=== PATIENT | male | born 1960 | race Caucasian/White ===

== ENCOUNTER 2021-04-11 10:19 | Outpatient (CLI) | payer OTHER, SELFPAY ==
[2021-04-11 11:44] LABS: Basophils Absolute Auto 0.1 K/mm3 (0.0-0.1); Basophils Percent Auto 2.2 % (0.2-1.2); Eosinophils Percent Auto 0.9 % (0-4.4); Hematocrit 38.2 % (42.0-52.0); Hemoglobin 12.8 g/dL (14.0-18.0); Immature Granulocyte Absolute 0.02 K/mm3 (0.00-0.031); Immature Granulocyte Percent A 0.6 % (0-0.5); Lymphocytes Absolute Auto 0.55 K/mm3 (0.9-3.2); Lymphocytes Percent Auto 17.3 % (18.3-44.2); Mean Corpuscular HGB Conc 33.5 g/dl (32-36); Mean Corpuscular Hemoglobin 38.2 pg (26-34); Mean Platelet Volume 10.2 fl (7.4-10.4); Monocytes Absolute Auto 0.3 K/mm3 (0.1-0.6); Monocytes Percent Auto 10.7 % (2.6-8.5); Neutrophils Absolute Auto 2.2 K/mm3 (1.3-6.7); Neutrophils Percent Auto 68.3 % (45.5-73.1); Platelet Count Result 88 k/mm3 (150-375); Red Blood Count 3.35 M/mm3 (4.6-6.20); Red Cell Distribution Width 14.4 % (11.5-14.5); White Blood Count 3.2 K/mm3 (4.5-10.0)
[2021-04-11 13:08] LABS: Vitamin D 25 Hydroxy 25.5 ng/mL
[2021-04-11 13:12] LABS: Erythrocyte Sedimentation Rate 103 mm/hr (0-20)
[2021-04-11 13:59] LABS: Alanine Aminotransferase 91 U/L (4-50); Albumin Level 3.3 g/dL (3.5-5.1); Alkaline Phosphatase 146 U/L (38-126); Anion Gap 4 mmol/L (8-16); Aspartate Amino Transferase 309 U/L (17-59); Bilirubin,Total 3.2 mg/dL (0.2-1.3); Blood Urea Nitrogen 26 mg/dL (9-20); Calcium 9.3 mg/dL (8.4-10.2); Carbon Dioxide 31 mmol/L (22-30); Chloride 98 mmol/L (98-107); Cholesterol 182 mg/dL (0-200); Estimated Glomerular Filt Rate > 60; Glucose 119 mg/dL (65-110); HDL Direct 19 mg/dL; Potassium 4.7 mmol/L (3.4-5.0); Sodium 133 mmol/L (137-145); Triglycerides 241 mg/dL (<150); Uric Acid 7.1 mg/dL (3.5-8.5)
[2021-04-11 14:16] LABS: LDL Cholesterol Direct 111 mg/dL
[2021-04-11 14:31] LABS: Prostate Specific Antigen 0.9 ng/mL (< OR = 4.0)
[2021-04-11 14:50] LABS: Vitamin B12 > 1000.0 pg/mL (239-931)
[2021-04-11 15:12] LABS: Free T4 Free Thyroxine Reflex 1.02 ng/dL (0.78-2.19)
[2021-04-11 15:24] LABS: Hemoglobin A1C 4.2 % (<5.7)
[2021-04-11 15:56] LABS: Rheumatoid Factor 92.1 IU/ML (<12)
[2021-04-11 16:42] LABS: Total Triiodothyronine (T3) 2.39 NG/ML (0.97-1.69)
[2021-04-14 22:19] LABS: Anti Cyclic Citrullinated Pept <16 Units (<20)
== END 2021-04-11 10:20 | disposition home or self-care (01) ==
PROVIDERS: PCP Family Medicine; Visit Provider Family Medicine
DX: E55.9 Vitamin D deficiency, unspecified (principal); M25.50 Pain in unspecified joint; G62.9 Polyneuropathy, unspecified; I10 Essential (primary) hypertension; Z12.5 Encounter for screening for malignant neoplasm of prostate; Z13.220 Encounter for screening for lipoid disorders; Z00.00 Encounter for general adult medical examination without abnormal findings
CPT/HCPCS: 36415; 80053; 80061; 82306; 82607; 83036; 84153; 84439; 84443; 84480; 84550; 85025; 85652; 86038; 86200; 86430; G0103

== ENCOUNTER 2021-05-08 11:07 | Outpatient (CLI) | payer OTHER, SELFPAY ==
[2021-05-08 11:38] LABS: INR 1.1; Prothrombin Time 13.9 Seconds (11.1-14.7)
[2021-05-08 12:17] LABS: Iron 123 ug/dL (49-181)
[2021-05-08 12:27] LABS: Percent Iron Saturation 31 % (20-50)
[2021-05-08 12:49] LABS: Hepatitis B Surface Antigen Negative (Negative)
[2021-05-08 12:55] LABS: HAV RESULT Negative (Negative); Hepatitis B Core IgM Result Negative (Negative)
[2021-05-08 13:09] LABS: Hepatitis C Virus Antibody Reactive (Negative)
[2021-05-10 18:51] LABS: Hepatitis C RNA, Quant PCR 4090000 IU/mL
[2021-05-10 20:56] LABS: Ceruloplasmin 36 mg/dL (18-36)
[2021-05-11 20:13] LABS: Tissue Transglutaminase IgA Ab 3 U/mL (<4)
[2021-05-11 23:11] LABS: Tissue Transglutaminase IgG Ab 6 U/mL (<6)
[2021-05-11 23:58] LABS: Mitochondrial (M2) Ab (IgG) <=20.0 U (<=20.0)
[2021-05-12 18:47] LABS: Alpha Fetoprotein Tumor Marker 3.8 ng/mL (<6.1)
== END 2021-05-08 11:08 | disposition home or self-care (01) ==
PROVIDERS: PCP Family Medicine; Visit Provider Nurse Practitioner Family
DX: R74.8 Abnormal levels of other serum enzymes (principal)
CPT/HCPCS: 36415; 80074; 82104; 82105; 82390; 82728; 83516; 83520; 83540; 83550; 85610; 87522

== ENCOUNTER 2021-05-12 11:53 | Outpatient (CLI) | payer OTHER, SELFPAY ==
[2021-05-12 12:55] LABS: Basophils Absolute Auto 0.1 K/mm3 (0.0-0.1); Basophils Percent Auto 2.9 % (0.2-1.2); Eosinophils Absolute Auto 0.2 K/mm3 (0-0.3); Eosinophils Percent Auto 5.4 % (0-4.4); Hematocrit 34.2 % (42.0-52.0); Hemoglobin 11.5 g/dL (14.0-18.0); Immature Granulocyte Absolute 0.03 K/mm3 (0.00-0.031); Immature Granulocyte Percent A 1.1 % (0-0.5); Lymphocytes Absolute Auto 0.93 K/mm3 (0.9-3.2); Lymphocytes Percent Auto 33.2 % (18.3-44.2); Mean Corpuscular HGB Conc 33.6 g/dl (32-36); Mean Corpuscular Volume 115.9 fl (80-100); Mean Platelet Volume 9.9 fl (7.4-10.4); Monocytes Absolute Auto 0.4 K/mm3 (0.1-0.6); Monocytes Percent Auto 13.2 % (2.6-8.5); Neutrophils Absolute Auto 1.2 K/mm3 (1.3-6.7); Neutrophils Percent Auto 44.2 % (45.5-73.1); Platelet Count Result 84 k/mm3 (150-375); Red Blood Count 2.95 M/mm3 (4.6-6.20); Red Cell Distribution Width 15.5 % (11.5-14.5); White Blood Count 2.8 K/mm3 (4.5-10.0)
[2021-05-12 14:25] LABS: Alanine Aminotransferase 78 U/L (4-50); Albumin Level 3.2 g/dL (3.5-5.1); Alkaline Phosphatase 160 U/L (38-126); Anion Gap 5 mmol/L (8-16); Aspartate Amino Transferase 179 U/L (17-59); Bilirubin,Total 1.5 mg/dL (0.2-1.3); Blood Urea Nitrogen 19 mg/dL (9-20); Carbon Dioxide 27 mmol/L (22-30); Chloride 100 mmol/L (98-107); Estimated Glomerular Filt Rate > 60; Folic Acid 19.4 ng/mL (2.76->20); Glucose 87 mg/dL (65-110); Lactate Dehydrogenase 1039 U/L (313-618); Potassium 4.1 mmol/L (3.4-5.0); Sodium 132 mmol/L (137-145); Vitamin B12 > 1000.0 pg/mL (239-931)
== END 2021-05-12 11:54 | disposition home or self-care (01) ==
PROVIDERS: PCP Family Medicine; Visit Provider Internal Medicine Hematology & Oncology
DX: D61.818 Other pancytopenia (principal)
CPT/HCPCS: 36415; 80053; 82607; 82746; 83615; 85025

== ENCOUNTER 2021-05-27 07:51 | Outpatient (CLI) | payer OTHER, SELFPAY ==
--- NOTE | ~2021-05-27 | US_ITS ---
US abdomen limited INDICATION: Abnormal liver function tests PROCEDURE: Realtime right upper abdominal ultrasound. COMPARISON: No prior studies for comparison. FINDINGS: The pancreas is normal without focal mass or pancreatic ductal dilation. Liver surface is nodular, compatible with cirrhosis. No focal hepatic masses are identified. No significant biliary di latation. There is normal directional flow in the portal vein. Gallbladder is not well distended, although there appears to be gallbladder wall thickening. Common bile duct measures 4 mm. No sonographic Moore's sign. IMPRESSION: 1: Cirrhosis of the liver. 2: Mild gallbladder wall thickening. This could indicate interstitial edema, chronic liver disease o r chronic cholecystitis. Reviewed, dictated and finalized at location A. IMPRESSION: 1: Cirrhosis of the liver. 2: Mild gallbladder wall thickening. This could indicate interstitial edema, c hronic liver disease or chronic cholecystitis.
== END 2021-05-27 07:52 | disposition home or self-care (01) ==
LOC: ANHIMG 07:53
PROVIDERS: PCP Family Medicine; Visit Provider Nurse Practitioner Family
DX: R74.8 Abnormal levels of other serum enzymes (principal); M48.061 Spinal stenosis, lumbar region without neurogenic claudication; K76.0 Fatty (change of) liver, not elsewhere classified
CPT/HCPCS: 76705

== ENCOUNTER 2021-06-12 02:03 | Day surgery (SDC) | payer OTHER, SELFPAY ==
[2021-06-02 11:02] VITALS: BMI 24.1
--- NOTE | 2021-06-09 18:54 | P.PNAN_ITS ---
Anes - Initial Pre Proc Eval Procedure: Operation Date: 06/12/21 09:00 Proposed Procedures p Esophagogastroduodenoscopy & Screening Colonoscopy - Dur Ugalde MD Date/Time: 06/09/21 18:54 Surgeon: Dru Lehman MD Pre Op Diagnosis: neoplasm screening, epigastric pain Patient Data Age: 60 Gender: M Height: 1.78 m Weight: 76.4 kg Allergies Allergy/AdvReac Type Severity Reaction Status Date / Time No Known Allergies Allergy Verified 06/12/21 08:11 Home Medications Medication Instructions Recorded Confirmed Type lisinopril 10 1 tablet PO DAILY #90 tablet 03/27/21 06/12/21 Rx mg-hydrochlorothiazide 12.5 mg tablet Patient hx anesthesia problems: none Family hx anesthesia problems: none Results Review: All pre-operative results and documents have been reviewed as part of the pre-operative evaluation. [facility] Past Medical History Medical History (Updated 05/08/21 @ 13:06 by REECE Jacobson) Alcohol abuse Arthritis Asthma Encounter for screening colonoscopy Essential (primary) hypertension History of vitreous hemorrhage of left eye 08/2018 Tobacco abuse Surgical History Surgical History History of vitrectomy 08/2018 - Left Social History Social History Smoking packs per day: 0.5 Smoking cigarettes per day: 10.0 Years smoked: 30 Smoking pack-years: 15.00 Smoking status: Current every day smoker Tobacco type: cigarettes Alcohol intake: current Drinks per week: 14 Alcohol use details: beer Substance use: current Substance use type: marijuana Other substance usage details: occasionally Living arrangements: alone Gender identity (if verbalized by the patient): Male Spiritual care concerns: No Anes - Eval Final PreProcedure Day of Procedure 06/09/21 18:54 Patient weight: normal Heart: regular rate and rhythm Lungs: clear to auscultation and normal air movement Airway: Mallampati scale class II Neurological: alert and oriented Last oral intake: >/= 8 hours ASA classification: III Emergent: no Anesthetic plan: proceed Anesthesia type and monitoring: general GIVS and standard monitoring Results Review: All pre-operative results and documents have been reviewed as part of the pre-operative evaluation. Informed Consent: The patient's anesthetic plan and its attendant risks and benefits were discussed with the patient/family/POA. Questions were solicited and answers provided to the satisfaction of the patient/family/POA.
[2021-06-12 08:14] VITALS: BP 171/79; PULSE 84; RESP 16; TEMP 36.2; O2SAT 100
[2021-06-12] MEDS: LACTATED RINGERS 1,000 ML 150 ML IV CONT (08:21)
--- NOTE | 2021-06-12 08:40 | PM.HPGS ---
History of Present Illness History of Present Illness Consent: Risks, benefits, and alternatives have been discussed and questions answered. Patient agrees to proceed with procedure. Chief complaint: neoplasm screening, epigastric pain Narrative: Francesco Fox is a 60 year old male with upper abdominal pain and elevated liver enzymes with pancytopenia, work up revealed new diagnosis of HCV cirrhosis, also drinks 2 beers daily for years. Never had scopes Review of Systems Constitutional: Constitutional: Denies headache(s) and Denies weakness Eyes: Eyes: Denies blurry vision ENT: Reports Normal hearing present, Denies headache(s) and Denies neck pain Cardiovascular: Cardiovascular: Denies chest pain and Denies dyspnea Respiratory: Respiratory: Denies dyspnea Gastrointestinal: Gastrointestinal: Reports no additional gastrointestinal complaints Genitourinary: Genitourinary: Denies dysuria Musculoskeletal: Musculoskeletal: Denies neck pain Integumentary/Breasts: Skin/Breast: Denies dry skin Neurologic: Reports Normal hearing present, Denies headache(s) and Denies weakness Psychiatric: Psychiatric: Denies anxiety Endocrine: Endocrine: Denies change in body appearance Hematologic/Lymphatic: Hematologic/Lymphatic: Denies easy bleeding Allergic/Immunologic: Allergic/Immunologic: Denies urticaria PMFSH Past Medical History Medical History (Updated 06/12/21 @ 08:41 by Dru Lehman MD) Alcohol abuse Arthritis Asthma Chronic hepatitis C with cirrhosis Encounter for screening colonoscopy Essential (primary) hypertension History of vitreous hemorrhage of left eye 08/2018 Tobacco abuse Surgical History Surgical History History of vitrectomy 08/2018 - Left Social History Social History Smoking packs per day: 0.5 Smoking cigarettes per day: 10.0 Years smoked: 30 Smoking pack-years: 15.00 Smoking status: Current every day smoker Tobacco type: cigarettes Alcohol intake: current Drinks per week: 14 Alcohol use details: beer Substance use: current Substance use type: marijuana Other substance usage details: occasionally Living arrangements: alone Gender identity (if verbalized by the patient): Male Spiritual care concerns: No Meds Home Medications and Allergies Home Medications Medication Instructions Recorded Confirmed Type lisinopril 10 1 tablet PO DAILY #90 tablet 03/27/21 06/12/21 Rx mg-hydrochlorothiazide 12.5 mg tablet Allergies Allergy/AdvReac Type Severity Reaction Status Date / Time No Known Allergies Allergy Verified 06/12/21 08:11 Vital Signs Vital Signs - 24 hr 06/12/21 08:14 Temperature 97.1 F L Pulse Rate 84 Respiratory Rate 16 Blood Pressure 171/79 H Pulse Oximetry 100 Exam Const: General: comfortable and no acute distress HENMT: General nose exam: Normal nares present Eyes: General: appearance normal, both eyes and all related structures Neck: Neck: no JVD Resp: Auscultation: clear to auscultation bilaterally Cardio: Rate: regular rate Rhythm: regular rhythm GI: Inspection: non-distended GI Palp: Yes Soft to palpation Skin: General skin exam: normal color Neuro: General: gait normal Speech: normal speech Extrem: General: normal to inspection Psych: Mental Status: mental status grossly normal Assessment and Plan Assessment and plan (1) Chronic hepatitis C with cirrhosis: Code(s): B18.2 - Chronic viral hepatitis C; K74.60 - Unspecified cirrhosis of liver Status: Acute Assessment and Plan: egd to assess if varices, pgh, etc then will need follow-up in office to discuss options of treatment (never been treated) (2) Encounter for screening colonoscopy: Code(s): Z12.11 - Encounter for screening for malignant neoplasm of colon Status: Acute
[2021-06-12 09:09] VITALS: BP 151/94; PULSE 72; RESP 12; O2SAT 100
[2021-06-12 09:19] VITALS: BP 166/97; PULSE 66; RESP 14; O2SAT 100
[2021-06-12 09:29] VITALS: BP 180/99; PULSE 64; RESP 16; O2SAT 100
== END 2021-06-12 09:57 | disposition home or self-care (01) ==
PROVIDERS: PCP Family Medicine; Visit Provider Internal Medicine Gastroenterology
PROC: 0DJ08ZZ Inspection of Upper Intestinal Tract, Via Natural or Artificial Opening Endoscopic (ICD-10-PCS; CPT 43235; principal; 2021-06-12 09:00)
DX: Z12.11 Encounter for screening for malignant neoplasm of colon (principal); K64.8 Other hemorrhoids; K29.50 Unspecified chronic gastritis without bleeding; K29.80 Duodenitis without bleeding; K44.9 Diaphragmatic hernia without obstruction or gangrene; K63.5 Polyp of colon; D12.4 Benign neoplasm of descending colon; R10.13 Epigastric pain; K74.60 Unspecified cirrhosis of liver; D61.818 Other pancytopenia
CPT/HCPCS: 45380; 45385; 43239; 88305; J2001; J2704; J7120

== ENCOUNTER 2021-07-11 11:05 | Outpatient (CLI) | payer OTHER, SELFPAY ==
[2021-07-11 11:55] LABS: Basophils Absolute Auto 0.1 K/mm3 (0.0-0.1); Basophils Percent Auto 2.7 % (0.2-1.2); Eosinophils Absolute Auto 0.2 K/mm3 (0-0.3); Eosinophils Percent Auto 6.3 % (0-4.4); Hematocrit 35.9 % (42.0-52.0); Hemoglobin 11.7 g/dL (14.0-18.0); Immature Granulocyte Absolute 0.03 K/mm3 (0.00-0.031); Immature Granulocyte Percent A 0.9 % (0-0.5); Lymphocytes Absolute Auto 0.81 K/mm3 (0.9-3.2); Lymphocytes Percent Auto 24.3 % (18.3-44.2); Mean Corpuscular HGB Conc 32.6 g/dl (32-36); Mean Corpuscular Hemoglobin 36.8 pg (26-34); Mean Corpuscular Volume 112.9 fl (80-100); Mean Platelet Volume 9.6 fl (7.4-10.4); Monocytes Absolute Auto 0.5 K/mm3 (0.1-0.6); Monocytes Percent Auto 15.3 % (2.6-8.5); Neutrophils Absolute Auto 1.7 K/mm3 (1.3-6.7); Neutrophils Percent Auto 50.5 % (45.5-73.1); Platelet Count Result 89 k/mm3 (150-375); Red Blood Count 3.18 M/mm3 (4.6-6.20); Red Cell Distribution Width 13.5 % (11.5-14.5); White Blood Count 3.3 K/mm3 (4.5-10.0)
[2021-07-11 12:09] LABS: Alanine Aminotransferase 56 U/L (4-50); Albumin Level 3.1 g/dL (3.5-5.1); Alkaline Phosphatase 226 U/L (38-126); Anion Gap 5 mmol/L (8-16); Aspartate Amino Transferase 104 U/L (17-59); Bilirubin,Total 0.9 mg/dL (0.2-1.3); Blood Urea Nitrogen 18 mg/dL (9-20); Calcium 8.5 mg/dL (8.4-10.2); Carbon Dioxide 27 mmol/L (22-30); Chloride 100 mmol/L (98-107); Estimated Glomerular Filt Rate > 60; Glucose 127 mg/dL (65-110); Potassium 4.4 mmol/L (3.4-5.0); Sodium 132 mmol/L (137-145)
[2021-07-11 12:10] LABS: Lipase 245 U/L (23-300)
[2021-07-11 21:18] LABS: Free T4 Free Thyroxine Reflex 0.81 ng/dL (0.78-2.19)
[2021-07-11 22:02] LABS: Total Triiodothyronine (T3) 2.58 NG/ML (0.97-1.69)
== END 2021-07-11 11:06 | disposition home or self-care (01) ==
PROVIDERS: Nurse Practitioner Family; PCP Family Medicine; Visit Provider Family Medicine
DX: B18.2 Chronic viral hepatitis C (principal); K74.60 Unspecified cirrhosis of liver; I10 Essential (primary) hypertension; F10.10 Alcohol abuse, uncomplicated; R10.9 Unspecified abdominal pain; R94.6 Abnormal results of thyroid function studies
CPT/HCPCS: 36415; 80053; 83690; 84439; 84443; 84480; 85025

== ENCOUNTER 2021-12-04 14:51 | Outpatient (CLI) | payer OTHER, SELFPAY ==
[2021-12-04 15:29] LABS: Basophils Absolute Auto 0.1 K/mm3 (0.0-0.1); Eosinophils Absolute Auto 0.2 K/mm3 (0-0.3); Eosinophils Percent Auto 7.7 % (0-4.4); Hematocrit 34.4 % (42.0-52.0); Hemoglobin 11.6 g/dL (14.0-18.0); Immature Granulocyte Absolute 0.01 K/mm3 (0.00-0.031); Immature Granulocyte Percent A 0.3 % (0-0.5); Lymphocytes Percent Auto 26.8 % (18.3-44.2); Mean Corpuscular HGB Conc 33.7 g/dl (32-36); Mean Corpuscular Hemoglobin 37.1 pg (26-34); Mean Corpuscular Volume 109.9 fl (80-100); Mean Platelet Volume 9.4 fl (7.4-10.4); Monocytes Absolute Auto 0.5 K/mm3 (0.1-0.6); Monocytes Percent Auto 17.8 % (2.6-8.5); Neutrophils Absolute Auto 1.3 K/mm3 (1.3-6.7); Neutrophils Percent Auto 44.4 % (45.5-73.1); Platelet Count Result 91 k/mm3 (150-375); Red Blood Count 3.13 M/mm3 (4.6-6.20); Red Cell Distribution Width 14.3 % (11.5-14.5)
[2021-12-04 15:39] LABS: Alanine Aminotransferase 71 U/L (4-50); Alkaline Phosphatase 181 U/L (38-126); Anion Gap 4 mmol/L (8-16); Aspartate Amino Transferase 173 U/L (17-59); Bilirubin,Total 1.8 mg/dL (0.2-1.3); Blood Urea Nitrogen 16 mg/dL (9-20); Calcium 7.9 mg/dL (8.4-10.2); Carbon Dioxide 27 mmol/L (22-30); Chloride 98 mmol/L (98-107); Estimated Glomerular Filt Rate > 60; Glucose 102 mg/dL (65-110); Potassium 4.6 mmol/L (3.4-5.0); Sodium 129 mmol/L (137-145)
== END 2021-12-04 14:52 | disposition home or self-care (01) ==
PROVIDERS: PCP Family Medicine; Visit Provider Internal Medicine Hematology & Oncology
DX: D61.818 Other pancytopenia (principal)
CPT/HCPCS: 36415; 80053; 85025

== ENCOUNTER 2021-12-29 07:47 | Outpatient (CLI) | payer OTHER, SELFPAY ==
--- NOTE | ~2021-12-29 | US_ITS ---
EXAMINATION: US abdomen complete DATE: 12/29/2021 09:25 INDICATION: Chronic viral hepatitis TECHNIQUE: Multiple grayscale and Doppler ultrasound images of the abdomen were obtained. COMPARISON: 05/27/2021 FINDINGS: The head and body of the pancreas are normal. The pancreatic tail is obscured by bowel gas. The liver demonstrates increased echogenicity and heterogeneous echotexture. There is nodularity of the liver surface. Normal hepatopetal flow in the main portal vein. There is no pericholecystic fluid or cholelithiasis. Mild gallbladder wall thickening is noted, likely related to chronic liver diseas e. The normal common bile duct measures 4 mm. There was no sonographic Moore sign. The visualized po rtions of the aorta and inferior vena cava are normal. The right kidney measures 12.5 x 7.8 x 6.4 cm. The left kidney measures 11.8 x 6.4 x 6.4 cm. The kidn eys demonstrate normal parenchymal echogenicity. There is no hydronephrosis. The spleen is normal in appearance and measures 12.0 cm. IMPRESSION: 1. Cirrhosis. Reviewed, dictated and finalized at location B. IMPRESSION: 1. Cirrhosis.
[2021-12-29 09:33] LABS: Hematocrit 36.4 % (42.0-52.0); Hemoglobin 12.5 g/dL (14.0-18.0); Mean Corpuscular HGB Conc 34.3 g/dl (32-36); Mean Corpuscular Hemoglobin 36.4 pg (26-34); Mean Corpuscular Volume 106.1 fl (80-100); Mean Platelet Volume 9.9 fl (7.4-10.4); Platelet Count Result 89 k/mm3 (150-375); Red Blood Count 3.43 M/mm3 (4.6-6.20); Red Cell Distribution Width 14.6 % (11.5-14.5); White Blood Count 3.1 K/mm3 (4.5-10.0)
[2021-12-29 09:55] LABS: Alanine Aminotransferase 59 U/L (4-50); Albumin Level 3.4 g/dL (3.5-5.1); Alkaline Phosphatase 152 U/L (38-126); Anion Gap 4 mmol/L (8-16); Aspartate Amino Transferase 141 U/L (17-59); Blood Urea Nitrogen 13 mg/dL (9-20); Calcium 8.2 mg/dL (8.4-10.2); Carbon Dioxide 28 mmol/L (22-30); Chloride 97 mmol/L (98-107); Estimated Glomerular Filt Rate > 60; Glucose 91 mg/dL (65-110); INR 1.3; Prothrombin Time 15.2 Seconds (11.1-14.7); Sodium 129 mmol/L (137-145)
[2021-12-29 11:24] LABS: Free T4 Free Thyroxine Reflex 0.96 ng/dL (0.78-2.19)
[2021-12-29 12:08] LABS: Total Triiodothyronine (T3) 1.85 NG/ML (0.97-1.69)
== END 2021-12-29 07:48 | disposition home or self-care (01) ==
PROVIDERS: PCP Family Medicine; Visit Provider Internal Medicine Gastroenterology
DX: B18.2 Chronic viral hepatitis C (principal); K74.60 Unspecified cirrhosis of liver; E03.9 Hypothyroidism, unspecified; E55.9 Vitamin D deficiency, unspecified
CPT/HCPCS: 36415; 76700; 80053; 82306; 84439; 84443; 84480; 85027; 85610

== ENCOUNTER 2022-03-09 10:15 | Outpatient (CLI) | payer OTHER, SELFPAY ==
[2022-03-09 10:38] LABS: Hemoglobin 9.9 g/dL (14.0-18.0); Immature Platelet Fraction Pct 4.4 % (0.9-11.2); Mean Corpuscular Hemoglobin 37.5 pg (26-34); Mean Corpuscular Volume 113.6 fl (80-100); Mean Platelet Volume 10.1 fl (7.4-10.4); Platelet Count Result 77 k/mm3 (150-375); Red Blood Count 2.64 M/mm3 (4.6-6.20); Red Cell Distribution Width 15.7 % (11.5-14.5); White Blood Count 2.5 K/mm3 (4.5-10.0)
[2022-03-09 10:46] LABS: Alanine Aminotransferase 63 U/L (6-50); Alkaline Phosphatase 111 U/L (38-126); Anion Gap 3 mmol/L (8-16); Aspartate Amino Transferase 157 U/L (17-59); Bilirubin,Total 2.3 mg/dL (0.2-1.3); Blood Urea Nitrogen 21 mg/dL (9-20); Calcium 8.3 mg/dL (8.4-10.2); Carbon Dioxide 26 mmol/L (22-30); Chloride 102 mmol/L (98-107); Estimated Glomerular Filt Rate > 60; Glucose 132 mg/dL (65-110); Potassium 3.9 mmol/L (3.4-5.0); Sodium 131 mmol/L (137-145)
[2022-03-09 10:47] LABS: INR 1.3; Prothrombin Time 15.9 Seconds (11.1-14.7)
[2022-03-09 11:29] LABS: HIV 1/2 Ab P24 Ag Result Negative (Negative)
[2022-03-09 12:14] LABS: Free T4 Free Thyroxine Reflex 0.62 ng/dL (0.78-2.19)
[2022-03-13 13:43] LABS: Hepatitis C Viral RNA PCR 2110000 IU/mL
[2022-03-15 07:14] LABS: HCV Genotype, LiPA 1a
[2022-03-15 17:34] LABS: ALT 47 U/L (9-46); Alpha-2-Macroglobulin 311 mg/dL (106-279); Apolipoprotein A1 113 mg/dL (94-176); Fibrosis Score 0.98; Fibrosis Stage F4; GGT 126 U/L (3-70); Haptoglobin <8 mg/dL (43-212); Necroinflammat Act Grade A1-A2; Total Bilirubin 2.3 mg/dL (0.2-1.2)
== END 2022-03-09 10:16 | disposition home or self-care (01) ==
LOC: ANHLAB 10:16
PROVIDERS: Nurse Practitioner Family; PCP Family Medicine; Visit Provider Internal Medicine Gastroenterology
DX: B18.2 Chronic viral hepatitis C (principal); K74.60 Unspecified cirrhosis of liver; E03.9 Hypothyroidism, unspecified
CPT/HCPCS: 36415; 80053; 81596; 84439; 84443; 85027; 85055; 85610; 86703; 87522; G0432

== ENCOUNTER 2022-06-19 14:17 | Outpatient (CLI) | payer OTHER, SELFPAY ==
[2022-06-19 20:02] LABS: Alanine Aminotransferase 63 U/L (6-50); Albumin Level 2.9 g/dL (3.5-5.1); Alkaline Phosphatase 187 U/L (38-126); Anion Gap 6 mmol/L (8-16); Aspartate Amino Transferase 168 U/L (17-59); Bilirubin,Total 2.4 mg/dL (0.2-1.3); Blood Urea Nitrogen 16 mg/dL (9-20); Calcium 7.9 mg/dL (8.4-10.2); Carbon Dioxide 28 mmol/L (22-30); Chloride 98 mmol/L (98-107); Estimated Glomerular Filt Rate > 60; Glucose 100 mg/dL (65-110); Potassium 4.1 mmol/L (3.4-5.0); Sodium 132 mmol/L (137-145)
[2022-06-19 20:15] LABS: Free T4 Free Thyroxine 1.72 ng/mL (0.78-2.19)
== END 2022-06-19 14:18 | disposition home or self-care (01) ==
LOC: ANHGOSHLAB 14:19
PROVIDERS: PCP Family Medicine; Visit Provider Nurse Practitioner Family
DX: E03.9 Hypothyroidism, unspecified (principal); I10 Essential (primary) hypertension
CPT/HCPCS: 36415; 80053; 84439; 84443

== ENCOUNTER 2022-12-27 14:22 | Outpatient (CLI) | payer OTHER, SELFPAY ==
[2022-12-27 14:52] LABS: Hematocrit 32.1 % (42.0-52.0); Hemoglobin 10.7 g/dL (14.0-18.0); Mean Corpuscular HGB Conc 33.3 g/dl (32-36); Mean Corpuscular Hemoglobin 37.7 pg (26-34); Mean Platelet Volume 9.6 fl (7.4-10.4); Platelet Count Result 113 k/mm3 (150-375); Red Blood Count 2.84 M/mm3 (4.6-6.20); Red Cell Distribution Width 17.3 % (11.5-14.5); White Blood Count 4.3 K/mm3 (4.5-10.0)
[2022-12-27 14:58] LABS: Cholesterol 165 mg/dL (0-200); HDL Direct 42 mg/dL; Triglycerides 98 mg/dL (<150)
[2022-12-27 14:59] LABS: Alanine Aminotransferase 83 U/L (6-50); Albumin Level 3.3 g/dL (3.5-5.1); Alkaline Phosphatase 180 U/L (38-126); Anion Gap 5 mmol/L (8-16); Aspartate Amino Transferase 180 U/L (17-59); Bilirubin,Total 2.6 mg/dL (0.2-1.3); Blood Urea Nitrogen 17 mg/dL (9-20); Calcium 7.9 mg/dL (8.4-10.2); Carbon Dioxide 27 mmol/L (22-30); Chloride 95 mmol/L (98-107); Estimated Glomerular Filt Rate > 60; Glucose 76 mg/dL (65-110); Potassium 4.5 mmol/L (3.4-5.0); Sodium 127 mmol/L (137-145)
[2022-12-27 15:02] LABS: INR 1.1; Prothrombin Time 15.1 Seconds (11.1-14.7)
[2022-12-27 15:08] LABS: LDL Cholesterol Direct 90 mg/dL
[2022-12-27 18:43] LABS: Vitamin D 25 Hydroxy 31.4 ng/mL
[2022-12-27 19:33] LABS: Free T4 Free Thyroxine Reflex 0.97 ng/dL (0.78-2.19)
[2022-12-27 21:34] LABS: Total Triiodothyronine (T3) 1.33 NG/ML (0.97-1.69)
== END 2022-12-27 14:23 | disposition home or self-care (01) ==
PROVIDERS: PCP Family Medicine; Visit Provider Internal Medicine Gastroenterology
DX: B18.2 Chronic viral hepatitis C (principal); K74.60 Unspecified cirrhosis of liver; E53.8 Deficiency of other specified B group vitamins; Z12.5 Encounter for screening for malignant neoplasm of prostate; R73.9 Hyperglycemia, unspecified; E03.9 Hypothyroidism, unspecified; E55.9 Vitamin D deficiency, unspecified; E78.5 Hyperlipidemia, unspecified
CPT/HCPCS: 36415; 80053; 80061; 82306; 82607; 83036; 84153; 84439; 84443; 84480; 85027; 85610; G0103

== ENCOUNTER 2023-02-13 12:44 | Outpatient (CLI) | payer OTHER, SELFPAY ==
--- NOTE | ~2023-02-13 | CT_ITS ---
CT Scan of the Chest without Contrast: Clinical Indication: Lung cancer screening, personal history of nicotine dependence Technique: Contiguous sections were acquired throughout the chest without intravenous contrast. Dose reduction technique was used on this scan by utilizing automated exposure control and iterative recon struction technique. The dose-length product (DLP) was 117.40 mGy-cm. Findings: There is no evidence of any significant mediastinal, hilar or axillary lymphadenopathy. There are ath erosclerotic calcifications of the aorta and coronary arteries. There is no evidence of pleural or pericardial effusion. The lungs are clear. No pulmonary nodules or infiltrates are noted. Images through the upper abdomen reveal medullary nephrocalcinosis bilaterally. Micronodular contour of the liver present. Impression: Lung RADS 1: Negative. 12 month follow-up screening CT advised. Cirrhotic change of the liver. Medullary nephrocalcinosis. Reviewed, dictated and finalized at [facility]. Impression: Lung RADS 1: Negative. 12 month follow-up screening CT advised. Cirrhotic change of the liver. Medullary nephrocalcinosis.
--- NOTE | 2023-02-17 20:06 | WPDPFTINT ---
PFT Procedure Performed PFT Procedure Performed Plethysmography (Lung Vol) Diffusing Cap (DLCO) PFT Interpretation DOS: 02/13/2023 REQUESTING: Aleshia Maddox PA-C REASON FOR TESTING: asthma, tobacco use PULMONARY FUNCTION TESTS The results are not reliable or reproducible. Spirometry: Spirometry could not be reliably obtained so results are not available. Bronchodilator was administered with a drop in the FEV1, 22%. Without reliable baseline results, bronchodilator data is not reliable. Lung volumes: Total lung capacity is 5.38, 77% predicted, below normal consistent with possible restriction. Residual volume is 2.03 L, 89%, possibly normal. RV /TLC is 38 %, in the normal range. Airway resistance is 4.11, 356%, increased. Diffusion: DLCO is 11.8, 42% predicted, severely reduced. DLCO/VA is 2.71, 65%, mildly reduced. Flow volume loop: Not reproducible. IMPRESSION: This study is not reliable. The patient struggled with the effort requirement. The patient had increased shortness of breath and fatigue, and toward the last flow volume loop was dizzy and lightheaded. It is not possible to derive meaningful information based on these results. It is possible that diffusion is low. It is possible there is a restrictive impairment. Lurdes Roper MD
--- NOTE | 2023-02-17 20:23 | WPDSIXMINUTE ---
Six Minute Walk Procedure Procedure Performed Pulmonary Stress Test (6 min walk) Six Minute Walk Six Minute Walk: DATE OF SERVICE: 02/13/2023 REQUESTING: Aleshia Maddox PA-C REASON FOR TESTING: asthma, tobacco use SIX MINUTE WALK This test was conducted per ATS guidelines. The initial saturation was 96%, and initial heart rate was 96. The patient walked without stopping, completing 800 ft/ 243.8 m. The saturation at the end of testing was 97%, and the heart rate was 96. the patient was breathing room air during testing. No walking aid was used. The patient had dyspnea and fatigue the start of the test and these increased at the end of the test. IMPRESSION: This is a normal study. The patient did not require supplemental oxygen with exertion. Lurdes Roper MD
== END 2023-02-13 12:45 | disposition home or self-care (01) ==
LOC: ANHPFT 12:45
PROVIDERS: PCP Family Medicine; Visit Provider Physician Assistant
DX: Z12.2 Encounter for screening for malignant neoplasm of respiratory organs (principal); J45.909 Unspecified asthma, uncomplicated; F17.210 Nicotine dependence, cigarettes, uncomplicated
CPT/HCPCS: 71271; 94060; 94618; 94726; 94729

== ENCOUNTER 2023-03-12 04:54 | Inpatient (IN) | payer SELFPAY ==
[2023-03-12] VITALS (32 sets, daily range): BP systolic 134–196; BP diastolic 70–101; PULSE 74–107; RESP 12–20; TEMP 36.9; O2SAT 97–100; BMI 24.9
--- NOTE | 2023-03-12 | ECHO_ITS ---
Patient Info Name: Francesco Fox Age: 62 years : 1960 Gender: Male Ht: 70 in Wt: 176 lbs BSA: 1.99 m2 HR: 80 bpm BP: 196 / 101 mmHg Technical Quality: Good Exam Date: 03/12/2023 11:17 AM Exam Location: [facility] Pulmonary Patient Status: Inpatient Admit Date: 03/12/2023 Staff Ordering Physician: Bay Ugarte MD Rn Imcu: Aga May RDCS Attending Provider: Oc Mclain MD Exam Type: CA echo doppler color flow Study Info Indications - LE SWELLING Complete two-dimensional, color flow and Doppler transthoracic echocardiogram is performed. Summary 1. Complete two-dimensional, color flow and Doppler transthoracic echocardiogram is performed. 2. Left ventricular chamber dimension is normal. 3. Left ventricular systolic function is normal, estimated at 60-65%. 4. There is mild concentric increased left ventricular wall thickness. 5. The left ventricular diastolic function is grade I diastolic dysfunction. 6. E/e' 9 is minimally elevated. 7. Global longitudinal strain is abnormal at -16.5%. 8. Left atrial chamber dimension is mildly enlarged. 9. There is moderate aortic valve sclerosis. 10. The mitral valve has mildly calcified annulus. 11. There is trace mitral valve regurgitation. 12. There is trace tricuspid valve regurgitation. 13. No pulmonary hypertension, estimated pulmonary arterial systolic pressure is 36 mmHg. Left Ventricle E/e' 9 is minimally elevated. Global longitudinal strain is abnormal at -16.5%. Left ventricular chamber dimension is normal. Left ventricular systolic function is normal, estimated at 60-65%. There is mild concentric increased left ventricular wall thickness. The left ventricular diastolic function is grade I diastolic dysfunction. Right Ventricle Right ventricular systolic function is normal and with normal TAPSE 2.9 cm. Right ventricular chamber dimension is normal. Left Atria Left atrial chamber dimension is mildly enlarged. Right Atria Right atrial chamber dimension is normal. Aortic Valve The aortic valve is trileaflet. There is moderate aortic valve sclerosis. There is no aortic valve stenosis. There is no aortic valve regurgitation. Pulmonic Valve There is no pulmonic regurgitation. Mitral Valve The mitral valve has mildly calcified annulus. There is no mitral valve stenosis. There is trace mitral valve regurgitation. Tricuspid Valve There is trace tricuspid valve regurgitation. No pulmonary hypertension, estimated pulmonary arterial systolic pressure is 36 mmHg. Pericardium/Pleural There is no pericardial effusion. Inferior Vena Cava Normal inferior vena cava with >50% collapse upon inspiration consistent with normal right atrial pressure, 5 mmHg. Aorta The aortic root size at the sinus of Valsalva is normal. Left Ventricular Outflow Tract Name Value Normal LVOT 2D LVOT Diameter 2.1 cm LVOT Doppler LVOT Peak Gradient 4 mmHg LVOT Mean Gradient 2 mmHg LVOT VTI 22 cm LVOT VTI/AV VTI Ratio 0.8 LVOT Stroke Volume 74 ml LVOT CO 5.9 l/min
--- NOTE | ~2023-03-12 | US_ITS ---
EXAMINATION: US carotid duplex BI DATE: 03/13/2023 09:31 INDICATION: Carotid stenosis. TECHNIQUE: Grayscale, color Doppler, and pulsed Doppler images of the cervical carotid arteries were obtained. The degree of vessel stenosis is placed in one of the following categories: normal, <50%, 5 0-69%, >=70% but less than near-occlusion, near-occlusion, or total occlusion. Note that percent sten osis relative to normal distal artery lumen diameter is indirectly measured from velocity measurement s as described by Tesfaye, et al. Radiology 2003; 229:340-346. COMPARISON: Neck CT 03/12/2023 FINDINGS: RIGHT: The right common carotid artery (CCA) peak systolic velocity (PSV) is 103 cm/s. The right internal ca rotid artery (ICA) PSV is 81 cm/s. The right ICA end-diastolic velocity (EDV) is 12 cm/s. The right I CA/CCA PSV ratio is 0.8. Grayscale and color Doppler images yield an estimate of <50% diameter reduct ion from plaque in the ICA. There is antegrade flow in the right vertebral artery. LEFT: The left CCA PSV is 88 cm/s. The left ICA PSV is 68 cm/s. The left ICA EDV is 16 cm/s. The left ICA/C CA PSV ratio is 0.8. Grayscale and color Doppler images yield an estimate of <50% diameter reduction from plaque in the ICA. There is antegrade flow in the left vertebral artery. IMPRESSION: 1. <50% stenosis in the right internal carotid artery. 2. <50% stenosis in the left internal carotid artery. Reviewed, dictated and finalized at location A.
--- NOTE | ~2023-03-12 | CT_ITS ---
CT scan of the Neck Technique: 2.5 mm axial scans were obtained through the neck after intravenous administration of 75 c c Omnipaque 350. Coronal and sagittal reconstructions of the neck were obtained. Dose reduction techn ique was used on this scan by utilizing automated exposure control and iterative reconstruction techn ique. The dose-length product (DLP) was 590.80 mGy-cm. Clinical History: Neck swelling Findings: There is diffuse subcutaneous soft tissue edema in the chin and bilateral mandibular regions, small s hotty lymph nodes present. There is edematous appearance of the bilateral submandibular glands. Bilat eral parotid glands are unremarkable. No focal fluid collection identified. Probable minimal infiltra tion of bilateral parapharyngeal fat. No abscess evident. There are prominent calcified plaques the bilateral carotid artery bifurcation regions. Suspected foc al at least moderate stenosis at the origin of the right internal carotid artery. No definite left IC A stenosis seen. The thyroid gland appears normal. Images of the lung apices reveal no abnormalities. Paranasal sinuse s and mastoid air cells are clear. Impression: Nonspecific diffuse subcutaneous soft tissue edema over the chin and mandibular regions with edematou s appearance of bile submandibular glands. Findings could reflect nonspecific infectious/inflammatory process. No abscess evident. Suspected at least moderate stenosis at the origin of the right internal carotid artery. Consider ded icated follow-up carotid imaging evaluation, as indicated. Reviewed, dictated and finalized at [facility]. Impression: Nonspecific diffuse subcutaneous soft tissue edema over the chin and mandibular regions with edematous appearance of bile submandibular glands. Findings could reflect nonspecific infectious/inflammatory process. No abscess evident. Suspected at least moderate stenosis at the origin of the right internal caroti d artery. Consider dedicated follow-up carotid imaging evaluation, as indicated .
[2023-03-12] MEDS: TRANEXAMIC ACID 1,000 MG/10 ML AMPUL 1000 MG IV PUSH (05:01)
--- NOTE | 2023-03-12 05:04 | PC.NURSE ---
tranexamic acid given over 10 minutes started at 0501 and finished at 0511. Pt placed 5L of nasal cannula for preoxygenation for intubation. 100 of graeme, and 200 of ketamine ordered by EDP Dr. Hinton. EDP Dr. Hinton discontinued orders due changed condition of patient. Pt placed on end tidal CO2.
--- NOTE | 2023-03-12 05:25 | ED.GENADULT ---
HPI - General Adult General Chief complaint: Allergic Reaction Stated complaint: Tongue swelling Time Seen by Provider: 03/12/23 07:56 History of Present Illness HPI narrative: This is a 62-year-old male with past history of angioedema of the tongue and hypertension, brought in by EMS for swelling of the tongue. EMS reports the patient took an old set of medications today and shortly thereafter noted swelling of the tongue. EMS reports the patient took Benadryl at home prior to calling. He was given 50 mg IV Benadryl, 125 mg Solu-Medrol IV and 0.5 mg epinephrine IM in route. Vital signs reported as within normal limits. On arrival, the patient is only able to answer with nodding and shaking his head. He acknowledges throat pain, difficulty swallowing and difficulty breathing. He denies pain elsewhere. Related Data Home Medications Medication Instructions Recorded Confirmed celecoxib 200 mg capsule 200 mg PO DAILY 12/25/22 01/15/23 Allergies Allergy/AdvReac Type Severity Reaction Status Date / Time lisinopril Allergy Swelling Verified 03/12/23 09:11 of Lip/Tongue/Throat Review of Systems Review of Systems: Review of systems limited due to acuity of patient's presentation PMFSH Past Medical History Medical History Adenomatous colon polyp Alcohol abuse Arthritis Asthma Chronic hepatitis C with cirrhosis Encounter for screening colonoscopy Essential (primary) hypertension Gastritis GERD (gastroesophageal reflux disease) History of vitreous hemorrhage of left eye 08/2018 Hypothyroidism (acquired) Thrombocytopenia Tobacco abuse Surgical History Surgical History History of vitrectomy (~08/2018) 08/2018 - Left Social History Social History Smoking packs per day: 1 Smoking cigarettes per day: 20.0 Years smoked: 40 Smoking pack-years: 40.00 Smoking status: Current every day smoker Tobacco type: cigarettes Alcohol intake: current Drinks per week: 42 Alcohol use details: beer Substance use: current Substance use type: marijuana Other substance usage details: occasionally Lack of Transportation: No Lack of Food: Never True Current Housing: Decline to Answer Concerned About Future Housing: Decline to Answer Difficulty Paying Gas/Electric Bills: Decline to Answer Difficulty Paying for Meds: Decline to Answer Currently Unemployed: Decline to Answer Education: Decline to Answer Difficulty w/ Childcare or Family Care: Decline to Answer Living arrangements: alone Occupation/Education: occupation Gender identity (if verbalized by the patient): Male Spiritual care concerns: No Exam Narrative: GENERAL: Well-developed, well-nourished, appears anxious HEAD: Normocephalic, atraumatic. EYES: PERRLA and EOMI. ENT: Significant swelling of the tongue, greater on the right side compared to the left with mild protrusion. The patient's voice is muffled. There is active drooling noted. Nares clear, no rhinorrhea or epistaxis. Mucous membranes moist. NECK: Supple. No adenopathy or masses. No carotid bruits or JVD CHEST: Clear to auscultation. No respiratory distress. No wheezes rales or rhonchi HEART: Regular rate and rhythm. No murmur heard. Normal peripheral pulses. ABDOMEN: Soft, nontender, nondistended, normal active bowel sounds. EXTREMITIES: Normal range of motion. 1+ bilateral lower extremity edema. SKIN: Warm, dry, no rash. NEURO: No focal deficits. Alert and oriented x3. PSYCH: Normal mood and affect. Course Course Emergency Course: 05:05 - The patient was prepped for awake intubation with ketamine for sedation. Prior to pushing induction medications, the patient spoke with a significantly clearer voice that he feels as though he can breathe better and is now able to swallow. He wishes
[2023-03-12] MEDS: AMPICILLIN SULB 3 GM/NS 100 ML 3 GM/100 ML VIAL IVPB (05:41)
[2023-03-12 06:04] LABS: Basophils Absolute Auto 0.1 K/mm3 (0.0-0.1); Basophils Percent Auto 1.5 % (0.2-1.2); Eosinophils Absolute Auto 0.1 K/mm3 (0-0.3); Hemoglobin 10.6 g/dL (14.0-18.0); Immature Granulocyte Absolute 0.05 K/mm3 (0.00-0.031); Immature Granulocyte Percent A 1.3 % (0-0.5); Immature Platelet Fraction Pct 3.6 % (0.9-11.2); Lymphocytes Absolute Auto 1.26 K/mm3 (0.9-3.2); Lymphocytes Percent Auto 31.5 % (18.3-44.2); Mean Corpuscular HGB Conc 34.2 g/dl (32-36); Mean Platelet Volume 10.4 fl (7.4-10.4); Monocytes Absolute Auto 0.6 K/mm3 (0.1-0.6); Monocytes Percent Auto 15.5 % (2.6-8.5); Neutrophils Absolute Auto 1.9 K/mm3 (1.3-6.7); Neutrophils Percent Auto 47.2 % (45.5-73.1); Platelet Count Result 101 k/mm3 (150-375); Red Blood Count 2.65 M/mm3 (4.6-6.20)
[2023-03-12 06:10] LABS: INR 1.2; Prothrombin Time 15.6 Seconds (11.1-14.7)
[2023-03-12 06:17] LABS: Alanine Aminotransferase 71 U/L (6-50); Albumin Level 3.2 g/dL (3.5-5.1); Alkaline Phosphatase 145 U/L (38-126); Anion Gap 8 mmol/L (8-16); Aspartate Amino Transferase 155 U/L (17-59); Bilirubin,Total 2.7 mg/dL (0.2-1.3); Blood Urea Nitrogen 16 mg/dL (9-20); Calcium 8.2 mg/dL (8.4-10.2); Carbon Dioxide 24 mmol/L (22-30); Chloride 95 mmol/L (98-107); Estimated CRCL calculation 86 ml/min; Estimated Glomerular Filt Rate > 60; Glucose 105 mg/dL (65-110); Potassium 3.7 mmol/L (3.4-5.0); Sodium 127 mmol/L (137-145)
[2023-03-12 06:29] LABS: Platelet Estimate Decreased (Adequate)
[2023-03-12 06:30] LABS: Anisocytosis 1+ (NORMAL); Hyperchromasia 1+ (NORMAL); Large Platelets Present; Macrocytosis 1+ (NORMAL); Schistocytes None Seen (NORMAL)
--- NOTE | 2023-03-12 07:15 | PC.NURSE ---
Assumed care. Resting comfortably on cart. No resp distress noted.
--- NOTE | 2023-03-12 07:40 | WPDCN ---
Assessment and Plan Assessment and plan (1) Angioedema of tongue: Code(s): T78.3XXA - Angioneurotic edema, initial encounter Status: Acute Assessment and Plan: Airway for the most part stable there is some right arytenoid process edema. Mild. The patient reports he is improving. Reports breathing was never the issue mostly just tongue swelling. Recommend admission at least for the day today take observed. Would recommend continued IV steroids 8-10 mg of Decadron q.8 hours for a total of 3 doses. Obviously hold lisinopril. Please call me with any questions thank you for this consult. HPI Data of Consult Date/Time: 03/12/23 07:40 Primary Care Provider: Carla Mcgovern MD Consult Narrative Narrative: Francesco Fox is a 62 year old male Who takes lisinopril. Reported tongue swelling. ENT consult for airway evaluation. Patient reports feeling improved since his ER admission. [facility] Past Medical History Medical History Adenomatous colon polyp Alcohol abuse Arthritis Asthma Chronic hepatitis C with cirrhosis Encounter for screening colonoscopy Essential (primary) hypertension Gastritis GERD (gastroesophageal reflux disease) History of vitreous hemorrhage of left eye 08/2018 Hypothyroidism (acquired) Thrombocytopenia Tobacco abuse Surgical History Surgical History History of vitrectomy (~08/2018) 08/2018 - Left Social History Social History Smoking packs per day: 1 Smoking cigarettes per day: 20.0 Years smoked: 40 Smoking pack-years: 40.00 Smoking status: Current every day smoker Tobacco type: cigarettes Alcohol intake: current Drinks per week: 14 Alcohol use details: beer Substance use: current Substance use type: marijuana Other substance usage details: occasionally Lack of Transportation: No Lack of Food: Never True Current Housing: Decline to Answer Concerned About Future Housing: Decline to Answer Difficulty Paying Gas/Electric Bills: Decline to Answer Difficulty Paying for Meds: Decline to Answer Currently Unemployed: Decline to Answer Education: Decline to Answer Difficulty w/ Childcare or Family Care: Decline to Answer Living arrangements: alone Occupation/Education: occupation Gender identity (if verbalized by the patient): Male Spiritual care concerns: No Meds Home Medications and Allergies Home Medications Medication Instructions Recorded Confirmed Type albuterol sulfate 90 mcg/actuation 2 puff inhalation Q4H PRN 06/19/22 01/15/23 Rx aerosol inhaler shortness of breath or wheezing #8.5 grams levothyroxine 112 mcg tablet 112 mcg PO DAILY #90 tabs 12/10/22 01/15/23 Rx celecoxib 200 mg capsule 200 mg PO DAILY 12/25/22 01/15/23 History lisinopril 10 1 tablet PO DAILY #90 tabs 12/25/22 01/15/23 Rx mg-hydrochlorothiazide 12.5 mg tablet omeprazole 40 mg capsule,delayed 40 mg PO DAILY #90 caps 12/25/22 01/15/23 Rx release mometasone-formoterol HFA 100 2 puff inhalation Q12H #13 grams 01/04/23 01/15/23 Rx mcg-5 mcg/actuation aerosol inhaler (Dulera) glecaprevir 100 mg-pibrentasvir 40 3 tablet PO DAILY 12 weeks #252 01/11/23 01/15/23 Rx mg tablet (Mavyret) tabs tiotropium bromide 18 mcg capsule 1 cap inhalation DAILY 1 month #30 01/15/23 01/15/23 Rx with inhalation device (Spiriva caps with HandiHaler) Allergies Allergy/AdvReac Type Severity Reaction Status Date / Time No Known Allergies Allergy Verified 01/15/23 14:02 Vital Signs Vital Signs - 24 hr 03/12/23 04:55 03/12/23 05:24 03/12/23 05:31 Pulse Rate 95 98 96 Respiratory Rate 12 15 15 Blood Pressure 172/78 H 173/83 H Pulse Oximetry 100 100 100 Oxygen Delivery Room Air Oxygen Flow Rate 03/12/23 05:46 03/12/23 06:01 03/12/23
--- NOTE | 2023-03-12 07:40 | WPDPROCEDUR ---
Procedures Other Procedures Procedure 1: Other Procedure: Procedures flexible laryngoscopy. All the consents obtained. Afrin and lidocaine squirted on the patient's bilateral nasal passages. 5 mm ICU flexible bronchoscope/laryngoscope utilize passed on the right nasal passage nose looks good soft palate good tongue base looks good every anatomic substrate look good other than the right arytenoid which was mildly edematous and nonobstructive. Patient tolerated the procedure very well minimal bleeding from the right nasal passage.
[2023-03-12] MEDS: LACTATED RINGERS 1,000 ML 125 ML IV CONT ×2 (08:00→16:36)
--- NOTE | 2023-03-12 08:00 | PC.NURSE ---
Resting on cart in no distress. Resp. unlabored. SPO2 100% with capnography 37-39.
--- NOTE | 2023-03-12 08:49 | WPDCNINT ---
Assessment and Plan Assessment and plan (1) Angioedema of tongue: Code(s): T78.3XXA - Angioneurotic edema, initial encounter Status: Acute Assessment and Plan: Likely secondary to lisinopril. Clinically improving. CT scan does not suggest any signs of Jay angina. Direct laryngoscopy exam shows some edema of the arytenoid Continue Decadron as per recommendation of ENT Closer monitoring in the ICU Pepcid Benadryl Discontinue lisinopril (2) Hypothyroidism (acquired): Code(s): E03.9 - Hypothyroidism, unspecified Status: Acute Assessment and Plan: TSH was check few months ago and was normal Continue levothyroxine (3) Pancytopenia: Code(s): D61.818 - Other pancytopenia Status: Acute Assessment and Plan: Chronic. Could be secondary to hepatitis-C No intervention at this time Monitor (4) Hyponatremia: Code(s): E87.1 - Hypo-osmolality and hyponatremia Status: Acute Assessment and Plan: Chronic and stable Can be secondary to a HCTZ that he is on Hold HCTZ for now as patient is going to get Lasix Monitor (5) Elevated liver enzymes: Code(s): R74.8 - Abnormal levels of other serum enzymes Status: Acute Assessment and Plan: Patient has hepatitis-C and cirrhosis and chronically elevated liver enzymes He recently saw GI in clinic He was supposed to start treatment for HCV but currently not on any. (6) Essential (primary) hypertension: Code(s): I10 - Essential (primary) hypertension Status: Acute Assessment and Plan: Discontinue lisinopril Hold HCTZ temporally due to low sodium Start Norvasc P.r.n. labetalol (7) GERD (gastroesophageal reflux disease): Code(s): K21.9 - Gastro-esophageal reflux disease without esophagitis Status: Acute Assessment and Plan: Pepcid (8) COPD (chronic obstructive pulmonary disease): Code(s): J44.9 - Chronic obstructive pulmonary disease, unspecified Status: Acute Assessment and Plan: Patient appears to have COPD could not complete the PFT testing Not in exacerbation Continue bronchodilators He is also on steroids (9) Tobacco abuse: Code(s): Z72.0 - Tobacco use Status: Acute Assessment and Plan: Patient was encouraged and counseled to quit smoking (10) Lower extremity edema: Code(s): R60.0 - Localized edema Status: Acute Assessment and Plan: Likely secondary to cirrhosis versus cor pulmonale Albumin is 3.2 Check echocardiogram Lasix IV Compression stockings Plan DVT prophylaxis -SCDs Stress ulcer prophylaxis -Pepcid Nutrition -NPO at this Code Status - Full Code Towing [employer] Consult Note Consult date: 03/12/23 Reason for consult: Angioedema HPI: Francesco Fox is a 62 year old male with past medical history GERD, hepatitis C, cirrhosis of the liver , pancytopenia and joint pain with positive RF, hypothyroidism who presented with chief complaint of swelling of tongue. Patient stated that he took his regular medications which he keeps in garage yesterday morning. He was initially asymptomatic during the day but when he went to sleep he noticed that his tongue was swollen and he had difficulty speaking. He did not feel short of breath and did not attempt try to eat at that time and presented the hospital. Patient did take Benadryl for coming to the hospital. Patient was given 50 mg of IV Benadryl 125 mg Solu-Medrol and 0.5 mg epinephrine IM and route by EMS. On arrival to ER patient had stable vital signs but did had difficulty with speech and swallowing. Initially the plan was to intubate patient but during his stay in ER patient's symptoms improved. CT neck was done and showed Nonspecific diffuse subcutaneous soft tissue edema over the chin and mandibular regions with edematous appearance of bile submandibular glands. Findings could reflect nonspecific infectious/inflammatory process. No absces
--- NOTE | 2023-03-12 08:50 | ADMGEN ---
This patient, Francesco Fox, was admitted to Intensive Care Unit-9. Patient/family oriented to hospital policies and general routines including ID bracelet, bed and alarms, visiting hours, pain management, procedures, bathroom and other care routines, personal items, smoking policy, room service/diet, and visiting hours. Information on how to activate the Rapid Response Team has been discussed. Patient/Family are encouraged to report perceived risks to care and to ask questions if they do not understand what they are told or what they should do.
[2023-03-12] MEDS: LABETALOL HCL INJ 100 MG/20 ML VIAL 20 MG IV PUSH ×2 (09:33→15:10)
[2023-03-12] MEDS: THIAMINE HCL 200 MG/2 ML VIAL 100 MG IV PUSH (09:33)
[2023-03-12] MEDS: FAMOTIDINE 20 MG/2 ML VIAL IV PUSH ×2 (09:34→22:20)
[2023-03-12] MEDS: FUROSEMIDE INJ 40 MG/4 ML VIAL IV PUSH (09:35)
[2023-03-12] MEDS: FOLIC ACID 1 MG/0.2 ML INJ IV PUSH (10:03)
[2023-03-12 11:00] LABS: Ammonia 33 umol/L (9-30)
--- NOTE | 2023-03-12 12:11 | PM.IMHP ---
H&P: HPI History of Present Illness Date/Time: 03/12/23 12:11 Chief Complaint: Allergic reaction Narrative: This is a 62-year-old male patient who has a history of attention and has had angioedema of the tongue in the past. The patient stated that he has been on lisinopril for many years. He stated that he has been having swelling on and off when he takes this medication but it is usually okay after taking Benadryl. This time the patient took Benadryl home prior to calling. He was also given 50 mg of IV Benadryl 125 mg of Solu-Medrol and 0.5 mg epinephrine IM in route. Patient has a thickened large tongue. Dr. Love was consulted and evaluated the patient. Dr. Ash performed a flexible laryngoscopy please see procedure note. It was noted intact the patient tolerated the procedure well and there was minimal bleeding from the right ear passage. It was noted and Dr. Ash note good soft palate good tongue base looks good every anatomic substrate look good other than the right arytenoid which was mildly edematous and nonobstructive.? Patient tolerated the procedure very well minimal bleeding from the right nasal passage. His H&H is 10.6 and 31.0 which appears to be his baseline. Sodium is low at 127. AST is 155 PO2 71 alkaline phosphatase is 145. Soft tissue CT of the neck was read as Nonspecific diffuse subcutaneous soft tissue edema over the chin and mandibular regions with edematous appearance of bile submandibular glands. Findings could reflect nonspecific infectious/inflammatory process. No abscess evident. Suspected at least moderate stenosis at the origin of the right internal carotid artery. Consider dedicated follow-up carotid imaging evaluation, as indicated. He was given Decadron, lactated Ringer's, Pepcid, thiamine, folic acid, Lasix, and Norvasc. The patient is being admitted to Icu inpatient status on the date of service of 03/12/2023. Review of Systems Review of Systems: All systems reviewed & are unremarkable except as noted in HPI and below Constitutional: Constitutional: Reports as per HPI and Reports no additional constitutional complaints Eyes: Eyes: Reports as per HPI and Reports no additional eye complaints ENT: Reports system reviewed and no additional complaints, except as documented and Reports Normal hearing present Cardiovascular: Cardiovascular: Reports no additional cardiovascular complaints Respiratory: Respiratory: Reports no additional respiratory complaints and Reports no additional respiratory complaints Gastrointestinal: Gastrointestinal: Reports as per HPI and Reports no additional gastrointestinal complaints Musculoskeletal: Musculoskeletal: Reports no additional musculoskeletal complaints Integumentary/Breasts: Skin/Breast: Reports system reviewed and no additional complaints, except as docu and Reports as per HPI Neurologic: Reports system reviewed and no additional complaints, except as documented, Reports as per HPI and Reports Normal hearing present Psychiatric: Psychiatric: Reports no additional psychiatric complaints and Reports as per HPI Endocrine: Endocrine: Reports no additional endocrine complaints Hematologic/Lymphatic: Hematologic/Lymphatic: Reports no additional hematologic/lymphatic complaints Allergic/Immunologic: Allergic/Immunologic: Reports no additional allergic/immunologic complaints [facility] Past Medical History Medical History (Updated 03/12/23 @ 16:11 by Christi Romo NP) Adenomatous colon polyp Alcohol abuse Arthritis Asthma Chronic hepatitis C with cirrhosis Encounter for screening colonoscopy Essential (primary) hypertension Gastritis GERD (gastroesophageal reflux disease) History of vitreous hemorrhage of left eye 08/2018 Hypothyroidism (acquired) Thrombocytopenia Tobacco abuse Surgical History Surgical History (Updated 03/12/23 @ 15:58 by Christi Romo NP) H/O colonoscopy with polypectomy History of tonsillectomy and adenoidectomy Hist
[2023-03-12] MEDS: hydrALAZINE HCL 20 MG/ML VIAL IV PUSH (12:30)
[2023-03-12] MEDS: amLODIPine BESYLATE 5 MG TABLET 10 MG PO (12:52)
[2023-03-12 13:04] LABS: NT Pro B Type Natriuretic Pept 82 pg/mL (19.9-100)
[2023-03-12] MEDS: FLUTICASONE/SALMETEROL 115-21 MCG INHALER 1 PUFF 2 PUFF INHALATION (20:02)
[2023-03-13] VITALS (16 sets, daily range): BP systolic 132–156; BP diastolic 67–86; PULSE 82–107; RESP 12–26; TEMP 36.6–37; O2SAT 90–100
[2023-03-13] MEDS: LACTATED RINGERS 1,000 ML 125 ML IV CONT (00:30)
[2023-03-13 04:06] LABS: Basophils Percent Auto 0.2 % (0.2-1.2); Hematocrit 27.1 % (42.0-52.0); Hemoglobin 9.4 g/dL (14.0-18.0); Immature Granulocyte Absolute 0.03 K/mm3 (0.00-0.031); Immature Granulocyte Percent A 0.5 % (0-0.5); Immature Platelet Fraction Pct 3.3 % (0.9-11.2); Lymphocytes Absolute Auto 0.34 K/mm3 (0.9-3.2); Lymphocytes Percent Auto 5.4 % (18.3-44.2); Mean Corpuscular HGB Conc 34.7 g/dl (32-36); Mean Corpuscular Hemoglobin 41.2 pg (26-34); Mean Corpuscular Volume 118.9 fl (80-100); Mean Platelet Volume 10.3 fl (7.4-10.4); Monocytes Absolute Auto 0.2 K/mm3 (0.1-0.6); Monocytes Percent Auto 2.7 % (2.6-8.5); Neutrophils Absolute Auto 5.7 K/mm3 (1.3-6.7); Neutrophils Percent Auto 91.2 % (45.5-73.1); Platelet Count Result 83 k/mm3 (150-375); Red Blood Count 2.28 M/mm3 (4.6-6.20); Red Cell Distribution Width 15.4 % (11.5-14.5); White Blood Count 6.3 K/mm3 (4.5-10.0)
[2023-03-13 04:18] LABS: Alanine Aminotransferase 55 U/L (6-50); Albumin Level 2.7 g/dL (3.5-5.1); Alkaline Phosphatase 93 U/L (38-126); Anion Gap 1 mmol/L (8-16); Aspartate Amino Transferase 112 U/L (17-59); Bilirubin,Total 2.2 mg/dL (0.2-1.3); Blood Urea Nitrogen 19 mg/dL (9-20); Calcium 8.1 mg/dL (8.4-10.2); Carbon Dioxide 28 mmol/L (22-30); Chloride 100 mmol/L (98-107); Estimated CRCL calculation 97 ml/min; Estimated Glomerular Filt Rate > 60; Glucose 128 mg/dL (65-110); Magnesium 1.5 mg/dL (1.6-2.3); Potassium 3.7 mmol/L (3.4-5.0); Sodium 129 mmol/L (137-145)
[2023-03-13 04:29] LABS: Anisocytosis 2+ (NORMAL); Platelet Estimate Decreased (Adequate)
[2023-03-13 04:31] LABS: Target Cells 1+ (NORMAL)
[2023-03-13 04:32] LABS: Poikilocytosis 1+ (NORMAL); Schistocytes None Seen (NORMAL)
[2023-03-13] MEDS: hydrALAZINE HCL 20 MG/ML VIAL IV PUSH (05:08)
[2023-03-13] MEDS: LEVOTHYROXINE SODIUM 112 MCG TABLET PO (05:08)
[2023-03-13] MEDS: IPRATROPIUM BR 0.02% INH SOLN 0.5 MG/2.5 ML VIAL INHALATION (05:30)
[2023-03-13] MEDS: ALBUTEROL SULFATE NEB 2.5 MG/3 ML INH INHALATION (05:30)
--- NOTE | 2023-03-13 08:10 | WPDINTPN ---
Progress Note: A&P Assessment and Plan (1) Angioedema of tongue: Code(s): T78.3XXA - Angioneurotic edema, initial encounter Status: Acute Assessment and Plan: Likely secondary to lisinopril. Clinically improved CT scan does not suggest any signs of Jay angina. WBC normal Direct laryngoscopy exam shows some edema of the arytenoid Continue Decadron as per recommendation of ENT Currently a pepcid Benadryl Discontinue lisinopril (2) Hypothyroidism (acquired): Code(s): E03.9 - Hypothyroidism, unspecified Status: Acute Assessment and Plan: TSH was check few months ago and was normal Continue levothyroxine (3) Pancytopenia: Code(s): D61.818 - Other pancytopenia Status: Acute Assessment and Plan: Chronic. Could be secondary to hepatitis-C No intervention at this time Monitor (4) Hyponatremia: Code(s): E87.1 - Hypo-osmolality and hyponatremia Status: Acute Assessment and Plan: Chronic and stable Can be secondary to a HCTZ that he is on Hold HCTZ for now as patient is receiving Lasix Monitor (5) Elevated liver enzymes: Code(s): R74.8 - Abnormal levels of other serum enzymes Status: Acute Assessment and Plan: Patient has hepatitis-C and cirrhosis and chronically elevated liver enzymes He recently saw GI in clinic He was supposed to start treatment for HCV but currently not on any. (6) Essential (primary) hypertension: Code(s): I10 - Essential (primary) hypertension Status: Acute Assessment and Plan: Discontinue lisinopril Hold HCTZ temporally due to low sodium and patient is receiving Lasix Continue norvasc P.r.n. labetalol (7) GERD (gastroesophageal reflux disease): Code(s): K21.9 - Gastro-esophageal reflux disease without esophagitis Status: Acute Assessment and Plan: Pepcid (8) COPD (chronic obstructive pulmonary disease): Code(s): J44.9 - Chronic obstructive pulmonary disease, unspecified Status: Acute Assessment and Plan: Patient appears to have COPD could not complete the PFT testing Not in exacerbation Continue bronchodilators He is also on steroids (9) Tobacco abuse: Code(s): Z72.0 - Tobacco use Status: Acute Assessment and Plan: Patient was encouraged and counseled to quit smoking (10) Lower extremity edema: Code(s): R60.0 - Localized edema Status: Acute Assessment and Plan: Likely secondary to cirrhosis versus cor pulmonale Albumin is 3.2 Check echocardiogram Lasix IV Compression stockings (11) Carotid arterial disease: Code(s): I77.9 - Disorder of arteries and arterioles, unspecified Status: Acute Assessment and Plan: CT scan of the neck suggests moderate stenosis of right internal carotid artery. Will get carotid Dopplers Plan DVT prophylaxis -SCDs Stress ulcer prophylaxis -Pepcid Nutrition -advance diet Code Status - Full Code Transfer out of ICU today Subjective Date/time seen: 03/13/23 Overnight events reviewed. Afebrile No new complaints this morning He states he feels better and his tongue swelling is down and he is able to speak eat without any difficulty. He denies any trouble with swallowing. Leg swelling is better. All other systems were reviewed and were negative Other vitals acceptable with improvement in blood pressure Review of Systems Review of Systems: All systems reviewed & are unremarkable except as noted in HPI and below (HPI) Exam Narrative: General: Pt is alert awake and in NAD Lungs/Chest: Trachea central Clear BS B/L, No crackles or wheezing. Cardiac: RRR. Normal S1 S2. No murmurs Circulation: Feet are warm Abdomen: Normal bowel sounds.. Soft. NT. ND. Extremities: No clubbing, cyanosis. Warm bilateral pitting edema is improved as compared to his : Jefferson in place Neurologic: Follows commands. Moves all 4 extremities PERRL AO x3 Skin:
[2023-03-13] MEDS: FAMOTIDINE 20 MG/2 ML VIAL IV PUSH ×2 (08:16→20:39)
[2023-03-13] MEDS: FOLIC ACID 1 MG/0.2 ML INJ IV PUSH (08:16)
[2023-03-13] MEDS: amLODIPine BESYLATE 5 MG TABLET 10 MG PO (08:16)
[2023-03-13] MEDS: MAGNESIUM OXIDE 400 MG TABLET PO (08:16)
[2023-03-13] MEDS: FUROSEMIDE INJ 40 MG/4 ML VIAL IV PUSH (08:16)
[2023-03-13] MEDS: POTASSIUM CHLORIDE 20 MEQ ER TABLET 40 MEQ PO (08:16)
[2023-03-13] MEDS: THIAMINE HCL 200 MG/2 ML VIAL 100 MG IV PUSH (08:17)
[2023-03-13] MEDS: FLUTICASONE/SALMETEROL 115-21 MCG INHALER 1 PUFF 2 PUFF INHALATION ×2 (08:25→20:15)
--- NOTE | 2023-03-13 10:41 | PM.IMPN ---
Progress Note: A&P Assessment and Plan (1) Angioedema of tongue: Code(s): T78.3XXA - Angioneurotic edema, initial encounter Status: Acute Assessment and Plan: Likely secondary to lisinopril. CT scan does not suggest any signs of Jay angina. Direct laryngoscopy exam shows some edema of the arytenoid Continue Decadron as per recommendation of ENT Discontinue lisinopril (2) Hypothyroidism (acquired): Code(s): E03.9 - Hypothyroidism, unspecified Status: Acute Assessment and Plan: TSH was checked few months ago and was normal Continue levothyroxine (3) Pancytopenia: Code(s): D61.818 - Other pancytopenia Status: Acute Assessment and Plan: Chronic. Could be secondary to hepatitis-C Monitor (4) Hyponatremia: Code(s): E87.1 - Hypo-osmolality and hyponatremia Status: Acute Assessment and Plan: Chronic and stable Can be secondary to a HCTZ that he is on Hold HCTZ for now as patient is receiving Lasix Monitor (5) Elevated liver enzymes: Code(s): R74.8 - Abnormal levels of other serum enzymes Status: Acute Assessment and Plan: Patient has hepatitis-C and cirrhosis and chronically elevated liver enzymes He recently saw GI in clinic He was supposed to start treatment for HCV but currently not on any. (6) Essential (primary) hypertension: Code(s): I10 - Essential (primary) hypertension Status: Acute Assessment and Plan: Discontinue lisinopril Hold HCTZ temporally due to low sodium and patient is receiving Lasix Continue norvasc P.r.n. labetalol (7) GERD (gastroesophageal reflux disease): Code(s): K21.9 - Gastro-esophageal reflux disease without esophagitis Status: Acute Assessment and Plan: Pepcid (8) COPD (chronic obstructive pulmonary disease): Code(s): J44.9 - Chronic obstructive pulmonary disease, unspecified Status: Acute Assessment and Plan: Patient appears to have COPD could not complete the PFT testing Not in exacerbation Continue bronchodilators He is also on steroids (9) Tobacco abuse: Code(s): Z72.0 - Tobacco use Status: Acute Assessment and Plan: Patient was encouraged and counseled to quit smoking (10) Lower extremity edema: Code(s): R60.0 - Localized edema Status: Acute Assessment and Plan: Likely secondary to cirrhosis versus cor pulmonale Albumin is 3.2 Check echocardiogram Lasix IV Compression stockings (11) Carotid arterial disease: Code(s): I77.9 - Disorder of arteries and arterioles, unspecified Status: Acute Assessment and Plan: CT scan of the neck suggests moderate stenosis of right internal carotid artery. Will get carotid Dopplers Plan Possible discharge tomorrow if stable Subjective Date/time seen: 03/13/23 10:41 Interval history: Resting comfortably Review of Systems Review of Systems: All systems reviewed & are unremarkable except as noted in HPI and below (HPI) Exam Narrative: General: Pt is alert awake and in NAD Lungs/Chest: Trachea central Clear BS B/L, No crackles or wheezing. Cardiac: RRR. Normal S1 S2. No murmurs Circulation: Feet are warm Abdomen: Normal bowel sounds.. Soft. NT. ND. Extremities: No clubbing, cyanosis. Warm bilateral pitting edema is improved as compared to his : Jefferson in place Neurologic: Follows commands. Moves all 4 extremities PERRL AO x3 Skin: Small dry sore with crusting on left big toe HEENT: Tongue swelling is significantly improved as compared to yesterday, poor dentition Objective Data Vital Signs Vital Signs: Vital Signs - 24 hr 03/12/23 12:00 03/12/23 12:00 03/12/23 12:00 Temperature 98.5 F Pulse Rate 81 81 Pulse Rate [Apical Monitor] 80 Respiratory Rate 14 Blood Pressure 188/97 H Pulse Oximetry 98 Oxygen Delivery 03/12/23 14:00 03/12/23 14:00 03/12/23 15:10 Temperature Pulse R
--- NOTE | 2023-03-13 17:43 | PC.NURSE ---
Patient transferred to room 300 at 1735. Report given to Hilda ALBA prior to transfer and all questions answered. All belongings sent with patient
--- NOTE | 2023-03-13 17:59 | PC.NURSE ---
Called pharmacy to send up all medications for patient. Patient received from ICU-9.
[2023-03-14] VITALS (9 sets, daily range): BP systolic 143–159; BP diastolic 83–85; PULSE 88–106; RESP 16–18; TEMP 36.6–37; O2SAT 98–99
[2023-03-14] MEDS: ACETAMINOPHEN 325 MG TABLET 650 MG PO (00:22)
[2023-03-14] MEDS: LEVOTHYROXINE SODIUM 112 MCG TABLET PO (05:43)
[2023-03-14 06:18] LABS: Hematocrit 30.3 % (42.0-52.0); Hemoglobin 10.1 g/dL (14.0-18.0); Mean Corpuscular HGB Conc 33.3 g/dl (32-36); Mean Corpuscular Hemoglobin 40.7 pg (26-34); Mean Corpuscular Volume 122.2 fl (80-100); Platelet Count Result 112 k/mm3 (150-375); Red Blood Count 2.48 M/mm3 (4.6-6.20); Red Cell Distribution Width 15.9 % (11.5-14.5); White Blood Count 9.5 K/mm3 (4.5-10.0)
[2023-03-14 06:33] LABS: Alanine Aminotransferase 57 U/L (6-50); Albumin Level 2.9 g/dL (3.5-5.1); Alkaline Phosphatase 110 U/L (38-126); Anion Gap 5 mmol/L (8-16); Aspartate Amino Transferase 110 U/L (17-59); Blood Urea Nitrogen 28 mg/dL (9-20); Carbon Dioxide 28 mmol/L (22-30); Chloride 98 mmol/L (98-107); Estimated CRCL calculation 77 ml/min; Estimated Glomerular Filt Rate > 60; Glucose 123 mg/dL (65-110); Magnesium 1.8 mg/dL (1.6-2.3); Potassium 4.2 mmol/L (3.4-5.0); Sodium 131 mmol/L (137-145)
[2023-03-14] MEDS: FUROSEMIDE INJ 40 MG/4 ML VIAL IV PUSH (09:31)
[2023-03-14] MEDS: FOLIC ACID 1 MG/0.2 ML INJ IV PUSH (09:31)
[2023-03-14] MEDS: THIAMINE HCL 200 MG/2 ML VIAL 100 MG IV PUSH (09:31)
[2023-03-14] MEDS: IPRATROPIUM BR 0.02% INH SOLN 0.5 MG/2.5 ML VIAL INHALATION (10:19)
[2023-03-14] MEDS: FLUTICASONE/SALMETEROL 115-21 MCG INHALER 1 PUFF 2 PUFF INHALATION ×2 (10:19→20:01)
[2023-03-14] MEDS: ALBUTEROL SULFATE NEB 2.5 MG/3 ML INH INHALATION (10:19)
[2023-03-14] MEDS: amLODIPine BESYLATE 5 MG TABLET 10 MG PO (10:34)
[2023-03-14] MEDS: FAMOTIDINE 20 MG/2 ML VIAL IV PUSH ×2 (10:34→21:27)
[2023-03-14] MEDS: hydroCHLOROthiazide 12.5 MG CAPSULE PO (10:34)
--- NOTE | 2023-03-14 10:38 | PM.IMPN ---
Progress Note: A&P Assessment and Plan (1) Angioedema of tongue: Code(s): T78.3XXA - Angioneurotic edema, initial encounter Status: Acute Assessment and Plan: Likely secondary to lisinopril. CT scan does not suggest any signs of Jay angina. Direct laryngoscopy exam shows some edema of the arytenoid Continue Decadron as per recommendation of ENT Discontinue lisinopril (2) Hypothyroidism (acquired): Code(s): E03.9 - Hypothyroidism, unspecified Status: Acute Assessment and Plan: TSH was checked few months ago and was normal Continue levothyroxine (3) Pancytopenia: Code(s): D61.818 - Other pancytopenia Status: Acute Assessment and Plan: Chronic. Could be secondary to hepatitis-C Monitor (4) Hyponatremia: Code(s): E87.1 - Hypo-osmolality and hyponatremia Status: Acute Assessment and Plan: Chronic and stable Can be secondary to a HCTZ that he is on Hold HCTZ for now as patient is receiving Lasix Monitor (5) Elevated liver enzymes: Code(s): R74.8 - Abnormal levels of other serum enzymes Status: Acute Assessment and Plan: Patient has hepatitis-C and cirrhosis and chronically elevated liver enzymes He recently saw GI in clinic He was supposed to start treatment for HCV but currently not on any. (6) Essential (primary) hypertension: Code(s): I10 - Essential (primary) hypertension Status: Acute Assessment and Plan: Discontinue lisinopril Hold HCTZ temporally due to low sodium and patient is receiving Lasix Continue norvasc P.r.n. labetalol (7) GERD (gastroesophageal reflux disease): Code(s): K21.9 - Gastro-esophageal reflux disease without esophagitis Status: Acute Assessment and Plan: Pepcid (8) COPD (chronic obstructive pulmonary disease): Code(s): J44.9 - Chronic obstructive pulmonary disease, unspecified Status: Acute Assessment and Plan: Patient appears to have COPD could not complete the PFT testing Not in exacerbation Continue bronchodilators He is also on steroids (9) Tobacco abuse: Code(s): Z72.0 - Tobacco use Status: Acute Assessment and Plan: Patient was encouraged and counseled to quit smoking (10) Lower extremity edema: Code(s): R60.0 - Localized edema Status: Acute Assessment and Plan: Likely secondary to cirrhosis versus cor pulmonale Albumin is 3.2 Check echocardiogram Lasix IV Compression stockings (11) Carotid arterial disease: Code(s): I77.9 - Disorder of arteries and arterioles, unspecified Status: Acute Assessment and Plan: CT scan of the neck suggests moderate stenosis of right internal carotid artery. Will get carotid Dopplers Plan Possible discharge tomorrow if stable Subjective Date/time seen: 03/14/23 10:38 Interval history: I saw on exam patient today, patient denies dyspnea,, and tougue is swollen and the swelling is improving, Exam Narrative: GENERAL: Pleasant, in no acute distress. Well-nourished. - EYES: EOMI. Anicteric. - HENT: Moist mucous membranes. Tongue is swelling, no airway obstruction - LUNGS: Clear to auscultation bilaterally, no wheezing, rhonchi, or rales. - CARDIOVASCULAR: Regular rate and rhythm. No murmur. No JVD. - ABDOMEN: Soft, non-tender and non-distended. No palpable masses. - EXTREMITIES: No edema. Peripheral pulses 2+. Non-tender. - NEUROLOGIC: No focal neurological deficits. CN II-XII grossly intact. - PSYCHIATRIC: Awake, Alert and oriented x 3. Appropriate mood and affect. - SKIN: No rashes or lesions. Warm. - LYMPH: No cervical lymphadenopathy. Objective Data Vital Signs Vital Signs: Vital Signs - 24 hr 03/13/23 11:28 03/13/23 11:28 03/13/23 15:17 Temperature 98.3 F Pulse Rate 98 Pulse Rate [Apical Monitor] 98 98 Respiratory Rate 12 Blood Pressure 133/77 132/77 Pulse Oximetry 97 Oxygen Delivery
[2023-03-14] MEDS: SODIUM CHLORIDE 1 GM TABLET 2 GM PO (17:25)
[2023-03-15] VITALS: PULSE 88
[2023-03-15 06:00] VITALS: BP 149/82; PULSE 100; RESP 16; TEMP 37; O2SAT 99
[2023-03-15 07:16] LABS: Hematocrit 31.5 % (42.0-52.0); Hemoglobin 10.5 g/dL (14.0-18.0); Mean Corpuscular HGB Conc 33.3 g/dl (32-36); Mean Corpuscular Hemoglobin 40.1 pg (26-34); Mean Corpuscular Volume 120.2 fl (80-100); Mean Platelet Volume 9.8 fl (7.4-10.4); Platelet Count Result 93 k/mm3 (150-375); Red Blood Count 2.62 M/mm3 (4.6-6.20); Red Cell Distribution Width 15.4 % (11.5-14.5); White Blood Count 6.3 K/mm3 (4.5-10.0)
--- NOTE | 2023-03-15 07:34 | PM.IMPN ---
Progress Note: A&P Assessment and Plan (1) Angioedema of tongue: Code(s): T78.3XXA - Angioneurotic edema, initial encounter Status: Acute (2) Hypothyroidism (acquired): Code(s): E03.9 - Hypothyroidism, unspecified Status: Acute (3) Pancytopenia: Code(s): D61.818 - Other pancytopenia Status: Acute (4) Hyponatremia: Code(s): E87.1 - Hypo-osmolality and hyponatremia Status: Acute (5) Elevated liver enzymes: Code(s): R74.8 - Abnormal levels of other serum enzymes Status: Acute (6) Essential (primary) hypertension: Code(s): I10 - Essential (primary) hypertension Status: Acute (7) GERD (gastroesophageal reflux disease): Code(s): K21.9 - Gastro-esophageal reflux disease without esophagitis Status: Acute (8) COPD (chronic obstructive pulmonary disease): Code(s): J44.9 - Chronic obstructive pulmonary disease, unspecified Status: Acute (9) Tobacco abuse: Code(s): Z72.0 - Tobacco use Status: Acute (10) Lower extremity edema: Code(s): R60.0 - Localized edema Status: Acute (11) Carotid arterial disease: Code(s): I77.9 - Disorder of arteries and arterioles, unspecified Status: Acute Plan (1) Angioedema of tongue: ?Code(s): T78.3XXA - Angioneurotic edema, initial encounter ?Status:?Acute ?Assessment and Plan: Likely secondary to lisinopril. CT scan does not suggest any signs of Jay angina. Direct laryngoscopy exam shows some edema of the arytenoid Received decadron as per recommendation of ENT Discontinue lisinopril Change to prednisone 20 mg daily for 4 more days at discharge, also added loratadine 10 mg daily p.o., Pepcid 20 mg b.i.d. p.o. (2) Hypothyroidism (acquired): ?Code(s): E03.9 - Hypothyroidism, unspecified ?Status:?Acute ?Assessment and Plan: TSH was checked few months ago and was normal Continue levothyroxine (3) Pancytopenia: ?Code(s): D61.818 - Other pancytopenia ?Status:?Acute ?Assessment and Plan: Chronic.? Could be secondary to hepatitis-C Monitor (4) Hyponatremia: ?Code(s): E87.1 - Hypo-osmolality and hyponatremia ?Status:?Acute ?Assessment and Plan: Chronic and stable Can be secondary to a HCTZ that he is on Hold HCTZ Follow-up with primary care doctor (5) Elevated liver enzymes: ?Code(s): R74.8 - Abnormal levels of other serum enzymes ?Status:?Acute ?Assessment and Plan: Patient has hepatitis-C and cirrhosis and chronically elevated liver enzymes He recently saw GI in clinic He was supposed to start treatment for HCV but currently not on any. (6) Essential (primary) hypertension: ?Code(s): I10 - Essential (primary) hypertension ?Status:?Acute ?Assessment and Plan: Discontinue lisinopril Hold HCTZ temporally due to low sodium Continue norvasc 10 mg p.o. daily at discharge (7) GERD (gastroesophageal reflux disease): ?Code(s): K21.9 - Gastro-esophageal reflux disease without esophagitis ?Status:?Acute ?Assessment and Plan: Pepcid (8) COPD (chronic obstructive pulmonary disease): ?Code(s): J44.9 - Chronic obstructive pulmonary disease, unspecified ?Status:?Acute ?Assessment and Plan: Patient appears to have COPD could not complete the PFT testing Not in exacerbation Continue bronchodilators He is also on steroids (9) Tobacco abuse: ?Code(s): Z72.0 - Tobacco use ?Status:?Acute ?Assessment and Plan: Patient was encouraged and counseled to quit smoking (10) Lower extremity edema: ?Code(s): R60.0 - Localized edema ?Status:?Acute ?Assessment and Plan: Likely secondary to cirrhosis versus cor pulmonale Albumin is 3.2 Check echocardiogram ? 1. Complete two-dimensional, color flow and Doppler transthoracic echocardiogram is performed. ? 2. Left ventricular chamber dimension is normal. ? 3. Left ventricul
[2023-03-15 08:04] VITALS: O2SAT 98
[2023-03-15] MEDS: amLODIPine BESYLATE 5 MG TABLET 10 MG PO (09:41)
[2023-03-15] MEDS: SODIUM CHLORIDE 1 GM TABLET 2 GM PO (09:42)
[2023-03-15] MEDS: hydroCHLOROthiazide 12.5 MG CAPSULE PO (09:42)
[2023-03-15] MEDS: THIAMINE HCL 200 MG/2 ML VIAL 100 MG IV PUSH (09:43)
[2023-03-15] MEDS: FUROSEMIDE INJ 40 MG/4 ML VIAL IV PUSH (09:43)
[2023-03-15] MEDS: FAMOTIDINE 20 MG/2 ML VIAL IV PUSH (09:46)
[2023-03-15] MEDS: FOLIC ACID 1 MG/0.2 ML INJ IV PUSH (09:48)
--- NOTE | 2023-03-15 10:12 | PM.DS ---
DS: Admitting Diagnosis Discharge Date Today Admitting Diagnosis (1) Angioedema of tongue: ?Code(s): T78.3XXA - Angioneurotic edema, initial encounter ?Status:?Acute (2) Hypothyroidism (acquired): ?Code(s): E03.9 - Hypothyroidism, unspecified ?Status:?Acute (3) Pancytopenia: ?Code(s): D61.818 - Other pancytopenia ?Status:?Acute (4) Hyponatremia: ?Code(s): E87.1 - Hypo-osmolality and hyponatremia ?Status:?Acute (5) Elevated liver enzymes: ?Code(s): R74.8 - Abnormal levels of other serum enzymes ?Status:?Acute (6) Essential (primary) hypertension: ?Code(s): I10 - Essential (primary) hypertension ?Status:?Acute (7) GERD (gastroesophageal reflux disease): ?Code(s): K21.9 - Gastro-esophageal reflux disease without esophagitis ?Status:?Acute (8) COPD (chronic obstructive pulmonary disease): ?Code(s): J44.9 - Chronic obstructive pulmonary disease, unspecified ?Status:?Acute (9) Tobacco abuse: ?Code(s): Z72.0 - Tobacco use ?Status:?Acute (10) Lower extremity edema: ?Code(s): R60.0 - Localized edema ?Status:?Acute (11) Carotid arterial disease: ?Code(s): I77.9 - Disorder of arteries and arterioles, unspecified ?Status:?Acute DS: Discharge Diagnosis Discharge Diagnosis (1) Angioedema of tongue: Code(s): T78.3XXA - Angioneurotic edema, initial encounter Status: Acute (2) Hypothyroidism (acquired): Code(s): E03.9 - Hypothyroidism, unspecified Status: Acute (3) Pancytopenia: Code(s): D61.818 - Other pancytopenia Status: Acute (4) Hyponatremia: Code(s): E87.1 - Hypo-osmolality and hyponatremia Status: Acute (5) Elevated liver enzymes: Code(s): R74.8 - Abnormal levels of other serum enzymes Status: Acute (6) Essential (primary) hypertension: Code(s): I10 - Essential (primary) hypertension Status: Acute (7) GERD (gastroesophageal reflux disease): Code(s): K21.9 - Gastro-esophageal reflux disease without esophagitis Status: Acute (8) COPD (chronic obstructive pulmonary disease): Code(s): J44.9 - Chronic obstructive pulmonary disease, unspecified Status: Acute (9) Tobacco abuse: Code(s): Z72.0 - Tobacco use Status: Acute (10) Lower extremity edema: Code(s): R60.0 - Localized edema Status: Acute (11) Carotid arterial disease: Code(s): I77.9 - Disorder of arteries and arterioles, unspecified Status: Acute Plan (1) Angioedema of tongue: ?Code(s): T78.3XXA - Angioneurotic edema, initial encounter ?Status:?Acute ?Assessment and Plan: Likely secondary to lisinopril. CT scan does not suggest any signs of Jay angina. Direct laryngoscopy exam shows some edema of the arytenoid Received decadron as per recommendation of ENT Discontinue lisinopril Change to prednisone 20 mg daily for 4 more days at discharge, also added loratadine 10 mg daily p.o., Pepcid 20 mg b.i.d. p.o. (2) Hypothyroidism (acquired): ?Code(s): E03.9 - Hypothyroidism, unspecified ?Status:?Acute ?Assessment and Plan: TSH was checked few months ago and was normal Continue levothyroxine (3) Pancytopenia: ?Code(s): D61.818 - Other pancytopenia ?Status:?Acute ?Assessment and Plan: Chronic.? Could be secondary to hepatitis-C Monitor (4) Hyponatremia: ?Code(s): E87.1 - Hypo-osmolality and hyponatremia ?Status:?Acute ?Assessment and Plan: Chronic and stable Can be secondary to a HCTZ that he is on Hold HCTZ Follow-up with primary care doctor (5) Elevated liver enzymes: ?Code(s): R74.8 - Abnormal levels of other serum enzymes ?Status:?Acute ?Assessment and Plan: Patient has hepatitis-C and cirrhosis and chronically elevated liver enzymes He recently saw GI in clinic He was supposed to start treatment for HCV but currentl
[2023-03-15 12:03] LABS: Alanine Aminotransferase 77 U/L (6-50); Albumin Level 3.5 g/dL (3.5-5.1); Alkaline Phosphatase 96 U/L (38-126); Anion Gap 10 mmol/L (8-16); Aspartate Amino Transferase 129 U/L (17-59); Bilirubin,Total 3.1 mg/dL (0.2-1.3); Blood Urea Nitrogen 24 mg/dL (9-20); Calcium 8.4 mg/dL (8.4-10.2); Carbon Dioxide 24 mmol/L (22-30); Chloride 94 mmol/L (98-107); Estimated CRCL calculation 97 ml/min; Estimated Glomerular Filt Rate > 60; Glucose 134 mg/dL (65-110); Magnesium 1.9 mg/dL (1.6-2.3); Potassium 3.9 mmol/L (3.4-5.0); Sodium 128 mmol/L (137-145)
--- NOTE | 2023-03-15 12:08 | PCCCNOTE ---
On 03/15/23, the student, [Marivel Pacheco ], provided care and completed [facility] documentation on this patient. I have reviewed the student's documentation and agree with the findings.
== END 2023-03-15 11:20 | disposition home or self-care (01) | DRG 811 ==
LOC: ANHED 07:56 → ANHICU 08:30 → ANH3MEDSUR 03-13 17:35
PROVIDERS: Internal Medicine; Admitting Provider Chiropractor; Emergency Provider Preventive Medicine Aerospace Medicine; PCP Family Medicine; Visit Provider Hospitalist
DX: T78.3XXA Angioneurotic edema, initial encounter (principal); D61.818 Other pancytopenia; K74.69 Other cirrhosis of liver; E87.1 Hypo-osmolality and hyponatremia; I65.23 Occlusion and stenosis of bilateral carotid arteries; T46.4X5A Adverse effect of angiotensin-converting-enzyme inhibitors, initial encounter; B18.2 Chronic viral hepatitis C; E03.9 Hypothyroidism, unspecified; T50.2X5A Adverse effect of carbonic-anhydrase inhibitors, benzothiadiazides and other diuretics, initial encounter; I10 Essential (primary) hypertension; K21.9 Gastro-esophageal reflux disease without esophagitis; M19.90 Unspecified osteoarthritis, unspecified site; F17.210 Nicotine dependence, cigarettes, uncomplicated; J44.9 Chronic obstructive pulmonary disease, unspecified
CPT/HCPCS: 36415; 70491; 80053; 82140; 83735; 83880; 85025; 85027; 85055; 85610; 87040; 93306; 93880; 94640; 96365; 96375; 99285; A9270; G0378; J0295; J0360; J1100; J1940; J2250; J3010; J3411; J7120; Q9967

== ENCOUNTER 2023-04-09 14:54 | Inpatient (IN) | payer OTHER, SELFPAY ==
[2023-04-09] VITALS (27 sets, daily range): BP systolic 153–160; BP diastolic 67–82; PULSE 82–102; RESP 11–22; TEMP 36.1–36.2; O2SAT 95–100; BMI 28.0
--- NOTE | ~2023-04-09 | XR_ITS ---
EXAMINATION: XR chest 1V portable INDICATION: Fluid overload and body aches TECHNIQUE: Portable AP chest at 1605 hours COMPARISON: 08/08/2018 FINDINGS: Cardiomegaly is noted. There is mild diffuse interstitial pattern. No pleural effusion or p neumothorax. IMPRESSION: 1. Cardiomegaly with mild pulmonary edema. Reviewed, dictated and finalized at location L.
--- NOTE | ~2023-04-09 | CT_ITS ---
EXAMINATION: CT abdomen pelvis w con DATE: 04/09/2023 17:36 INDICATION: ascites, rule out peritonitis TECHNIQUE: Computed tomography (CT) of the abdomen and pelvis was performed with 100 mL Omnipaque-350 intravenous contrast. Automated exposure control and iterative reconstruction technique were employe d. The dose-length product was 897.37 mGy-cm. COMPARISON: None. FINDINGS: Lower thorax: Coronary artery calcification. Bilateral dependent atelectasis. Small bilateral pleural effusions, larger on the right. Liver: Cirrhosis. Biliary/Gallbladder: Marked gallbladder wall thickening. No bile duct dilation. Pancreas: No mass or duct dilation. Spleen: Normal. Adrenals:No mass. Kidneys: Bilateral medullary nephrocalcinosis. No suspicious mass. No obstructing calcification. No h ydronephrosis. GI tract: Small hiatal hernia. Moderate distal esophageal and gastric wall edema. No small or large b owel dilation. Normal appendix. Wall edema in the right colon. Mesentery/Peritoneum: Small volume ascites. Mesenteric lymphadenopathy. Upper abdominal varices. Retroperitoneum: No mass. Atherosclerotic abdominal aortic and/or arterial calcifications. Pelvis: Moderate bladder wall thickening in a partially distended urinary bladder. Soft Tissues: Fluid in the bilateral inguinal canals. Diffuse subcutaneous edema. Bones: No acute osseous finding. IMPRESSION: Small bilateral pleural effusions. Moderate esophagitis/gastritis. Cirrhosis with portal hypertension. Marked gallbladder wall thickening, a nonspecific finding in the setting of chronic liver disease. Mesenteric lymphadenopathy. Small volume ascites. No peritoneal thickening or enhancement to suggest peritonitis. Right colonic wall edema likely secondary to portal hypertension, noting that infection and ischemia could appear similarly. Cystitis versus bladder wall thickening from chronic outlet obstruction. Reviewed, dictated and finalized at location K. IMPRESSION: Small bilateral pleural effusions. Moderate esophagitis/gastritis. Cirrhosis with portal hypertension. Marked gallbladder wall thickening, a nonspecific finding in the setting of chr onic liver disease. Mesenteric lymphadenopathy. Small volume ascites. No peritoneal thickening or enhancement to suggest perito nitis. Right colonic wall edema likely secondary to portal hypertension, noting that i nfection and ischemia could appear similarly. Cystitis versus bladder wall thickening from chronic outlet obstruction.
--- NOTE | ~2023-04-09 | US_ITS ---
EXAMINATION: US venous doppler [facility] DATE: 04/09/2023 16:00 INDICATION: Bilateral lower limb pain and swelling TECHNIQUE: Grayscale ultrasound images without and with compression and Doppler ultrasound images of the bilateral lower extremity veins were obtained. COMPARISON: None. FINDINGS: The visualized portions of right common femoral vein, profunda (deep) femoral vein, femoral vein, pop liteal vein, posterior tibial veins, peroneal veins, gastrocnemius vein and greater saphenous vein ou tflow are patent. The visualized portions of left common femoral vein, profunda femoral vein, femoral vein, popliteal v ein, gastrocnemius vein and greater saphenous vein outflow are patent. The left posterior tibial and peroneal veins were unable to be identified. IMPRESSION: 1. No deep venous thrombosis in either lower limb. Reviewed, dictated and finalized at location A.
[2023-04-09 15:47] LABS: Basophils Absolute Auto 0.1 K/mm3 (0.0-0.1); Eosinophils Absolute Auto 0.2 K/mm3 (0-0.3); Eosinophils Percent Auto 3.3 % (0-4.4); Hematocrit 22.2 % (42.0-52.0); Hemoglobin 7.4 g/dL (14.0-18.0); Immature Granulocyte Absolute 0.11 K/mm3 (0.00-0.031); Immature Granulocyte Percent A 2.2 % (0-0.5); Lymphocytes Absolute Auto 0.72 K/mm3 (0.9-3.2); Lymphocytes Percent Auto 14.2 % (18.3-44.2); Mean Corpuscular HGB Conc 33.3 g/dl (32-36); Mean Corpuscular Hemoglobin 39.4 pg (26-34); Mean Corpuscular Volume 118.1 fl (80-100); Mean Platelet Volume 9.6 fl (7.4-10.4); Monocytes Absolute Auto 0.7 K/mm3 (0.1-0.6); Monocytes Percent Auto 13.2 % (2.6-8.5); Neutrophils Absolute Auto 3.4 K/mm3 (1.3-6.7); Neutrophils Percent Auto 66.1 % (45.5-73.1); Platelet Count Result 122 k/mm3 (150-375); Red Blood Count 1.88 M/mm3 (4.6-6.20); Red Cell Distribution Width 17.3 % (11.5-14.5); White Blood Count 5.1 K/mm3 (4.5-10.0)
--- NOTE | 2023-04-09 15:50 | ED.GENADULT ---
HPI - General Adult General Chief complaint: Extremity Problem,Nontraumatic <Gavin Rocha PA-C - Last Filed: 04/09/23 19:24> Stated complaint: edema <Gavin Rocha PA-C - Last Filed: 04/09/23 19:24> Time Seen by Provider: 04/09/23 15:09 <Gavin Rocha PA-C - Last Filed: 04/09/23 19:24> Source: patient <Gavin Rocha PA-C - Last Filed: 04/09/23 19:24> Mode of arrival: ambulatory <Gavin Rocha PA-C - Last Filed: 04/09/23 19:24> Limitations: no limitations <JUAN ANTONIO Denise Last Filed: 04/09/23 19:24> History of Present Illness HPI narrative: This is a 62-year-old male with PMH cirrhosis, chronic hep C, HTN, gastritis who presents to the ED with chief complaint of bilateral lower extremity edema. He was referred from the urgent care today. Patient reports that over the last several days he has had increased swelling of his lower legs and thighs as well as his abdomen. He associates his shortness of breath with all of the swelling. Denies chest pain. He also endorses abdominal pain diffusely throughout the abdomen. Denies any GI bleeding symptoms or other bleeding symptoms. Denies fevers, chills, <Gavin Rocha PA-C - Last Filed: 04/09/23 19:24> Related Data Home medications: Home Medications Medication Instructions Recorded Confirmed furosemide 40 mg tablet (Lasix) 40 mg PO DAILY 04/09/23 04/09/23 spironolactone 25 mg tablet 25 mg PO DAILY 04/09/23 04/09/23 <JUAN ANTONIO Denise Last Filed: 04/09/23 19:24> Allergies/adverse reactions: Allergies Allergy/AdvReac Type Severity Reaction Status Date / Time lisinopril Allergy Severe Swelling Verified 04/09/23 14:06 of Lip/Tongue/Throat <JUAN ANTONIO Denise Last Filed: 04/09/23 19:24> Review of Systems Review of Systems: All systems as dictated in HPI <Gavin Rocha PA-C - Last Filed: 04/09/23 19:24> FORMERLY [facility], [facility] Past Medical History Medical History: Medical History Adenomatous colon polyp Alcohol abuse Arthritis Asthma Chronic hepatitis C with cirrhosis Encounter for screening colonoscopy Essential (primary) hypertension Gastritis GERD (gastroesophageal reflux disease) History of vitreous hemorrhage of left eye 08/2018 Hypothyroidism (acquired) Thrombocytopenia Tobacco abuse <Gavin Rocha PA-C - Last Filed: 04/09/23 19:24> Surgical History Surgical History: Surgical History H/O colonoscopy with polypectomy History of tonsillectomy and adenoidectomy History of vitrectomy (~08/2018) 08/2018 - Left <Gavin Rocha PA-C - Last Filed: 04/09/23 19:24> Family History Family History: Family History Sibling Hypertension Sibling Cerebrovascular accident Acute myocardial infarction Mother Asthma Father Cerebrovascular accident Dementia Alcohol abuse <Gavin Rocha PA-C - Last Filed: 04/09/23 19:24> Social History Social History: Social History Social History: He lives with his sister. He stated that he had 2 sons. He smokes a pack a cigarettes a day. He drinks 5-6 beers a day. He is . Code status full code Smoking packs per day: 0.5 Smoking cigarettes per day: 10.0 Years smoked: 30 Smoking pack-years: 15.00 Smoking status: Current every day smoker Tobacco type: cigarettes Alcohol intake: current Drinks per week: 35 Alcohol use details: beer Substance use: current Substance use type: marijuana Other substance usage details: occasionally Lack of Transportation: No Lack of Food: Never True Current Housing: I Have Housing Concerned About Future Housing: No Difficulty Paying Gas/Electric Bills: No Difficulty Paying for Meds: No Currently Unemployed: No Education: [employer]
[2023-04-09 15:54] LABS: Appearance Urine Clear (Clear); Bacteria Urine None Seen /hpf; Bilirubin Urine Negative (Negative); Blood Urine Negative (Negative); Color Urine Yellow (Yellow); Glucose Urine UA Negative (Negative); Ketones Urine Negative (Negative); Leukocyte Esterase Ur Trace LEU/UL (Negative); Nitrate Urine Negative (Negative); Non Pathogenic Casts 0-2; Protein Urine Negative (Negative); RBC Urine 0-2 /hpf (0-2); Specific Grav Ur 1.011 (1.001-1.035); Squamous Epithelial Cell Urine None seen /hpf (Few)
[2023-04-09 15:56] LABS: Add Urine Microscopic? YES
[2023-04-09 15:59] LABS: INR 1.3; Prothrombin Time 16.7 Seconds (11.1-14.7)
[2023-04-09 16:00] LABS: Partial Thromboplastin Time 35.5 SECONDS (22.3-36.8)
[2023-04-09 16:02] LABS: Ammonia < 9 umol/L (9-30)
[2023-04-09 16:09] LABS: NT Pro B Type Natriuretic Pept 496 pg/mL (19.9-100); Platelet Estimate Decreased (Adequate); Schistocytes None Seen (NORMAL)
[2023-04-09 16:10] LABS: Anisocytosis 2+ (NORMAL); Macrocytosis 1+ (NORMAL)
[2023-04-09 17:19] LABS: Alanine Aminotransferase 45 U/L (6-50); Albumin Level 2.7 g/dL (3.5-5.1); Alkaline Phosphatase 141 U/L (38-126); Anion Gap 4 mmol/L (8-16); Aspartate Amino Transferase 93 U/L (17-59); Bilirubin,Total 2.9 mg/dL (0.2-1.3); Blood Urea Nitrogen 28 mg/dL (9-20); Calcium 7.3 mg/dL (8.4-10.2); Carbon Dioxide 26 mmol/L (22-30); Chloride 87 mmol/L (98-107); Estimated CRCL calculation 54 ml/min; Estimated Glomerular Filt Rate 56; Glucose 77 mg/dL (65-110); Potassium 4.8 mmol/L (3.4-5.0); Sodium 117 mmol/L (137-145)
[2023-04-09 18:13] LABS: Lactic Acid Reflex 1.3 mmol/L (0.7-2.0)
[2023-04-09] MEDS: FUROSEMIDE INJ 40 MG/4 ML VIAL IV PUSH (18:30)
[2023-04-09] MEDS: metroNIDAZOLE 500 MG/ISO 100ML 500 MG/100 ML BAG 100 MG (18:30)
[2023-04-09] MEDS: MORPHINE SULFATE (*CRX) 4 MG/ML INJ IV PUSH (19:27)
[2023-04-09] MEDS: ONDANSETRON INJ 4 MG/2 ML VIAL IV PUSH (19:27)
--- NOTE | 2023-04-09 19:34 | PC.NURSE ---
This RN assumed care of patient. This RN took patient report from ANJALI Byrne.
[2023-04-09 19:56] LABS: Hematocrit 22.7 % (42.0-52.0); Hemoglobin 7.7 g/dL (14.0-18.0)
[2023-04-09 20:18] LABS: Anion Gap 3 mmol/L (8-16); Blood Urea Nitrogen 27 mg/dL (9-20); Calcium 7.6 mg/dL (8.4-10.2); Carbon Dioxide 28 mmol/L (22-30); Chloride 88 mmol/L (98-107); Estimated CRCL calculation 59 ml/min; Estimated Glomerular Filt Rate > 60; Glucose 79 mg/dL (65-110); Magnesium 1.5 mg/dL (1.6-2.3); Potassium 4.7 mmol/L (3.4-5.0); Sodium 119 mmol/L (137-145)
--- NOTE | 2023-04-09 21:25 | ADMGEN ---
This patient, Francesco Fox, was admitted to IMU Room 207-01. Patient/family oriented to hospital policies and general routines including ID bracelet, bed and alarms, visiting hours, pain management, procedures, bathroom and other care routines, personal items, smoking policy, room service/diet, and visiting hours. Information on how to activate the Rapid Response Team has been discussed. Patient/Family are encouraged to report perceived risks to care and to ask questions if they do not understand what they are told or what they should do.
--- NOTE | 2023-04-09 21:51 | PM.IMHP ---
H&P: HPI History of Present Illness Date/Time: 04/09/23 20:15 Chief Complaint: Swelling. Narrative: This is a 62-year-old male with chronic hepatitis C with cirrhosis, hypertension, chronic anemia, hypothyroidism, and GERD who presented to the emergency department from his doctor's office for evaluation of increased swelling. The patient provides the following history. He reports gaining 30 lb within a week with significant distention of his abdomen which is unusual for him. He complains of some shortness of breath and early satiety which he blames on the abdominal swelling. He has generalized discomfort throughout the abdomen which he has difficulties describing. It is worse with jarring movement and palpation. He is on furosemide and spironolactone at home of which he states compliance. He drinks several glasses of water a day but does not think that he is over hydrated. He drinks beer most days of the week, ranging anywhere from 2 to 6 beers a day though I suspect it may be more. He has some shakes on exam and he does mention that he will have tremors if it has been a day or so since he last had a drink. He denies fever, chills, sweats, cold and flu symptoms, chest pain, pleuritic pain, palpitations, vomiting, diarrhea, and dysuria. His labs were significant for a WBC count of 5.1, hemoglobin and hematocrit of 7.4 and 22% respectively (a 3 g decrease in hemoglobin compared to labs drawn last month) platelet 122, sodium 117, chloride 87, BUN 28, creatinine 1.30, total bilirubin 2.9, AST 93, ALT 45, alkaline phosphatase 141, albumin 2.7, PT 16.7, INR 1.3. CT of the abdomen and pelvis showed small bilateral pleural effusions, moderate esophagitis/gastritis, cirrhosis with portal hypertension, marked gallbladder wall thickening which is a nonspecific finding in the setting of chronic liver disease, mesenteric lymphadenopathy, small volume ascites, and right colonic wall edema likely due to portal hypertension. He received a dose of IV Lasix in the ED with good urine output. Repeat sodium level has increased to 119. He is being admitted in this setting for further diuresis and close monitoring. Review of Systems Review of Systems: Twelve systems were reviewed. No fever, chills, or sweats. No recent cold or flu symptoms. No history of alcohol withdrawal seizures or delirium tremens. Except as documented, all other systems were reviewed and are negative. [facility]LY [facility] Past Medical History Medical History (Updated 04/09/23 @ 23:18 by Caitlin Wren PA-C) Acute on chronic diastolic heart failure Adenomatous colon polyp Alcohol abuse Arthritis Asthma Carotid arterial disease Chronic hepatitis C with cirrhosis Chronic hyponatremia Encounter for screening colonoscopy Essential (primary) hypertension Gastritis Gastroesophageal reflux disease History of vitreous hemorrhage of left eye 08/2018 Hypothyroidism (acquired) Thrombocytopenia Tobacco abuse Surgical History Surgical History (Updated 04/09/23 @ 23:12 by Caitlin Wren PA-C) History of colonoscopy with polypectomy History of tonsillectomy and adenoidectomy History of vitrectomy (~08/2018) 08/2018 - Left Family History Family History Sibling Hypertension Sibling Cerebrovascular accident Acute myocardial infarction Mother Asthma Father Cerebrovascular accident Dementia Alcohol abuse Social History Social History (Updated 04/09/23 @ 23:13 by Caitlin Wren PA-C) Social History: Surrogate medical decision maker: Eliza Watson, and sister. Code status: Full code. Smoking packs per day: 0.5 Smoking cigarettes per day: 10.0 Years smoked: 30 Smoking pack-years: 15.00 Smoking status: Current every day smoker Tobacco type: cigarettes Alcohol intake: current Drinks per week: 35 Alcohol use details: beer Substance use: current Substance use type: marijuana Other substance usage details
[2023-04-10] VITALS (14 sets, daily range): BP systolic 130–179; BP diastolic 67–89; PULSE 87–102; RESP 16–20; TEMP 36–36.9; O2SAT 98–100
[2023-04-10] MEDS: MAGNESIUM SULF 1 GM/D5W 100 ML 1 GM/100 ML BAG IVPB (00:49)
[2023-04-10] MEDS: chlordiazePOXIDE (*CRX) 10 MG CAPSULE PO ×2 (00:49→05:31)
[2023-04-10 01:09] LABS: Sodium 118 mmol/L (137-145)
--- NOTE | 2023-04-10 01:45 | PM.IMPN ---
Subjective Date/time seen: 04/10/23 01:45 Interval history: I am stopping lasix 40 mg IV bid in this pt until his sodium improves. I am starting hypertonic saline 3% at 15ml/hr through the peripheral line until the sodium improves above 127 meq by 04/10 @1539. Stop hypertonic saline if pt's Na goes above 127. After that time, NS can be used as it has 150 meq of Na, with a new goal of 137 or at least 130-135. He will likely have chronic hyponatremia. Objective Data Vital Signs Vital Signs: Vital Signs - 24 hr 04/09/23 15:00 04/09/23 15:10 04/09/23 15:11 Temperature 97.1 F L Pulse Rate 85 88 86 Respiratory Rate 20 14 15 Blood Pressure 153/67 H 160/82 H Pulse Oximetry 100 100 100 Oxygen Delivery Room Air 04/09/23 15:16 04/09/23 15:17 04/09/23 15:30 Temperature Pulse Rate 83 84 84 Respiratory Rate 15 22 H 18 Blood Pressure 160/80 H Pulse Oximetry 100 100 100 Oxygen Delivery 04/09/23 16:08 04/09/23 16:15 04/09/23 16:33 Temperature Pulse Rate 85 86 Respiratory Rate 13 11 L Blood Pressure Pulse Oximetry 100 99 100 Oxygen Delivery 04/09/23 16:45 04/09/23 17:00 04/09/23 17:40 Temperature Pulse Rate Respiratory Rate Blood Pressure Pulse Oximetry 99 100 100 Oxygen Delivery 04/09/23 17:47 04/09/23 18:00 04/09/23 18:18 Temperature Pulse Rate Respiratory Rate Blood Pressure Pulse Oximetry 100 99 100 Oxygen Delivery 04/09/23 18:37 04/09/23 18:45 04/09/23 19:00 Temperature Pulse Rate Respiratory Rate Blood Pressure Pulse Oximetry 100 100 99 Oxygen Delivery 04/09/23 19:15 04/09/23 19:33 04/09/23 19:45 Temperature Pulse Rate Respiratory Rate Blood Pressure Pulse Oximetry 99 100 95 Oxygen Delivery 04/09/23 20:01 04/09/23 20:15 04/09/23 21:04 Temperature Pulse Rate Respiratory Rate Blood Pressure Pulse Oximetry 97 100 100 Oxygen Delivery 04/09/23 21:15 04/09/23 21:25 04/09/23 22:47 Temperature 97.0 F L Pulse Rate 82 102 H Respiratory Rate 18 20 Blood Pressure 160/80 H 153/78 H Pulse Oximetry 99 100 Oxygen Delivery Room Air 04/09/23 22:00 04/10/23 00:00 Temperature 97.0 F L Pulse Rate 96 98 Respiratory Rate 20 Blood Pressure 154/81 H Pulse Oximetry 98 Oxygen Delivery Intake/Output Intake/Output: Intake & Output 04/07/23 04/08/23 04/09/23 04/10/23 23:59 23:59 23:59 23:59 Intake Total 150 Balance 150 Meds/Results Medications: Active Medications Generic Name Dose Route Start Last Admin Trade Name Freq PRN Reason Stop Dose Admin Amlodipine Besylate 10 mg 04/10/23 09:00 Aml[facility]ipine Besylate 5 [facility] Chlordiazepoxide HCl 10 mg 04/09/23 23:25 04/10/23 00:49 Chlordiazepoxide (*Crx) 10 Mg Capsule PO 10 mg Q8HR [facility] Administration Folic Acid 1 mg 04/10/23 09:00 Folic Acid 1 Mg Tablet PO DAILY [facility] Sodium Chloride 500 mls @ 15 mls/hr 04/10/23 01:40 Sodium Chloride 3% IV CONT .Q24H [facility] Levothyroxine Sodium 112 mcg 04/10/23 06:30 Levothyroxine Sodium 112 Mcg Tablet PO DAILY@0630 [facility] Morphine Sulfate 4 mg 04/09/23 19:03 Morphine Sulfate (*Crx) 4 Mg/Ml Inj IV PUSH Q2H PRN Pain Rated 7-10 Ondansetron HCl 4 mg 04/09/23 19:03 Ondansetron Inj 4 Mg/2 Ml Vial IV PUSH Q4H PRN Nausea Pantoprazole Sodium 40 mg 04/10/23 09:00 Pantoprazole 40 Mg Tablet [facility] Spironolactone 25 mg 04/10/23 09:00 Spironolactone 25 Mg Tablet PO DAILY [facility] Thiamine HCl 100 mg 04/10/23 09:00 Thiamine Hcl 100 Mg Tablet [facility] Radiology Results: ITS Impressions Venous Doppler Study 04/09/23 16:02 IMPRESSION: 1. No deep venous thrombosis in either lower limb. Chest X-Ray 04/09/23 16:16 IMPRESSION: 1. Cardiomegaly with mild pulmonary edema. Abdomen/Pelvis CT 04/09/23 17:40 IMPRESSION:
[2023-04-10] MEDS: SODIUM CHLORIDE 3% 150 ML 30 ML IV CONT (02:34)
[2023-04-10 04:09] LABS: Basophils Absolute Auto 0.1 K/mm3 (0.0-0.1); Basophils Percent Auto 1.4 % (0.2-1.2); Eosinophils Absolute Auto 0.2 K/mm3 (0-0.3); Eosinophils Percent Auto 4.7 % (0-4.4); Immature Granulocyte Absolute 0.06 K/mm3 (0.00-0.031); Immature Granulocyte Percent A 1.7 % (0-0.5); Lymphocytes Absolute Auto 0.58 K/mm3 (0.9-3.2); Lymphocytes Percent Auto 16.1 % (18.3-44.2); Mean Corpuscular HGB Conc 34.1 g/dl (32-36); Mean Corpuscular Hemoglobin 40.5 pg (26-34); Mean Corpuscular Volume 118.5 fl (80-100); Mean Platelet Volume 9.4 fl (7.4-10.4); Monocytes Absolute Auto 0.7 K/mm3 (0.1-0.6); Monocytes Percent Auto 18.3 % (2.6-8.5); Neutrophils Absolute Auto 2.1 K/mm3 (1.3-6.7); Neutrophils Percent Auto 57.8 % (45.5-73.1); Platelet Count Result 105 k/mm3 (150-375); Red Blood Count 1.73 M/mm3 (4.6-6.20); Red Cell Distribution Width 17.1 % (11.5-14.5); White Blood Count 3.6 K/mm3 (4.5-10.0)
[2023-04-10 04:17] LABS: Hematocrit 20.5 % (42.0-52.0)
[2023-04-10 04:24] LABS: Anisocytosis 2+ (NORMAL); Platelet Estimate Decreased (Adequate)
[2023-04-10 04:25] LABS: Schistocytes None Seen (NORMAL)
[2023-04-10 04:27] LABS: Alanine Aminotransferase 39 U/L (6-50); Albumin Level 2.3 g/dL (3.5-5.1); Alkaline Phosphatase 98 U/L (38-126); Anion Gap 2 mmol/L (8-16); Aspartate Amino Transferase 81 U/L (17-59); Bilirubin,Total 2.4 mg/dL (0.2-1.3); Blood Urea Nitrogen 26 mg/dL (9-20); Calcium 7.6 mg/dL (8.4-10.2); Carbon Dioxide 27 mmol/L (22-30); Chloride 91 mmol/L (98-107); Estimated CRCL calculation 54 ml/min; Estimated Glomerular Filt Rate 56; Glucose 107 mg/dL (65-110); Magnesium 1.9 mg/dL (1.6-2.3); Sodium 120 mmol/L (137-145)
[2023-04-10] MEDS: LEVOTHYROXINE SODIUM 112 MCG TABLET PO (05:31)
[2023-04-10] MEDS: THIAMINE HCL 100 MG TABLET PO (08:28)
[2023-04-10] MEDS: amLODIPine BESYLATE 5 MG TABLET 10 MG PO (08:28)
[2023-04-10] MEDS: PANTOPRAZOLE 40 MG TABLET PO (08:29)
[2023-04-10] MEDS: FOLIC ACID 1 MG TABLET PO (08:29)
[2023-04-10] MEDS: SPIRONOLACTONE 25 MG TABLET PO (08:29)
[2023-04-10 08:30] LABS: Sodium 121 mmol/L (137-145)
--- NOTE | 2023-04-10 10:14 | PM.IMPN ---
Progress Note: A&P Assessment and Plan (1) Hyponatremia: Code(s): E87.1 - Hypo-osmolality and hyponatremia Status: Acute (2) Anasarca: Code(s): R60.1 - Generalized edema Status: Acute (3) Acute on chronic diastolic heart failure: Code(s): I50.33 - Acute on chronic diastolic (congestive) heart failure Status: Acute (4) Acute on chronic anemia: Code(s): D64.9 - Anemia, unspecified Status: Acute (5) Thrombocytopenia: Code(s): D69.6 - Thrombocytopenia, unspecified Status: Acute (6) Alcohol abuse: Code(s): F10.10 - Alcohol abuse, uncomplicated Status: Acute (7) Chronic hepatitis C with cirrhosis: Code(s): B18.2 - Chronic viral hepatitis C; K74.60 - Unspecified cirrhosis of liver Status: Acute (8) Essential (primary) hypertension: Code(s): I10 - Essential (primary) hypertension Status: Acute (9) Hypothyroidism (acquired): Code(s): E03.9 - Hypothyroidism, unspecified Status: Acute Plan Edema evaluation of swelling as per HPI. Labs, imaging, EKG, and all reports were personally reviewed. He has edema extending from his feet to the flanks and he reports a 30 lb weight gain recently. Appears to be acute on chronic diastolic congestive heart failure in addition to decompensated liver failure. He states compliance with his furosemide and spironolactone; he has had an excellent response to IV furosemide given in the ED continue with this, 40 mg b.i.d. with close monitoring of volume status, renal function, and electrolytes. Chronic hepatic failure He has chronically elevated LFTs, mildly prolonged INR, low albumin levels, and thrombocytopenia secondary to his chronic liver disease and synthetic dysfunction. benefit from albumin with diuresis. Start albumin IV chronic hyponatremia but sodium is significantly lower than usual at 117 POA likely due to SIADH Sodium has improved already Fluid restrict to 1500 mL. Received hypertonic saline in the night, discontinue hypertonic saline sodium will be monitored frequently to ensure it is correcting appropriately and not too rapidly. Alcohol withdrawal Uncontrolled tremor Start scheduled Librium 25 mg t.i.d. p.o. CIWA protocol has been initiated. Profound anemia Hemoglobin 6.8 Transfuse 2 pack RBC Hemoglobin and hematocrit are a bit lower than what they were last month. He has not noticed any signs of bleeding and stool was Hemoccult negative on rectal exam done per ED provider. Continue to trend H&H and transfuse if indicated. Send stool to check for occult blood formally. Start per his 40 mg IV daily Follow-up occult blood ferritin iron panel, Continue levothyroxine and check TSH. Blood pressures were reviewed and they have been running a bit high though the should improve with diuresis. His home medications will be reviewed and resumed as appropriate. He does smoke and declines the need for nicotine patch at this time. Subjective Date/time seen: 04/10/23 10:14 Interval history: Saw exam patient, patient has anxiety, uncontrolled tremor, patient was pale, patient feels generally, denies nausea vomiting diarrhea Exam Narrative: General: Chronically ill-appearing gentleman supine in bed. Weight: 88.5 kg. BMI: 28.0. HEENT: PERRL, EOMI. Mild scleral icterus. Conjunctiva mildly injected. Moist mucous membranes. Neck: Supple. No JVD. Respiratory: Respirations are nonlabored. Lung sounds are a bit diminished at the bases but otherwise clear to auscultation. Cardiovascular: Regular rate and rhythm with S1-S2. Gastrointestinal: Abdomen is protuberant with pitting edema at the flanks. Positive bowel sounds. He has tenderness to deeper palpation throughout the abdomen. No guarding or rebound tenderness. Small umbilical hernia is reducible. Skin: Warm and dry. Generalized pallor, mild jaundice. Extremities: No cyanosis or clubbing. Pitting edema
[2023-04-10 10:53] LABS: Basophils Percent Auto 1.3 % (0.2-1.2); Eosinophils Absolute Auto 0.1 K/mm3 (0-0.3); Eosinophils Percent Auto 4.2 % (0-4.4); Immature Granulocyte Absolute 0.06 K/mm3 (0.00-0.031); Immature Granulocyte Percent A 1.9 % (0-0.5); Immature Platelet Fraction Pct 1.5 % (0.9-11.2); Lymphocytes Absolute Auto 0.41 K/mm3 (0.9-3.2); Lymphocytes Percent Auto 13.2 % (18.3-44.2); Mean Corpuscular HGB Conc 32.9 g/dl (32-36); Mean Corpuscular Hemoglobin 39.5 pg (26-34); Mean Corpuscular Volume 120.3 fl (80-100); Mean Platelet Volume 9.1 fl (7.4-10.4); Monocytes Absolute Auto 0.6 K/mm3 (0.1-0.6); Monocytes Percent Auto 18.1 % (2.6-8.5); Neutrophils Absolute Auto 1.9 K/mm3 (1.3-6.7); Neutrophils Percent Auto 61.3 % (45.5-73.1); Platelet Count Result 132 k/mm3 (150-375); Red Blood Count 1.72 M/mm3 (4.6-6.20); Red Cell Distribution Width 17.6 % (11.5-14.5); White Blood Count 3.1 K/mm3 (4.5-10.0)
[2023-04-10 10:53] LABS: Free T4 Free Thyroxine Reflex 1.42 ng/dL (0.78-2.19)
[2023-04-10 11:05] LABS: Alanine Aminotransferase 41 U/L (6-50); Albumin Level 2.4 g/dL (3.5-5.1); Alkaline Phosphatase 98 U/L (38-126); Anion Gap 3 mmol/L (8-16); Aspartate Amino Transferase 88 U/L (17-59); Bilirubin,Total 2.6 mg/dL (0.2-1.3); Blood Urea Nitrogen 25 mg/dL (9-20); Calcium 7.7 mg/dL (8.4-10.2); Carbon Dioxide 29 mmol/L (22-30); Chloride 94 mmol/L (98-107); Estimated CRCL calculation 64 ml/min; Estimated Glomerular Filt Rate > 60; Glucose 102 mg/dL (65-110); Potassium 4.4 mmol/L (3.4-5.0); Sodium 126 mmol/L (137-145)
[2023-04-10] MEDS: PANTOPRAZOLE SODIUM IV 40 MG VIAL IV PUSH (11:05)
[2023-04-10 11:14] LABS: Hemoglobin 6.8 g/dL (14.0-18.0)
[2023-04-10 11:15] LABS: Hematocrit 20.7 % (42.0-52.0)
[2023-04-10 11:16] LABS: Anisocytosis 1+ (NORMAL); Macrocytosis 2+ (NORMAL); Schistocytes None Seen (NORMAL)
[2023-04-10 11:30] LABS: Iron 162 ug/dL (49-181)
[2023-04-10 11:40] LABS: Percent Iron Saturation 48 % (20-50)
[2023-04-10] MEDS: SODIUM CHLORIDE 1 GM TABLET PO ×2 (11:43→16:05)
[2023-04-10] MEDS: CALCIUM CARBONATE (OSCAL) 500 MG TABLET PO ×2 (11:43→16:05)
[2023-04-10] MEDS: SODIUM CHLORIDE 0.9% IV 250 ML 30 ML IV CONT (11:44)
[2023-04-10] MEDS: TUBING, BLOOD PLUM PUMP TUBING 1 EACH XX (11:44)
[2023-04-10 11:49] LABS: Total Triiodothyronine (T3) 1.39 NG/ML (0.97-1.69)
[2023-04-10 12:10] LABS: Sodium 123 mmol/L (137-145)
[2023-04-10] MEDS: chlordiazePOXIDE (*CRX) 25 MG CAPSULE PO ×2 (13:42→22:41)
[2023-04-10] MEDS: ALBUMIN HUMAN 5% 250 ML IV CONT (16:00)
[2023-04-10] MEDS: FUROSEMIDE INJ 40 MG/4 ML VIAL IV PUSH (16:34)
[2023-04-10 16:37] LABS: Sodium 125 mmol/L (137-145)
[2023-04-10] MEDS: LORazepam INJ (*CRX) 2 MG/ML VIAL IV PUSH (17:09)
[2023-04-10 17:52] LABS: Hematocrit 26.1 % (42.0-52.0); Hemoglobin 8.4 g/dL (14.0-18.0)
[2023-04-10 20:31] LABS: Sodium 127 mmol/L (137-145)
[2023-04-10 23:18] LABS: Hematocrit 24.7 % (42.0-52.0); Hemoglobin 8.3 g/dL (14.0-18.0)
[2023-04-11] VITALS (12 sets, daily range): BP systolic 146–185; BP diastolic 78–88; PULSE 100–115; RESP 16–20; TEMP 36.2–37; O2SAT 96–99
[2023-04-11] MEDS: hydrALAZINE HCL 20 MG/ML VIAL 10 MG IV PUSH (00:54)
[2023-04-11 04:57] LABS: Basophils Absolute Auto 0.1 K/mm3 (0.0-0.1); Basophils Percent Auto 1.6 % (0.2-1.2); Eosinophils Absolute Auto 0.2 K/mm3 (0-0.3); Eosinophils Percent Auto 3.9 % (0-4.4); Hematocrit 25.3 % (42.0-52.0); Hemoglobin 8.6 g/dL (14.0-18.0); Immature Granulocyte Absolute 0.09 K/mm3 (0.00-0.031); Immature Granulocyte Percent A 2.3 % (0-0.5); Immature Platelet Fraction Pct 1.6 % (0.9-11.2); Lymphocytes Absolute Auto 0.76 K/mm3 (0.9-3.2); Lymphocytes Percent Auto 19.7 % (18.3-44.2); Mean Corpuscular Hemoglobin 37.1 pg (26-34); Mean Corpuscular Volume 109.1 fl (80-100); Monocytes Absolute Auto 0.7 K/mm3 (0.1-0.6); Monocytes Percent Auto 18.1 % (2.6-8.5); Neutrophils Absolute Auto 2.1 K/mm3 (1.3-6.7); Neutrophils Percent Auto 54.4 % (45.5-73.1); Platelet Count Result 132 k/mm3 (150-375); Red Blood Count 2.32 M/mm3 (4.6-6.20); Red Cell Distribution Width 25.8 % (11.5-14.5); White Blood Count 3.9 K/mm3 (4.5-10.0)
[2023-04-11 05:06] LABS: Alanine Aminotransferase 41 U/L (6-50); Albumin Level 2.6 g/dL (3.5-5.1); Alkaline Phosphatase 106 U/L (38-126); Anion Gap 0 mmol/L (8-16); Aspartate Amino Transferase 89 U/L (17-59); Bilirubin,Total 2.9 mg/dL (0.2-1.3); Blood Urea Nitrogen 22 mg/dL (9-20); Calcium 8.5 mg/dL (8.4-10.2); Carbon Dioxide 29 mmol/L (22-30); Chloride 95 mmol/L (98-107); Estimated CRCL calculation 59 ml/min; Estimated Glomerular Filt Rate > 60; Glucose 92 mg/dL (65-110); Potassium 4.4 mmol/L (3.4-5.0); Sodium 124 mmol/L (137-145)
[2023-04-11 05:39] LABS: Anisocytosis 1+ (NORMAL); Hypochromasia 1+ (NORMAL); Macrocytosis 1+ (NORMAL); Schistocytes None Seen (NORMAL)
[2023-04-11] MEDS: chlordiazePOXIDE (*CRX) 25 MG CAPSULE PO ×3 (06:37→22:37)
[2023-04-11] MEDS: LEVOTHYROXINE SODIUM 112 MCG TABLET PO (06:37)
[2023-04-11] MEDS: amLODIPine BESYLATE 5 MG TABLET 10 MG PO (08:21)
[2023-04-11] MEDS: THIAMINE HCL 100 MG TABLET PO (08:21)
[2023-04-11] MEDS: PANTOPRAZOLE SODIUM IV 40 MG VIAL IV PUSH (08:21)
[2023-04-11] MEDS: FUROSEMIDE INJ 40 MG/4 ML VIAL IV PUSH ×2 (08:21→17:18)
[2023-04-11] MEDS: FOLIC ACID 1 MG TABLET PO (08:21)
[2023-04-11] MEDS: SPIRONOLACTONE 25 MG TABLET PO (08:21)
[2023-04-11] MEDS: SODIUM CHLORIDE 1 GM TABLET PO ×2 (08:21→11:45)
[2023-04-11] MEDS: CALCIUM CARBONATE (OSCAL) 500 MG TABLET PO ×3 (08:21→17:18)
--- NOTE | 2023-04-11 09:02 | PM.IMPN ---
Progress Note: A&P Assessment and Plan (1) Hyponatremia: Code(s): E87.1 - Hypo-osmolality and hyponatremia Status: Acute (2) Anasarca: Code(s): R60.1 - Generalized edema Status: Acute (3) Acute on chronic diastolic heart failure: Code(s): I50.33 - Acute on chronic diastolic (congestive) heart failure Status: Acute (4) Acute on chronic anemia: Code(s): D64.9 - Anemia, unspecified Status: Acute (5) Thrombocytopenia: Code(s): D69.6 - Thrombocytopenia, unspecified Status: Acute (6) Alcohol abuse: Code(s): F10.10 - Alcohol abuse, uncomplicated Status: Acute (7) Chronic hepatitis C with cirrhosis: Code(s): B18.2 - Chronic viral hepatitis C; K74.60 - Unspecified cirrhosis of liver Status: Acute (8) Essential (primary) hypertension: Code(s): I10 - Essential (primary) hypertension Status: Acute (9) Hypothyroidism (acquired): Code(s): E03.9 - Hypothyroidism, unspecified Status: Acute Plan Edema ?evaluation of swelling as per HPI. Labs, imaging, EKG, and all reports were personally reviewed. He has edema extending from his feet to the flanks and he reports a 30 lb weight gain recently. Appears to be acute on chronic diastolic congestive heart failure in addition to decompensated liver failure. He states compliance with his furosemide and spironolactone; he has had an excellent response to IV furosemide given in the ED continue with this, 40 mg b.i.d. with close monitoring of volume status, renal function, and electrolytes. Chronic hepatic failure He has chronically elevated LFTs, mildly prolonged INR, low albumin levels, and thrombocytopenia secondary to his chronic liver disease and synthetic dysfunction. ?benefit from albumin with diuresis. Start albumin IV ?chronic hyponatremia but sodium is significantly lower than usual at 117 POA ?likely due to SIADH Sodium has improved already ?Fluid restrict to 1500 mL. Received hypertonic saline in the night, discontinue hypertonic saline ?sodium will be monitored frequently to ensure it is correcting appropriately and not too rapidly. Alcohol withdrawal Uncontrolled tremor Start scheduled Librium 25 mg t.i.d. p.o. ? CIWA protocol has been initiated. Profound anemia Hemoglobin 6.8 Transfused 2 pack RBC He has not noticed any signs of bleeding and stool was Hemoccult negative on rectal exam done per ED provider. Continue to trend H&H and transfuse if indicated. Send stool to check for occult blood formally. Follow-up occult blood ferritin iron panel within normal limits, Repeat hemoglobin stable Continue levothyroxine and check TSH. Blood pressures were reviewed and they have been running a bit high though the should improve with diuresis. His home medications will be reviewed and resumed as appropriate. He does smoke and declines the need for nicotine patch at this time. . Subjective Date/time seen: 04/11/23 09:02 Interval history: Saw exam patient, patient feels comfortable, onset resolves, no visual hallucination denies nausea vomiting diarrhea Exam Narrative: General: Chronically ill-appearing gentleman supine in bed. Weight: 88.5 kg. BMI: 28.0. HEENT: PERRL, EOMI. Mild scleral icterus. Conjunctiva mildly injected. Moist mucous membranes. Neck: Supple. No JVD. Respiratory: Respirations are nonlabored. Lung sounds are a bit diminished at the bases but otherwise clear to auscultation. Cardiovascular: Regular rate and rhythm with S1-S2. Gastrointestinal: Abdomen is protuberant with pitting edema at the flanks. Positive bowel sounds. He has tenderness to deeper palpation throughout the abdomen. No guarding or rebound tenderness. Small umbilical hernia is reducible. Skin: Warm and dry. Generalized pallor, mild jaundice. Extremities: No cyanosis or clubbing. Pitting edema extending to the flanks. Radial and pedal pulses intact. Neurological: Alert a
[2023-04-11] MEDS: SODIUM CHLORIDE 1 GM TABLET 2 GM PO (17:18)
[2023-04-11] MEDS: MORPHINE SULFATE (*CRX) 4 MG/ML INJ IV PUSH (18:33)
--- NOTE | 2023-04-11 18:55 | PC.NURSE ---
Patient was oriented to room 243 @ 1800. Patient resting comfortably and shown call light and instructed to call for assistance
[2023-04-11 21:09] LABS: Glucose Point of Care 129 mg/dl (65-105)
[2023-04-12] VITALS (8 sets, daily range): BP systolic 148–161; BP diastolic 75–90; PULSE 65–112; RESP 18; TEMP 36.6–36.7; O2SAT 98–100
[2023-04-12] MEDS: LEVOTHYROXINE SODIUM 112 MCG TABLET PO (06:01)
[2023-04-12] MEDS: chlordiazePOXIDE (*CRX) 25 MG CAPSULE PO (06:01)
[2023-04-12 08:24] LABS: Glucose Point of Care 101 mg/dl (65-105)
--- NOTE | 2023-04-12 08:49 | PM.IMPN ---
Progress Note: A&P Assessment and Plan (1) Hyponatremia: Code(s): E87.1 - Hypo-osmolality and hyponatremia Status: Acute (2) Anasarca: Code(s): R60.1 - Generalized edema Status: Acute (3) Acute on chronic diastolic heart failure: Code(s): I50.33 - Acute on chronic diastolic (congestive) heart failure Status: Acute (4) Acute on chronic anemia: Code(s): D64.9 - Anemia, unspecified Status: Acute (5) Thrombocytopenia: Code(s): D69.6 - Thrombocytopenia, unspecified Status: Acute (6) Alcohol abuse: Code(s): F10.10 - Alcohol abuse, uncomplicated Status: Acute (7) Chronic hepatitis C with cirrhosis: Code(s): B18.2 - Chronic viral hepatitis C; K74.60 - Unspecified cirrhosis of liver Status: Acute (8) Essential (primary) hypertension: Code(s): I10 - Essential (primary) hypertension Status: Acute (9) Hypothyroidism (acquired): Code(s): E03.9 - Hypothyroidism, unspecified Status: Acute Plan Edema ?evaluation of swelling as per HPI. Labs, imaging, EKG, and all reports were personally reviewed. He has edema extending from his feet to the flanks and he reports a 30 lb weight gain recently. Appears to be acute on chronic diastolic congestive heart failure in addition to decompensated liver failure. He states compliance with his furosemide and spironolactone; he has had an excellent response to IV furosemide given in the ED continue with this, 40 mg b.i.d. with close monitoring of volume status, renal function, and electrolytes. Edema is improving, continue Lasix 40 mg b.i.d. IV push today, may change to oral diuretic medication tomorrow Chronic hepatic failure He has chronically elevated LFTs, mildly prolonged INR, low albumin levels, and thrombocytopenia secondary to his chronic liver disease and synthetic dysfunction. ?benefit from albumin with diuresis. received albumin IV ?chronic hyponatremia but sodium is significantly lower than usual at 117 POA ?likely due to SIADH Sodium has improved already ?Fluid restrict to 1500 mL. Received hypertonic saline in the night, discontinue hypertonic saline ?sodium will be monitored frequently to ensure it is correcting appropriately and not too rapidly. Na128> 124 Alcohol withdrawal Uncontrolled tremor Start scheduled Librium 25 mg t.i.d. p.o. CIWA protocol has been initiated. Profound anemia Hemoglobin 6.8 Transfused 2 pack RBC He has not noticed any signs of bleeding and stool was Hemoccult negative on rectal exam done per ED provider. Continue to trend H&H and transfuse if indicated. Send stool to check for occult blood formally. Follow-up occult blood ferritin iron panel within normal limits, Repeat hemoglobin stable Continue levothyroxine and check TSH. Blood pressures were reviewed and they have been running a bit high though the should improve with diuresis. His home medications will be reviewed and resumed as appropriate. He does smoke and declines the need for nicotine patch at this time. Consult PT OT social media specialist patient case coordinator for evaluation and assisting placement. Subjective Date/time seen: 04/12/23 08:49 Interval history: i saw and examined the patient, patient feels comfortable, anxiety resolves, no visual hallucination denies nausea vomiting diarrhea. Edema is improving on Lasix 40 mg IV. I reviewed the labs. Patient is afebrile, hemodynamically stable. Exam Narrative: General: Chronically ill-appearing gentleman supine in bed. Weight: 88.5 kg. BMI: 28.0. HEENT: PERRL, EOMI. Mild scleral icterus. Conjunctiva mildly injected. Moist mucous membranes. Neck: Supple. No JVD. Respiratory: Respirations are nonlabored. Lung sounds are a bit diminished at the bases but otherwise clear to auscultation. Cardiovascular: Regular rate and rhythm with S1-S2. Gastrointestinal: Abdomen is protuberant with pitting edema at the flanks. Positive bowel sounds. H
[2023-04-12] MEDS: FOLIC ACID 1 MG TABLET PO (08:57)
[2023-04-12] MEDS: amLODIPine BESYLATE 5 MG TABLET 10 MG PO (08:57)
[2023-04-12] MEDS: CALCIUM CARBONATE (OSCAL) 500 MG TABLET PO ×3 (08:57→16:24)
[2023-04-12] MEDS: PANTOPRAZOLE SODIUM IV 40 MG VIAL IV PUSH (08:58)
[2023-04-12] MEDS: THIAMINE HCL 100 MG TABLET PO (08:58)
[2023-04-12] MEDS: FUROSEMIDE INJ 40 MG/4 ML VIAL IV PUSH ×2 (08:58→16:25)
[2023-04-12] MEDS: SODIUM CHLORIDE 1 GM TABLET 2 GM PO ×2 (08:58→16:24)
[2023-04-12] MEDS: SPIRONOLACTONE 25 MG TABLET PO (08:58)
[2023-04-12 09:31] LABS: Basophils Absolute Auto 0.1 K/mm3 (0.0-0.1); Basophils Percent Auto 1.5 % (0.2-1.2); Eosinophils Absolute Auto 0.2 K/mm3 (0-0.3); Eosinophils Percent Auto 6.2 % (0-4.4); Hematocrit 27.5 % (42.0-52.0); Hemoglobin 9.1 g/dL (14.0-18.0); Immature Granulocyte Absolute 0.03 K/mm3 (0.00-0.031); Immature Granulocyte Percent A 0.9 % (0-0.5); Immature Platelet Fraction Pct 1.5 % (0.9-11.2); Lymphocytes Absolute Auto 0.61 K/mm3 (0.9-3.2); Lymphocytes Percent Auto 18.9 % (18.3-44.2); Mean Corpuscular HGB Conc 33.1 g/dl (32-36); Mean Corpuscular Hemoglobin 36.7 pg (26-34); Mean Corpuscular Volume 110.9 fl (80-100); Mean Platelet Volume 9.4 fl (7.4-10.4); Monocytes Absolute Auto 0.4 K/mm3 (0.1-0.6); Monocytes Percent Auto 12.7 % (2.6-8.5); Neutrophils Absolute Auto 1.9 K/mm3 (1.3-6.7); Neutrophils Percent Auto 59.8 % (45.5-73.1); Platelet Count Result 119 k/mm3 (150-375); Red Blood Count 2.48 M/mm3 (4.6-6.20); Red Cell Distribution Width 24.5 % (11.5-14.5); White Blood Count 3.2 K/mm3 (4.5-10.0)
[2023-04-12 09:37] LABS: Alanine Aminotransferase 40 U/L (6-50); Albumin Level 2.7 g/dL (3.5-5.1); Alkaline Phosphatase 105 U/L (38-126); Anion Gap 2 mmol/L (8-16); Aspartate Amino Transferase 85 U/L (17-59); Bilirubin,Total 2.3 mg/dL (0.2-1.3); Blood Urea Nitrogen 19 mg/dL (9-20); Calcium 8.9 mg/dL (8.4-10.2); Carbon Dioxide 33 mmol/L (22-30); Chloride 93 mmol/L (98-107); Estimated CRCL calculation 55 ml/min; Estimated Glomerular Filt Rate > 60; Glucose 150 mg/dL (65-110); Sodium 128 mmol/L (137-145)
[2023-04-12 10:05] LABS: Anisocytosis 2+ (NORMAL); Hypochromasia 1+ (NORMAL); Macrocytosis 1+ (NORMAL); Platelet Estimate Decreased (Adequate); Schistocytes None Seen (NORMAL)
[2023-04-12 12:01] LABS: Glucose Point of Care 124 mg/dl (65-105)
[2023-04-12 17:05] LABS: Glucose Point of Care 99 mg/dl (65-105)
[2023-04-13 01:15] VITALS: PULSE 102
[2023-04-13 04:00] VITALS: PULSE 101
[2023-04-13 06:00] VITALS: BP 143/79; PULSE 93; RESP 18; TEMP 36.7; O2SAT 97
[2023-04-13] MEDS: LEVOTHYROXINE SODIUM 112 MCG TABLET PO (06:26)
[2023-04-13 07:41] LABS: Basophils Absolute Auto 0.1 K/mm3 (0.0-0.1); Basophils Percent Auto 2.1 % (0.2-1.2); Eosinophils Absolute Auto 0.2 K/mm3 (0-0.3); Eosinophils Percent Auto 6.8 % (0-4.4); Hematocrit 27.5 % (42.0-52.0); Hemoglobin 9.3 g/dL (14.0-18.0); Immature Granulocyte Absolute 0.03 K/mm3 (0.00-0.031); Immature Platelet Fraction Pct 1.7 % (0.9-11.2); Lymphocytes Absolute Auto 0.63 K/mm3 (0.9-3.2); Lymphocytes Percent Auto 21.6 % (18.3-44.2); Mean Corpuscular HGB Conc 33.8 g/dl (32-36); Mean Corpuscular Hemoglobin 37.2 pg (26-34); Mean Platelet Volume 9.2 fl (7.4-10.4); Monocytes Absolute Auto 0.6 K/mm3 (0.1-0.6); Monocytes Percent Auto 21.2 % (2.6-8.5); Neutrophils Absolute Auto 1.4 K/mm3 (1.3-6.7); Neutrophils Percent Auto 47.3 % (45.5-73.1); Platelet Count Result 107 k/mm3 (150-375); Red Cell Distribution Width 23.6 % (11.5-14.5); White Blood Count 2.9 K/mm3 (4.5-10.0)
[2023-04-13 07:48] LABS: Alanine Aminotransferase 38 U/L (6-50); Albumin Level 2.5 g/dL (3.5-5.1); Alkaline Phosphatase 90 U/L (38-126); Anion Gap 3 mmol/L (8-16); Aspartate Amino Transferase 79 U/L (17-59); Bilirubin,Total 1.9 mg/dL (0.2-1.3); Blood Urea Nitrogen 19 mg/dL (9-20); Carbon Dioxide 32 mmol/L (22-30); Chloride 92 mmol/L (98-107); Estimated CRCL calculation 70 ml/min; Estimated Glomerular Filt Rate > 60; Glucose 107 mg/dL (65-110); Potassium 3.9 mmol/L (3.4-5.0); Sodium 127 mmol/L (137-145)
[2023-04-13 08:00] VITALS: PULSE 90
[2023-04-13 08:23] LABS: Anisocytosis 2+ (NORMAL); Hypochromasia 1+ (NORMAL); Macrocytosis 1+ (NORMAL); Platelet Estimate Decreased (Adequate); Schistocytes None Seen (NORMAL)
[2023-04-13] MEDS: CALCIUM CARBONATE (OSCAL) 500 MG TABLET PO ×2 (09:02→12:25)
[2023-04-13] MEDS: FOLIC ACID 1 MG TABLET PO (09:03)
[2023-04-13] MEDS: amLODIPine BESYLATE 5 MG TABLET 10 MG PO (09:03)
[2023-04-13] MEDS: FUROSEMIDE INJ 40 MG/4 ML VIAL IV PUSH (09:03)
[2023-04-13] MEDS: PANTOPRAZOLE SODIUM IV 40 MG VIAL IV PUSH (09:03)
[2023-04-13] MEDS: SODIUM CHLORIDE 1 GM TABLET 2 GM PO (09:03)
[2023-04-13] MEDS: SPIRONOLACTONE 25 MG TABLET PO (09:04)
[2023-04-13] MEDS: THIAMINE HCL 100 MG TABLET PO (09:04)
--- NOTE | 2023-04-13 11:54 | PM.DS ---
DS: Admitting Diagnosis Discharge Date today Admitting Diagnosis (1) Hyponatremia: ?Code(s): E87.1 - Hypo-osmolality and hyponatremia ?Status:?Acute (2) Anasarca: ?Code(s): R60.1 - Generalized edema ?Status:?Acute (3) Acute on chronic diastolic heart failure: ?Code(s): I50.33 - Acute on chronic diastolic (congestive) heart failure ?Status:?Acute (4) Acute on chronic anemia: ?Code(s): D64.9 - Anemia, unspecified ?Status:?Acute (5) Thrombocytopenia: ?Code(s): D69.6 - Thrombocytopenia, unspecified ?Status:?Acute (6) Alcohol abuse: ?Code(s): F10.10 - Alcohol abuse, uncomplicated ?Status:?Acute (7) Chronic hepatitis C with cirrhosis: ?Code(s): B18.2 - Chronic viral hepatitis C; K74.60 - Unspecified cirrhosis of liver ?Status:?Acute (8) Essential (primary) hypertension: ?Code(s): I10 - Essential (primary) hypertension ?Status:?Acute (9) Hypothyroidism (acquired): ?Code(s): E03.9 - Hypothyroidism, unspecified ?Status:?Acute DS: Discharge Diagnosis Discharge Diagnosis (1) Hyponatremia: Code(s): E87.1 - Hypo-osmolality and hyponatremia Status: Acute (2) Anasarca: Code(s): R60.1 - Generalized edema Status: Acute (3) Acute on chronic diastolic heart failure: Code(s): I50.33 - Acute on chronic diastolic (congestive) heart failure Status: Acute (4) Acute on chronic anemia: Code(s): D64.9 - Anemia, unspecified Status: Acute (5) Thrombocytopenia: Code(s): D69.6 - Thrombocytopenia, unspecified Status: Acute (6) Alcohol abuse: Code(s): F10.10 - Alcohol abuse, uncomplicated Status: Acute (7) Chronic hepatitis C with cirrhosis: Code(s): B18.2 - Chronic viral hepatitis C; K74.60 - Unspecified cirrhosis of liver Status: Acute (8) Essential (primary) hypertension: Code(s): I10 - Essential (primary) hypertension Status: Acute (9) Hypothyroidism (acquired): Code(s): E03.9 - Hypothyroidism, unspecified Status: Acute DS: Summary Hospital Course Hospital Course: Per H&P, this is a 62-year-old male with chronic hepatitis C with cirrhosis, hypertension, chronic anemia, hypothyroidism, and GERD who presented to the emergency department from his doctor's office for evaluation of increased swelling. The patient provides the following history. He reports gaining 30 lb within a week with significant distention of his abdomen which is unusual for him. He complains of some shortness of breath and early satiety which he blames on the abdominal swelling. He has generalized discomfort throughout the abdomen which he has difficulties describing.? It is worse with jarring movement and palpation. He is on furosemide and spironolactone at home of which he states compliance. He drinks several glasses of water a day but does not think that he is over hydrated. He drinks beer most days of the week, ranging anywhere from 2 to 6 beers a day though I suspect it may be more. He has some shakes on exam and he does mention that he will have tremors if it has been a day or so since he last had a drink. He denies fever, chills, sweats, cold and flu symptoms, chest pain, pleuritic pain, palpitations, vomiting, diarrhea, and dysuria. His labs were significant for a WBC count of 5.1, hemoglobin and hematocrit of 7.4 and 22% respectively (a 3 g decrease in hemoglobin compared to labs drawn last month) platelet 122, sodium 117, chloride 87, BUN 28, creatinine 1.30, total bilirubin 2.9, AST 93, ALT 45, alkaline phosphatase 141, albumin 2.7, PT 16.7, INR 1.3. CT of the abdomen and pelvis showed small bilateral pleural effusions, moderate esophagitis/gastritis, cirrhosis with portal hypertension, marked gallbladder wall thickening which is a nonspecific finding in the setting of chronic liver disease, mesenteric lymphadenopathy, small volume ascites, and right colonic wall edema li
[2023-04-13 19:56] LABS: Osmolality, Urine 260 mOsm/kg (50-1200)
== END 2023-04-13 12:56 | disposition home or self-care (01) | DRG 194 ==
LOC: ANHED 16:03 → ANHIMU 21:10 → ANH2MED 04-11 18:11
PROVIDERS: Physician Assistant; Admitting Provider Student in an Organized Health Care Education/Training Program; Emergency Provider Physician Assistant; PCP Family Medicine; Visit Provider Hospitalist
DX: I11.0 Hypertensive heart disease with heart failure (principal); D69.6 Thrombocytopenia, unspecified; K72.10 Chronic hepatic failure without coma; E87.1 Hypo-osmolality and hyponatremia; I50.33 Acute on chronic diastolic (congestive) heart failure; K74.60 Unspecified cirrhosis of liver; I77.9 Disorder of arteries and arterioles, unspecified; B18.2 Chronic viral hepatitis C; J45.909 Unspecified asthma, uncomplicated; K21.9 Gastro-esophageal reflux disease without esophagitis; E03.9 Hypothyroidism, unspecified; D64.9 Anemia, unspecified; M19.90 Unspecified osteoarthritis, unspecified site; R60.1 Generalized edema; F10.139 Alcohol abuse with withdrawal, unspecified; F10.10 Alcohol abuse, uncomplicated; F17.210 Nicotine dependence, cigarettes, uncomplicated; Z86.010 Personal history of colon polyps
CPT/HCPCS: 36415; 36430; 71045; 74177; 80048; 80053; 81001; 82140; 82728; 82948; 83540; 83550; 83605; 83735; 83880; 83930; 83935; 84295; 84439; 84443; 84480; 85014; 85018; 85025; 85055; 85610; 85730; 86850; 86900; 86901; 86923; 87040; 87086; 93970; 96365; 96367; 96374; 96375; 99285; A9270; C9113; G0378; G0379; J0360; J0696; J1836; J1940; J2060; J2270; J2405; J3475; J7050; J7131; P9016; P9041; Q9967

== ENCOUNTER 2023-07-19 07:40 | Outpatient (CLI) | payer OTHER, SELFPAY ==
--- NOTE | ~2023-07-19 | US_ITS ---
EXAMINATION: US right upper quadrant DATE: 07/19/2023 08:47 INDICATION: Chronic hepatitis C TECHNIQUE: Multiple grayscale and Doppler ultrasound images of the abdomen were obtained. COMPARISON: 12/29/2021 FINDINGS: Bowel gas obscures visualization of the pancreas. The visualized portions of the pancreas a re unremarkable. The liver demonstrates heterogeneous echogenicity and coarsened echotexture. The erin er surface is nodular. Normal hepatopetal flow in the main portal vein. There is no gallbladder wall thickening. No stones or pericholecystic fluid are identified. The normal common bile duct measures 6 mm. There was no sonographic Moore sign. IMPRESSION: 1. Cirrhosis. Reviewed, dictated and finalized at location F. K POWDER GLAZING OPERATOR IMPRESSION: 1. Cirrhosis.
== END 2023-07-19 07:41 | disposition home or self-care (01) ==
PROVIDERS: PCP Family Medicine; Visit Provider Internal Medicine Gastroenterology
DX: B18.2 Chronic viral hepatitis C (principal); K74.60 Unspecified cirrhosis of liver; R74.8 Abnormal levels of other serum enzymes
CPT/HCPCS: 76705

== ENCOUNTER 2023-10-26 19:10 | Inpatient (IN) | payer OTHER, SELFPAY ==
[2023-10-26] VITALS (10 sets, daily range): BP systolic 95–135; BP diastolic 50–115; PULSE 73–79; RESP 12–22; TEMP 36.4; O2SAT 97–100
--- NOTE | ~2023-10-26 | XR_ITS ---
EXAMINATION: XR chest 1V portable Exam Date/Time: 10/26/2023 20:10 MACHINE SILVER STRIPPER HISTORY: dyspnea, wheezing, cough Comparison: None. RESULT: Lines, tubes, and devices: None. Lungs and pleura: Mild diffuse reticular opacities. Trace bilateral costophrenic angle blunting. Cardiomediastinal silhouette: Stable. Other: No acute osseous or upper abdominal finding. IMPRESSION: Mild interstitial edema. Possible trace bilateral pleural effusions. Reviewed, dictated and finalized at location K. INE SILVER STRIPPER
--- NOTE | ~2023-10-26 | CT_ITS ---
EXAMINATION: CTA chest PE abdomen pel DATE: 10/26/2023 21:10 INDICATION: dyspnea eval for PE, elevated liver enzymes asciti TECHNIQUE: Computed tomography angiography (CTA) of the chest was performed with 100 mL Omnipaque-350 intravenous contrast timed to evaluate the pulmonary arteries, followed by portal venous phase imagi ng of the abdomen and pelvis. Coronal maximum intensity projection 3D-reconstructions were created by the technologist. The dose-length product (DLP) was 1574.96 mGy-cm. Automated exposure control and i terative reconstruction technique were employed. COMPARISON: X-ray chest, same date; CT abdomen pelvis 04/09/2023; CT lung screening 02/13/2023. FINDINGS: CHEST: Lung parenchyma and airways: Focally reticular opacity in the anterior right upper lobe, likely infla mmatory. Bilateral dependent atelectasis. Pleura: Moderate bilateral pleural fluid collections. Thoracic inlet, axillae and chest wall: No thyroid mass. Diffuse body wall edema. Marked bilateral gy necomastia. Thoracic aorta: Atherosclerotic calcifications. No dilation or dissection. Mediastinum: Normal. Heart and pericardium: Mild cardiomegaly. Coronary artery calcifications: Mild. Thoracic bones: No acute osseous finding. Pulmonary arteries: Study quality: Adequate. No pulmonary emboli detected. ABDOMEN/PELVIS: Liver: Nodular liver border. Biliary/Gallbladder: Mucosal hyperemia, moderate wall edema/inflammation. No stone detected. No bile duct dilation. Pancreas: Mild atrophy Spleen: Normal. Adrenals:No mass. Kidneys: No suspicious mass, obstructing stone, or hydronephrosis. Medullary nephrocalcinosis. GI tract: Mild distal esophageal and gastric wall edema. No small or large bowel dilation. Normal liana endix. Mesentery/Peritoneum: Trace fluid in the deep pelvis. Upper abdominal varices and lymphadenopathy. Retroperitoneum: No mass. Pelvis: Pelvic organs are within normal limits. Soft Tissues: Mild diffuse body wall edema. Uncomplicated fat-containing left inguinal hernia. Fat an d fluid present in the right inguinal canal. Small bilateral hydroceles. Small fat and fluid containi ng umbilical hernia. Abdominopelvic bones: No acute osseous finding IMPRESSION: No CT evidence of acute pulmonary embolus. Moderate bilateral pleural effusions. Gallbladder mucosal hyperemia and wall edema/inflammation, nonspecific in the setting of chronic live r disease, correlate with symptoms right upper quadrant pain and biliary labs. Mild esophagitis/gastritis. Cirrhosis with portal hypertension. Mild diffuse body wall edema. Reviewed, dictated and finalized at location K. ECT ASSOCIATE IMPRESSION: No CT evidence of acute pulmonary embolus. Moderate bilateral pleural effusions. Gallbladder mucosal hyperemia and wall edema/inflammation, nonspecific in the s etting of chronic liver disease, correlate with symptoms right upper quadrant p ain and biliary labs. Mild esophagitis/gastritis. Cirrhosis with portal hypertension. Mild diffuse body wall edema.
--- NOTE | 2023-10-26 19:36 | ECG_ITS ---
Measurements Intervals [place] Rate: 71 P: 25 ND: 204 QRS: 55 QRSD: 101 T: 30 QT: 409 QTc: 447 Interpretive Statements SINUS RHYTHM LOW QRS VOLTAGE IN PRECORDIAL LEADS BORDERLINE R WAVE PROGRESSION, ANTERIOR LEADS BASELINE ARTIFACT- V1-V3 BORDERLINE ECG NO PREVIOUS ECG AVAILABLE FOR COMPARISON Electronically Signed On 10-26-2023 20:40:58 CRANE OPERATOR CAB by Jose Angel Rajan D.O.
[2023-10-26 20:12] LABS: Basophils Percent Auto 0.3 % (0.2-1.2); Hematocrit 22.8 % (42.0-52.0); Hemoglobin 7.4 g/dL (14.0-18.0); Immature Granulocyte Absolute 0.09 K/mm3 (0.00-0.031); Immature Granulocyte Percent A 1.5 % (0-0.5); Lymphocytes Absolute Auto 0.62 K/mm3 (0.9-3.2); Lymphocytes Percent Auto 10.1 % (18.3-44.2); Mean Corpuscular HGB Conc 32.5 g/dl (32-36); Mean Corpuscular Hemoglobin 37.6 pg (26-34); Mean Corpuscular Volume 115.7 fl (80-100); Mean Platelet Volume 9.2 fl (7.4-10.4); Monocytes Absolute Auto 0.8 K/mm3 (0.1-0.6); Monocytes Percent Auto 13.5 % (2.6-8.5); Neutrophils Absolute Auto 4.6 K/mm3 (1.3-6.7); Neutrophils Percent Auto 74.6 % (45.5-73.1); Platelet Count Result 133 k/mm3 (150-375); Red Blood Count 1.97 M/mm3 (4.6-6.20); Red Cell Distribution Width 18.2 % (11.5-14.5); White Blood Count 6.1 K/mm3 (4.5-10.0)
[2023-10-26 20:20] LABS: Lipase 246 U/L (23-300); Magnesium 2.3 mg/dL (1.6-2.3)
[2023-10-26 20:22] LABS: INR 1.6; Prothrombin Time 20.3 Seconds (11.1-14.7)
[2023-10-26 20:23] LABS: Partial Thromboplastin Time 36.1 SECONDS (22.3-36.8)
[2023-10-26 20:25] LABS: Hypochromasia 1+ (NORMAL); Platelet Estimate Decreased (Adequate)
[2023-10-26 20:26] LABS: Macrocytosis 1+ (NORMAL); Microcytosis 1+ (NORMAL); Schistocytes None Seen (NORMAL)
[2023-10-26 20:27] LABS: Alanine Aminotransferase 84 U/L (6-50); Albumin Level 3.2 g/dL (3.5-5.1); Alkaline Phosphatase 132 U/L (38-126); Anion Gap 15 mmol/L (8-16); Aspartate Amino Transferase 284 U/L (17-59); Bilirubin,Total 7.9 mg/dL (0.2-1.3); Blood Urea Nitrogen 33 mg/dL (9-20); Calcium 8.3 mg/dL (8.4-10.2); Carbon Dioxide 14 mmol/L (22-30); Chloride 88 mmol/L (98-107); Estimated CRCL calculation 49 ml/min; Estimated Glomerular Filt Rate 51; Glucose 71 mg/dL (65-110); Potassium 4.9 mmol/L (3.4-5.0); Sodium 117 mmol/L (137-145)
[2023-10-26 20:28] LABS: NT Pro B Type Natriuretic Pept 1680 pg/mL (19.9-100)
[2023-10-26 20:33] LABS: Ethanol 10 mg/dL (<10)
[2023-10-26 20:42] LABS: Procalcitonin 0.4 ng/mL
[2023-10-26] MEDS: SODIUM CHLORIDE 0.9% IV 1,000 ML 999 ML IV CONT (20:43)
[2023-10-26 20:45] LABS: Influenza A QL RT-PCR Negative (Negative); Influenza B QL RT-PCR Negative (Negative); RSV RNA, RT-PCR Negative (Negative); SARS-CoV-2 RNA PCR Negative (Negative)
[2023-10-26 21:58] LABS: Alveolar/Arterial O2 Gradient 83.8 mmHg; Base Excess ABG -8.6 mEq/l (+/-2.0); Device NASAL CANNULA; Fractional Inspired Oxygen 28 %; Modified Allen's Test Pass; Oxygen Content ABG 10.4 %vol (16.0-22.0); Oxygen Saturation ABG 95.6 % (95.0-100.0); Oxyhemoglobin 90.9 % THb (90.0-100.0); PCO2 ABG 29.6 mmHg (35.0-45.0); PO2 ABG 80.9 mmHg (80.0-100.0); PO2 FiO2 Ratio Arterial Blood 2.89 %; Site Drawn LEFT RADIAL; pH ABG 7.351 (7.350-7.450)
[2023-10-26 22:21] LABS: Appearance Urine Clear (Clear); Bilirubin Urine 2+ (Negative); Blood Urine Negative (Negative); Color Urine Dark Yellow (Yellow); Glucose Urine UA Negative (Negative); Ketones Urine Trace mg/dL (Negative); Leukocyte Esterase Ur Negative LEU/UL (Negative); Nitrate Urine Negative (Negative); Protein Urine Negative (Negative); Specific Grav Ur 1.026 (1.001-1.035)
[2023-10-26 22:22] LABS: Add Urine Microscopic? NO
[2023-10-26 22:38] LABS: Amphetamine Screen Urine Negative (Negative); Barbiturate Screen Urine Negative (Negative); Benzodiazepines Screen Urine Negative (Negative); Cannabinoid Screen Urine Negative (Negative); Cocaine Screen Urine Negative (Negative); Methadone Screen Urine Negative (Negative); Opiate Screen Urine Negative (Negative); Phencyclidine Screen Urine Negative (Negative)
[2023-10-26 22:52] LABS: Ammonia 62 umol/L (9-30)
[2023-10-26 22:58] LABS: Lactic Acid Reflex 6.1 mmol/L (0.7-2.0)
[2023-10-26 23:05] LABS: Reflex Lactic Acid Yes or No Add Lactic
[2023-10-26 23:20] LABS: Troponin I 0.043 ng/mL (0.000-0.034)
[2023-10-26] MEDS: FUROSEMIDE INJ 40 MG/4 ML VIAL IV PUSH (23:28)
--- NOTE | 2023-10-26 23:30 | PC.NURSE ---
this rn spoke with [facility] at 2330 to give a triage assessment about pt. Accepting doctor was Dr. Gates. [facility] transfer center stated the pt would not have a bed at the facility tonight.
[2023-10-26] MEDS: LACTULOSE 20 GM/30 ML UDC 40 GM PO (23:42)
[2023-10-27] VITALS (33 sets, daily range): BP systolic 87–152; BP diastolic 57–109; PULSE 76–91; RESP 12–24; TEMP 36.4; O2SAT 93–100
[2023-10-27] MEDS: THIAMINE 500 MG/NS 100 ML 500 MG/100 ML BAG 200 MG IVPB (00:28)
--- NOTE | 2023-10-27 01:10 | ED.GENADULT ---
HPI - General Adult General Chief complaint: Shortness of Breath/Dyspnea <Kiran Dominguez MD - Last Filed: 10/28/23 06:31> Stated complaint: SOB/back pain/edema/abd dist <Kiran Dominguez MD - Last Filed: 10/28/23 06:31> Time Seen by Provider: 10/26/23 19:24 <Kiran Dominguez MD - Last Filed: 10/28/23 06:31> History of Present Illness HPI narrative: Patient is 63-year-old gentleman who presents emergency department with chief complaint of shortness of breath. Patient has prior history of cirrhosis and reports that he has been having progressive edema of his body and has noticed that he has been getting more more short of breath. The patient was transported by EMS was found to be hypoxic with being 87% on room air patient reports that he was supposed to be on diuretics but stopped taking them because he was losing too much weight. Patient reports that he does still drink a few beers a day the patient denies fever <Kiran Dominguez MD - Last Filed: 10/28/23 06:31> Related Data Allergies/adverse reactions: Allergies Allergy/AdvReac Type Severity Reaction Status Date / Time lisinopril Allergy Severe Swelling Verified 10/28/23 06:48 of Lip/Tongue/Throat <Kiran Dominguez MD - Last Filed: 10/28/23 06:31> Review of Systems Review of Systems: A 10 system review of systems was completed on the patient and is negative except for what is stated in the HPI. Nursing and ancillary documentation was reviewed. <Kiran Dominguez MD - Last Filed: 10/28/23 06:31> [facility] Past Medical History Medical History: Medical History Acute on chronic diastolic heart failure Adenomatous colon polyp Alcohol abuse Arthritis Asthma Carotid arterial disease Chronic hepatitis C with cirrhosis Chronic hyponatremia Diastolic dysfunction Encounter for screening colonoscopy Essential (primary) hypertension Gastritis Gastroesophageal reflux disease History of vitreous hemorrhage of left eye 08/2018 Hypothyroidism (acquired) Thrombocytopenia Tobacco abuse <Kiran Dominguez MD - Last Filed: 10/28/23 06:31> Surgical History Surgical History: Surgical History History of colonoscopy with polypectomy History of tonsillectomy and adenoidectomy History of vitrectomy (~08/2018) 08/2018 - Left <Kiran Dominguez MD - Last Filed: 10/28/23 06:31> Family History Family History: Family History Sibling Hypertension Sibling Cerebrovascular accident Acute myocardial infarction Mother Asthma Father Cerebrovascular accident Dementia Alcohol abuse <Kiran Dominguez MD - Last Filed: 10/28/23 06:31> Social History Social History: Social History Social History: Surrogate medical decision maker: Eliza Watson, and sister. Code status: Full code. Smoking packs per day: 0.5 Smoking cigarettes per day: 10.0 Years smoked: 30 Smoking pack-years: 15.00 Smoking status: Current every day smoker Tobacco type: cigarettes Alcohol intake: current Drinks per week: 35 Alcohol use details: beer Substance use: current Substance use type: marijuana Other substance usage details: occasionally Lack of Transportation: No Lack of Food: Never True Current Housing: I Have Housing Concerned About Future Housing: No Difficulty Paying Gas/Electric Bills: No Difficulty Paying for Meds: No Currently Unemployed: No Education: High School Diploma/GED Difficulty w/ Childcare or Family Care: No Additional living arrangements comments: Lives in [place]. Has 2 children. Additional occupation/education comments: Currently unemployed. Spiritual care
--- NOTE | 2023-10-27 01:57 | PC.NURSE ---
pt ws placed in a hospital bed.
[2023-10-27 02:19] LABS: Anion Gap 12 mmol/L (8-16); Blood Urea Nitrogen 36 mg/dL (9-20); Calcium 8.1 mg/dL (8.4-10.2); Carbon Dioxide 16 mmol/L (22-30); Chloride 91 mmol/L (98-107); Estimated CRCL calculation 45 ml/min; Estimated Glomerular Filt Rate 47; Glucose 79 mg/dL (65-110); Potassium 4.8 mmol/L (3.4-5.0); Sodium 119 mmol/L (137-145)
--- NOTE | 2023-10-27 04:21 | PC.NURSE ---
pt noted to be out of bed. Pt noted to have taken off vital equipment. Pt also noted to have bilateral IV catheters on the floor. Iv catheter's intact upon assessment. pt stated, I did not have time to hit my call light because I had to go to the bathroom so bad . this RN noted the call light to be in the middle of the bed within patient reach. pt was also noted to be covered in bowel movement along with bowel movement covered on the floor, vital equipment, side table, cabinets, sink, and trashcan. Pt stated he was unable to control bowel movement and didn't know how to get ahold of this rn. this rn reoriented patient to sit in the bed. this rn educated patient on importance of hitting the call light. this rn cleaned pt/ room up and changed linen. this rn reinitiated an 18 guage IV in the left outer wrist. Pt oxygen was reapplied. pt is ao x4 at this time. pt still has audbile wheezing at this time with labored breathing. this rn notified edp dr. winters along with viscose cellar charge hand TAWANDA.
[2023-10-27 05:58] LABS: Ammonia 21 umol/L (9-30)
[2023-10-27 06:03] LABS: Anion Gap 12 mmol/L (8-16); Blood Urea Nitrogen 38 mg/dL (9-20); Calcium 8.2 mg/dL (8.4-10.2); Carbon Dioxide 16 mmol/L (22-30); Chloride 91 mmol/L (98-107); Estimated CRCL calculation 40 ml/min; Estimated Glomerular Filt Rate 41; Glucose 81 mg/dL (65-110); Potassium 4.9 mmol/L (3.4-5.0); Sodium 119 mmol/L (137-145)
[2023-10-27] MEDS: IPRATROPIUM 0.5 MG/ALBUTEROL SULFATE 2.5 MG AMPUL.NEB 3 ML INHALATION (06:04)
[2023-10-27 06:08] LABS: Alveolar/Arterial O2 Gradient 86.2 mmHg; Base Excess ABG -8.6 mEq/l (+/-2.0); Fractional Inspired Oxygen 28 %; HCO3 ABG 16.5 mEq/l (22.0-26.0); Oxygen Content ABG 13.3 %vol (16.0-22.0); Oxygen Saturation ABG 94.1 % (95.0-100.0); Oxyhemoglobin 90.4 % THb (90.0-100.0); PCO2 ABG 32.9 mmHg (35.0-45.0); PO2 ABG 74.6 mmHg (80.0-100.0); PO2 FiO2 Ratio Arterial Blood 2.66 %; Total Hemoglobin 10.4 g/dL (12.0-18.0); pH ABG 7.319 (7.350-7.450)
[2023-10-27 06:09] LABS: Device NASAL CANNULA; Modified Allen's Test Pass; Site Drawn LEFT RADIAL
[2023-10-27] MEDS: ALBUTEROL SULFATE NEB 2.5 MG/3 ML INH 15 MG INHALATION (07:54)
[2023-10-27] MEDS: IPRATROPIUM BR 0.02% INH SOLN 0.5 MG/2.5 ML VIAL 1.5 MG INHALATION (07:54)
[2023-10-27] MEDS: FUROSEMIDE INJ 40 MG/4 ML VIAL IV PUSH ×2 (09:06→21:38)
[2023-10-27] MEDS: LACTULOSE 20 GM/30 ML UDC 40 GM PO ×2 (09:06→17:14)
--- NOTE | 2023-10-27 10:18 | PC.NURSE ---
Spoke w/ Harper from [facility] and gave update on pt vitals, labs, and status. Per Harper, she will continue to seek bed placement at [facility] and will call back when a bed is available.
--- NOTE | 2023-10-27 11:27 | PC.NURSE ---
spoke with pts sister on the phone w/ pts permission, gave update on pt status/POC
--- NOTE | 2023-10-27 15:51 | PC.NURSE ---
touched base with both [place] & [facility] no beds at either facility pt remains on wait list
--- NOTE | 2023-10-27 16:22 | PC.NURSE ---
Amelia from [facility] calling for update on pt status. Will keep on list and cont to seek bed placement for pt.
--- NOTE | 2023-10-27 17:04 | PC.NURSE ---
ordered patient a meal tray
--- NOTE | 2023-10-27 19:20 | PC.NURSE ---
Assumed care of pt from ANJALI Pickett at this time.
--- NOTE | 2023-10-27 21:48 | ECG_ITS ---
Measurements Intervals [place] Rate: 88 P: 81 DE: 200 QRS: 55 QRSD: 97 T: 59 QT: 363 QTc: 439 Interpretive Statements SINUS RHYTHM POSSIBLE LEFT ATRIAL ENLARGEMENT BORDERLINE R WAVE PROGRESSION, ANTERIOR LEADS BORDERLINE ST-T WAVE ABNORMALITY- INF/HIGH LAT LEADS BASELINE ARTIFACT- I, AVL BORDERLINE ECG COMPARED TO ECG 10/26/2023 19:55:37 NO SIGNIFICANT CHANGES Electronically Signed On 10-28-2023 10:14:45 THUMB SEWER by Jose Angel Rajan D.O.
[2023-10-27 22:56] LABS: Lactic Acid Reflex 1.2 mmol/L (0.7-2.0)
[2023-10-27 23:00] LABS: Anion Gap 5 mmol/L (8-16); Blood Urea Nitrogen 47 mg/dL (9-20); Calcium 8.2 mg/dL (8.4-10.2); Carbon Dioxide 23 mmol/L (22-30); Chloride 92 mmol/L (98-107); Estimated CRCL calculation 49 ml/min; Estimated Glomerular Filt Rate 51; Glucose 98 mg/dL (65-110); Potassium 4.1 mmol/L (3.4-5.0); Sodium 120 mmol/L (137-145)
--- NOTE | 2023-10-27 23:04 | PC.NURSE ---
[facility] called this RN for pt update. Due to pt improved status pt being consulted to move from ICU to medical floor. Xfr center to call back to speak to provider regarding pt. EDP Dr. Dominguez made aware.
[2023-10-28] VITALS (25 sets, daily range): BP systolic 103–163; BP diastolic 63–114; PULSE 80–100; RESP 14–27; TEMP 36.4–36.5; O2SAT 89–100; BMI 30.7
--- NOTE | 2023-10-28 02:59 | PC.NURSE ---
This RN went to check on pt due to no vitals showing on monitor. Upon entering room pt was yelling and cursing about being in the hospital and hearing the alarming on monitor. Pt had removed all VS monitoring and oxygen. Upon putting pt back on monitor pt ripped off leads again. Pt was educated by this RN on importance of wearing monitor and reassured we would mute the monitor when possible. Pt allowed this RN to place leads back on and oxygen. Pt was satting 89% without oxygen. Pt VS are now stable and pt is resting comfortably in bed.
[2023-10-28 06:57] LABS: Basophils Percent Auto 0.1 % (0.2-1.2); Eosinophils Percent Auto 0.1 % (0-4.4); Hemoglobin 7.4 g/dL (14.0-18.0); Immature Granulocyte Absolute 0.11 K/mm3 (0.00-0.031); Immature Granulocyte Percent A 1.3 % (0-0.5); Lymphocytes Absolute Auto 0.69 K/mm3 (0.9-3.2); Mean Corpuscular HGB Conc 32.2 g/dl (32-36); Mean Corpuscular Hemoglobin 37.6 pg (26-34); Mean Corpuscular Volume 116.8 fl (80-100); Mean Platelet Volume 9.6 fl (7.4-10.4); Monocytes Absolute Auto 1.2 K/mm3 (0.1-0.6); Monocytes Percent Auto 13.4 % (2.6-8.5); Neutrophils Absolute Auto 6.7 K/mm3 (1.3-6.7); Neutrophils Percent Auto 77.1 % (45.5-73.1); Platelet Count Result 113 k/mm3 (150-375); Red Blood Count 1.97 M/mm3 (4.6-6.20); White Blood Count 8.7 K/mm3 (4.5-10.0)
[2023-10-28] MEDS: amLODIPine BESYLATE 5 MG TABLET 10 MG PO (06:59)
[2023-10-28] MEDS: PANTOPRAZOLE 40 MG TABLET PO (06:59)
[2023-10-28 07:02] LABS: Alanine Aminotransferase 118 U/L (6-50); Alkaline Phosphatase 134 U/L (38-126); Ammonia < 9 umol/L (9-30); Anion Gap 5 mmol/L (8-16); Aspartate Amino Transferase 284 U/L (17-59); Bilirubin,Total 6.5 mg/dL (0.2-1.3); Blood Urea Nitrogen 45 mg/dL (9-20); Calcium 8.2 mg/dL (8.4-10.2); Carbon Dioxide 24 mmol/L (22-30); Chloride 92 mmol/L (98-107); Estimated CRCL calculation 45 ml/min; Estimated Glomerular Filt Rate 47; Glucose 93 mg/dL (65-110); Potassium 4.1 mmol/L (3.4-5.0); Sodium 121 mmol/L (137-145)
--- NOTE | 2023-10-28 07:06 | PC.NURSE ---
Pt requesting daily medications. EDP Dr. Alberto ALLEN daily morning medications.
[2023-10-28 07:11] LABS: NT Pro B Type Natriuretic Pept 2320 pg/mL (19.9-100)
[2023-10-28 07:13] LABS: INR 1.7; Prothrombin Time 21.2 Seconds (11.1-14.7)
--- NOTE | 2023-10-28 07:14 | PC.NURSE ---
Report given to ANJALI Barnett and ANJALI Calloway at this time.
[2023-10-28 07:30] LABS: Basophilic Stippling 1+ (NORMAL); Hypochromasia 1+ (NORMAL); Platelet Estimate Adequate (Adequate); Polychromasia 1+ (NORMAL)
[2023-10-28 07:31] LABS: Macrocytosis 1+ (NORMAL); Schistocytes None Seen (NORMAL)
[2023-10-28] MEDS: LEVOTHYROXINE SODIUM 112 MCG TABLET PO (07:53)
--- NOTE | 2023-10-28 10:05 | PC.NURSE ---
Gave update on pts condition to [facility] transfer center. [facility] states they will update us when they have a bed.
[2023-10-28] MEDS: THIAMINE 500 MG/NS 100 ML 500 MG/100 ML BAG 200 MG IVPB (10:07)
[2023-10-28] MEDS: LACTULOSE 20 GM/30 ML UDC 40 GM PO ×2 (10:08→17:34)
[2023-10-28] MEDS: FUROSEMIDE INJ 40 MG/4 ML VIAL IV PUSH ×2 (10:08→21:45)
--- NOTE | 2023-10-28 12:15 | ECG_ITS ---
Measurements Intervals [place] Rate: 88 P: 84 AR: 201 QRS: 57 QRSD: 102 T: 57 QT: 367 QTc: 445 Interpretive Statements SINUS RHYTHM POSSIBLE LEFT ATRIAL ENLARGEMENT BORDERLINE R WAVE PROGRESSION, ANTERIOR LEADS BORDERLINE ST-T WAVE ABNORMALITY- INFERIOR LEADS BORDERLINE ECG COMPARED TO ECG 10/27/2023 21:48:39 NO SIGNIFICANT CHANGES Electronically Signed On 10-28-2023 16:53:42 LOTTERY CLERK by Jose Angel Rajan D.O.
--- NOTE | 2023-10-28 12:29 | PC.NURSE ---
Pt repositioned and depends changed. Pt appears more SOB. This RN listened to lungs sounds and pt is very coarse. Pt also is coughing up blood. Dr. Gonzalez notified and came to assess pt. Dr. Gonzalez states he will order a breathing treatment.
[2023-10-28] MEDS: IPRATROPIUM BR 0.02% INH SOLN 0.5 MG/2.5 ML VIAL 1.5 MG INHALATION (12:57)
[2023-10-28] MEDS: ALBUTEROL SULFATE NEB 2.5 MG/3 ML INH 15 MG INHALATION (12:58)
[2023-10-28] MEDS: ALBUMIN HUMAN 25% 25 GM/100 ML 100 ML IVPB (15:30)
--- NOTE | 2023-10-28 16:14 | ADMGEN ---
This patient, Francesco Fxo, was admitted to Medical Room 342-01. Patient/family oriented to hospital policies and general routines including ID bracelet, bed and alarms, visiting hours, pain management, procedures, bathroom and other care routines, personal items, smoking policy, room service/diet, and visiting hours. Information on how to activate the Rapid Response Team has been discussed. Patient/Family are encouraged to report perceived risks to care and to ask questions if they do not understand what they are told or what they should do.
--- NOTE | 2023-10-28 20:10 | PM.IMHP ---
H&P: HPI History of Present Illness Date/Time: 10/28/23 20:10 Chief Complaint: Shortness of breath Narrative: This is a 63-year-old male with a history of chronic hepatitis C and alcohol abuse with cirrhosis, portal hypertension, hypertension, chronic anemia, hypothyroidism, GERD, chronic hyponatremia, asthma, active tobacco abuse, diastolic heart failure, CKD stage IIIA who presents with complaints of shortness of breath. The patient stopped his Lasix because he lost weight. In [facility] he is found to be hypoxic along with elevated lactic acidosis and decompensated cirrhosis/heart failure. The patient still admits to drinking a few beers per day. His lactic acidosis cleared upon initiation of thiamine and Lasix and albumin administration. He has been on the wait list for both [facility] and admitted on 10/28/2023 for further care while he waits for transfer. Upon evaluation in room 342 the patient reports he is feeling okay and has nothing to clarify. Most of his answers consist of I don't know. And he tells me he does not want all the length the BS. That goes on and hospitals. However he does not further clarify what that means. Review of Systems Review of Systems: All systems reviewed & are unremarkable except as noted in HPI and below (Subjective) PMFSH Past Medical History Medical History Acute on chronic diastolic heart failure Adenomatous colon polyp Alcohol abuse Arthritis Asthma Carotid arterial disease Chronic hepatitis C with cirrhosis Chronic hyponatremia Diastolic dysfunction Encounter for screening colonoscopy Essential (primary) hypertension Gastritis Gastroesophageal reflux disease History of vitreous hemorrhage of left eye 08/2018 Hypothyroidism (acquired) Thrombocytopenia Tobacco abuse Surgical History Surgical History History of colonoscopy with polypectomy History of tonsillectomy and adenoidectomy History of vitrectomy (~08/2018) 08/2018 - Left Family History Family History Sibling Hypertension Sibling Cerebrovascular accident Acute myocardial infarction Mother Asthma Father Cerebrovascular accident Dementia Alcohol abuse Social History Social History Social History: Surrogate medical decision maker: Elizacindy Watson, and sister. Code status: Full code. Smoking packs per day: 1 Smoking cigarettes per day: 20.0 Years smoked: 40 Smoking pack-years: 40.00 Smoking status: Former smoker Tobacco type: cigarettes Alcohol intake: current Drinks per week: 35 Alcohol use details: beer Substance use: current Substance use type: marijuana Other substance usage details: occasionally Do You Feel Safe in your Home?: Yes Lack of Transportation: No Lack of Food: Never True Current Housing: I Have Housing Concerned About Future Housing: No Difficulty Paying Gas/Electric Bills: No Difficulty Paying for Meds: No Currently Unemployed: No Education: High School Diploma/GED Difficulty w/ Childcare or Family Care: No Additional living arrangements comments: Lives in [place]. Has 2 children. Additional occupation/education comments: Currently unemployed. Spiritual care concerns: No Meds Home Medications and Allergies Home Medications Medication Instructions Recorded Confirmed Type folic acid 1 mg tablet 1 mg PO DAILY #30 tabs 04/13/23 10/28/23 Rx amlodipine 10 mg tablet 10 mg PO DAILY #90 tabs 07/02/23 10/28/23 Rx pantoprazole 40 mg tablet,delayed 40 mg PO QAM #90 tabs 08/29/23 10/28/23 Rx release (Protonix) levothyroxine 112 mcg tablet 112 mcg PO DAILY #90 tabs 09/11/23 10/28/23 Rx Allergies Allergy/AdvReac Type Severity Reaction Status Date / Time lisinopril Allergy Se
[2023-10-28 20:32] LABS: Anion Gap 7 mmol/L (8-16); Blood Urea Nitrogen 44 mg/dL (9-20); Calcium 8.3 mg/dL (8.4-10.2); Carbon Dioxide 24 mmol/L (22-30); Chloride 92 mmol/L (98-107); Estimated CRCL calculation 55 ml/min; Estimated Glomerular Filt Rate 51; Glucose 118 mg/dL (65-110); Potassium 3.8 mmol/L (3.4-5.0); Sodium 123 mmol/L (137-145)
[2023-10-28] MEDS: IPRATROPIUM 0.5 MG/ALBUTEROL SULFATE 2.5 MG AMPUL.NEB 3 ML INHALATION (20:45)
[2023-10-28] MEDS: ALBUMIN HUMAN 25% 25 GM/100 ML 200 ML IVPB (21:45)
[2023-10-28] MEDS: predniSONE 20 MG TABLET 40 MG PO (21:45)
[2023-10-28 22:31] LABS: Influenza A QL RT-PCR Negative (Negative); Influenza B QL RT-PCR Negative (Negative); RSV RNA, RT-PCR Negative (Negative); SARS-CoV-2 RNA PCR Negative (Negative)
[2023-10-29] VITALS (21 sets, daily range): BP systolic 123–151; BP diastolic 67–86; PULSE 89–97; RESP 17–21; TEMP 36.6–37; O2SAT 91–100
--- NOTE | 2023-10-29 | ECHO_ITS ---
Patient Info Name: Francesco Fox Age: 63 years : 1960 Gender: Male Ht: 69 in Wt: 172 lbs BSA: 1.96 m2 HR: 91 bpm BP: 146 / 81 mmHg Heart Rhythm: Indeterminant Technical Quality: Poor Exam Date: 10/29/2023 9:24 AM Exam Location: Echo Lab Patient Status: Outpatient Admit Date: 10/28/2023 Staff Ordering Physician: Ann Corbett MD Licensed Customs Broker: Brendon Sheth RDCS Attending Provider: Kiran Hylton MD Exam Type: CA echo doppler color flow Study Info Indications - hypoxia Complete two-dimensional, color flow and Doppler transthoracic echocardiogram is performed. Reason for Poor Study: poor patient cooperation Summary 1. Complete two-dimensional, color flow and Doppler transthoracic echocardiogram is performed. 2. Left ventricular chamber dimension is normal. 3. Left ventricular systolic function is normal, estimated at 65-70%. 4. The left ventricular diastolic function is grade I diastolic dysfunction. 5. Right ventricular systolic function is normal. 6. Left atrial chamber dimension is moderately enlarged. 7. Right atrial chamber dimension is mildly enlarged. 8. There is moderate mitral valve regurgitation. 9. There is mild tricuspid valve regurgitation. Left Ventricle Left ventricular chamber dimension is normal. Left ventricular systolic function is normal, estimated at 65-70%. There is no increased left ventricular wall thickness. The left ventricular diastolic function is grade I diastolic dysfunction. Right Ventricle Right ventricular chamber dimension is normal. Right ventricular systolic function is normal. Left Atria Left atrial chamber dimension is moderately enlarged. Right Atria Right atrial chamber dimension is mildly enlarged. Atrial Septum Intact interatrial septum visualized by color flow imaging. Aortic Valve The aortic valve is probable trileaflet. There is no aortic valve stenosis. There is no aortic valve regurgitation. There is moderate aortic valve calcification. Pulmonic Valve The pulmonic valve is not well visualized. Mitral Valve There is moderate mitral valve regurgitation. The mitral valve annulus is moderately calcified. Tricuspid Valve There is mild tricuspid valve regurgitation. Pericardium/Pleural There is no pericardial effusion. Inferior Vena Cava Inferior vena cava is not well visualized. Aorta The aortic root size at the sinus of Valsalva is normal. Left Ventricular Outflow Tract Name Value Normal LVOT 2D LVOT Diameter 2.0 cm LVOT Doppler LVOT Peak Gradient 5 mmHg LVOT Mean Gradient 4 mmHg LVOT VTI 34 cm LVOT VTI/AV VTI Ratio 1.1 LVOT Stroke Volume 103 ml LVOT CO 8.4 l/min LVOT CI 4.3 l/min/m2 Pulmonic Valve Name Value Normal RVOT Doppler RVOT Peak Gr
[2023-10-29] MEDS: IPRATROPIUM 0.5 MG/ALBUTEROL SULFATE 2.5 MG AMPUL.NEB 3 ML INHALATION ×4 (01:42→20:30)
[2023-10-29] MEDS: LEVOTHYROXINE SODIUM 112 MCG TABLET PO (05:54)
[2023-10-29 06:25] LABS: Hematocrit 21.2 % (42.0-52.0); Immature Granulocyte Absolute 0.08 K/mm3 (0.00-0.031); Immature Granulocyte Percent A 1.4 % (0-0.5); Immature Platelet Fraction Pct 2.8 % (0.9-11.2); Lymphocytes Percent Auto 5.4 % (18.3-44.2); Mean Corpuscular HGB Conc 32.1 g/dl (32-36); Mean Corpuscular Hemoglobin 37.4 pg (26-34); Mean Corpuscular Volume 116.5 fl (80-100); Mean Platelet Volume 9.6 fl (7.4-10.4); Monocytes Absolute Auto 0.2 K/mm3 (0.1-0.6); Monocytes Percent Auto 4.3 % (2.6-8.5); Neutrophils Percent Auto 88.9 % (45.5-73.1); Platelet Count Result 106 k/mm3 (150-375); Red Blood Count 1.82 M/mm3 (4.6-6.20); Red Cell Distribution Width 19.1 % (11.5-14.5); White Blood Count 5.6 K/mm3 (4.5-10.0)
[2023-10-29 06:35] LABS: Alanine Aminotransferase 107 U/L (6-50); Albumin Level 3.6 g/dL (3.5-5.1); Alkaline Phosphatase 131 U/L (38-126); Anion Gap 7 mmol/L (8-16); Aspartate Amino Transferase 221 U/L (17-59); Bilirubin,Total 4.9 mg/dL (0.2-1.3); Blood Urea Nitrogen 43 mg/dL (9-20); Calcium 8.5 mg/dL (8.4-10.2); Carbon Dioxide 23 mmol/L (22-30); Chloride 92 mmol/L (98-107); Estimated CRCL calculation 59 ml/min; Estimated Glomerular Filt Rate 56; Glucose 125 mg/dL (65-110); Magnesium 2.3 mg/dL (1.6-2.3); Potassium 4.2 mmol/L (3.4-5.0); Sodium 122 mmol/L (137-145)
[2023-10-29 07:09] LABS: Hemoglobin 6.8 g/dL (14.0-18.0)
[2023-10-29 07:29] LABS: Anisocytosis 1+ (NORMAL); Schistocytes 1+ (NORMAL); Tear Drop Cells 1+ (NORMAL)
[2023-10-29 07:30] LABS: Hypochromasia 2+ (NORMAL); Platelet Estimate Decreased (Adequate)
--- NOTE | 2023-10-29 08:15 | PC.NURSE ---
[facility] transfer center called. They do not have a bed at this time. Updates given.
[2023-10-29] MEDS: predniSONE 20 MG TABLET 40 MG PO (08:27)
[2023-10-29] MEDS: FUROSEMIDE INJ 40 MG/4 ML VIAL IV PUSH ×2 (08:27→20:54)
[2023-10-29] MEDS: LACTULOSE 20 GM/30 ML UDC 40 GM PO ×2 (08:27→17:17)
[2023-10-29] MEDS: FOLIC ACID 1 MG TABLET PO (08:27)
[2023-10-29] MEDS: PANTOPRAZOLE 40 MG TABLET PO (08:27)
[2023-10-29] MEDS: THIAMINE 500 MG/NS 100 ML 500 MG/100 ML BAG 200 MG IVPB (08:42)
[2023-10-29] MEDS: SPIRONOLACTONE 25 MG TABLET PO (10:52)
[2023-10-29] MEDS: SODIUM CHLORIDE 0.9% IV 250 ML 30 ML IV CONT (10:52)
--- NOTE | 2023-10-29 12:30 | PC.NURSE ---
[facility] center called for updates. No open beds at this time.
--- NOTE | 2023-10-29 15:32 | PM.TDS ---
Transfer Discharge Sum: Prov Provider Date of admission: 10/28/23 14:44 Primary care physician: Carla Mcgovern MD Admitting clinician: Sarbjit Hylton MD Consults: 10/28/23 14:47 Consult to Physician Routine Comment: Consulting Provider: Dru Lehman Reason for consultation: cirrhosis Has provider been notified: Yes Discharging clinician: Keisha Schaefer Anticipated date of transfer: 10/30/23 Receiving physician/facility: [facility] DS: Admitting Diagnosis Discharge Date 10/29/23 Admitting Diagnosis shortness of breath DS: Discharge Diagnosis Discharge Diagnosis (1) Decompensated hepatic cirrhosis: Code(s): K72.90 - Hepatic failure, unspecified without coma; K74.60 - Unspecified cirrhosis of liver Status: Acute (2) Diastolic dysfunction: Code(s): I51.89 - Other ill-defined heart diseases Status: Acute (3) Hyponatremia: Code(s): E87.1 - Hypo-osmolality and hyponatremia Status: Acute (4) Acute on chronic anemia: Code(s): D64.9 - Anemia, unspecified Status: Chronic (5) Gastroesophageal reflux disease: Qualifiers: Esophagitis presence: without esophagitis Qualified Code(s): K21.9 - Gastro-esophageal reflux disease without esophagitis Code(s): K21.9 - Gastro-esophageal reflux disease without esophagitis Status: Chronic (6) Ascites: Qualifiers: Ascites type: due to alcoholic hepatitis Qualified Code(s): K70.11 - Alcoholic hepatitis with ascites Code(s): R18.8 - Other ascites Status: Acute (7) COPD (chronic obstructive pulmonary disease): Code(s): J44.9 - Chronic obstructive pulmonary disease, unspecified Status: Chronic (8) Tobacco abuse: Code(s): Z72.0 - Tobacco use Status: Chronic (9) Alcohol abuse: Code(s): F10.10 - Alcohol abuse, uncomplicated Status: Chronic (10) Stage 3a chronic kidney disease (CKD): Code(s): N18.31 - Chronic kidney disease, stage 3a Status: Chronic Plan The patient has a very high meld score and is on wait list to [facility] or [facility] for hepatology specialist. However, he has been started on Lasix 40 mg IV b.i.d. along with lactulose 40 g p.o. b.i.d. thiamine DuoNebs and albumin x1. His lactic acidosis has cleared and he has done much better in regards to symptomatology. He has acute on chronic kidney disease which very well could be due to hepatorenal syndrome in the setting of acute decompensated liver failure. Will hold off on his home medication amlodipine and restart his Protonix and levothyroxine. He has chronic hyponatremia - 122 today. Continue to trend. His liver enzymes are slightly more elevated than usual. 221/107 today. Continue to monitor those. His ammonia levels 9. Monitor his anemia. SCDs only. As for his presenting a plane and shortness of breath he is an acute hypoxic respiratory failure with multifactorial etiology. Echocardiogram unrevealing with EF 65-70%. He has an elevated BNP on admission. He does have moderate bilateral pleural effusions so thoracentesis is a consideration however we will continue Lasix for now. COVID flu RSV PCR negative. He could certainly have a component of obstructive disease related to smoking and he does admit to history of asthma and he has wheezing and diminished lung sounds. His ABG however does not demonstrate hypercapnia although he has probably been blowing off CO2 due to his metabolic acidosis/lactic acidosis. Continue DuoNeb scheduled along with nasal cannula. Start prednisone. This gentleman seems quite reluctant to advocate for himself and participate in management. He has been heavily counseled on tobacco and alcohol abuse and the importance of adhering to medical recommendations. FEN: Saline lock IV GI prophylaxis: Protonix DVT prophylaxis: SCDs only Lines: Peripheral IV Code Status: Full code Dispo:
[2023-10-29 16:44] LABS: Hematocrit 24.4 % (42.0-52.0); Hemoglobin 7.9 g/dL (14.0-18.0)
--- NOTE | 2023-10-29 19:23 | WPDGICN ---
Assessment and Plan Assessment and plan (1) Decompensated hepatic cirrhosis: Code(s): K72.90 - Hepatic failure, unspecified without coma; K74.60 - Unspecified cirrhosis of liver Status: Acute Assessment and Plan: here with chf exacerbation, anasarca, hyponatremia he will be transferred to hepatology service still drinking thiamine, iv albumin (2) Acute on chronic diastolic heart failure: Code(s): I50.33 - Acute on chronic diastolic (congestive) heart failure Status: Acute Assessment and Plan: diuresis and iv albumin creatinine down to 1.3 monitor (3) Anasarca: Code(s): R60.1 - Generalized edema Status: Acute (4) Acute on chronic anemia: Code(s): D64.9 - Anemia, unspecified Status: Chronic Assessment and Plan: monitor no signs of overt gib also low platelets (5) COPD (chronic obstructive pulmonary disease): Code(s): J44.9 - Chronic obstructive pulmonary disease, unspecified Status: Chronic (6) Chronic hepatitis C with cirrhosis: Code(s): B18.2 - Chronic viral hepatitis C; K74.60 - Unspecified cirrhosis of liver Status: Acute (7) Alcohol abuse: Code(s): F10.10 - Alcohol abuse, uncomplicated Status: Chronic Assessment and Plan: thiamine, nutrition support (8) Hyponatremia: Code(s): E87.1 - Hypo-osmolality and hyponatremia Status: Acute GI Consult Note Consult date/time: 10/29/23 19:23 Reason for consult: decompensated cirrhosis HPI: Francesco Fox is a 63 year old male know to me with?HCV and alcoholic cirrhosis (confirmed by ultrasound and also thrombocytopenia), g1a, VL 4 million and he is treatment naive- insurance denied treatment. Last egd on 05/2021 (showed mild gastritis, duodenal bx with duodenitis without celiac disease), also CHF, CKD. He came to ER few days ago with more edema and shortness of breath.? The patient stopped his Lasix, found to be hypoxic along with elevated lactic acidosis and decompensated cirrhosis/heart failure, he has been drinking a few beers per day.?Also had hyponatremia 117 but treated appropriately now 122, treated also with thiamine and Lasix/albumin.?He has been accepted to go to hepatology service but still bed pending. He is poor historian. Review of Systems Constitutional: Constitutional: Reports lethargy Eyes: Eyes: Denies blurry vision ENT: Reports Normal hearing present Cardiovascular: Cardiovascular: Reports leg edema Respiratory: Respiratory: Reports dyspnea on exertion Gastrointestinal: Gastrointestinal: Denies abdominal pain Genitourinary: Genitourinary: Denies dysuria Musculoskeletal: Musculoskeletal: Denies stiffness Integumentary/Breasts: Skin/Breast: Denies rash Neurologic: Denies Abnormal speech present [facility] Past Medical History Medical History Acute on chronic diastolic heart failure Adenomatous colon polyp Alcohol abuse Arthritis Asthma Carotid arterial disease Chronic hepatitis C with cirrhosis Chronic hyponatremia Diastolic dysfunction Encounter for screening colonoscopy Essential (primary) hypertension Gastritis Gastroesophageal reflux disease History of vitreous hemorrhage of left eye 08/2018 Hypothyroidism (acquired) Thrombocytopenia Tobacco abuse Surgical History Surgical History History of colonoscopy with polypectomy History of tonsillectomy and adenoidectomy History of vitrectomy (~08/2018) 08/2018 - Left Family History Family History Sibling Hypertension Sibling Cerebrovascular accident Acute myocardial infarction Mother Asthma Father Cerebrovascular accident Dementia Alcohol abuse Social History Social History Social History: [facility]
[2023-10-30] VITALS (15 sets, daily range): BP systolic 143–152; BP diastolic 78–87; PULSE 87–97; RESP 18–20; TEMP 36.3–36.6; O2SAT 89–100
[2023-10-30] MEDS: IPRATROPIUM 0.5 MG/ALBUTEROL SULFATE 2.5 MG AMPUL.NEB 3 ML INHALATION ×4 (02:02→20:11)
[2023-10-30] MEDS: LEVOTHYROXINE SODIUM 112 MCG TABLET PO (05:45)
[2023-10-30 05:49] LABS: Hematocrit 24.6 % (42.0-52.0); Immature Granulocyte Absolute 0.09 K/mm3 (0.00-0.031); Immature Granulocyte Percent A 1.5 % (0-0.5); Immature Platelet Fraction Pct 2.8 % (0.9-11.2); Lymphocytes Absolute Auto 0.41 K/mm3 (0.9-3.2); Mean Corpuscular HGB Conc 32.5 g/dl (32-36); Mean Corpuscular Hemoglobin 36.5 pg (26-34); Mean Corpuscular Volume 112.3 fl (80-100); Mean Platelet Volume 10.2 fl (7.4-10.4); Monocytes Percent Auto 16.3 % (2.6-8.5); Neutrophils Absolute Auto 4.4 K/mm3 (1.3-6.7); Neutrophils Percent Auto 75.2 % (45.5-73.1); Nucleated Red Blood Cells Perc 0.5 % (0.0-0.2); Platelet Count Result 91 k/mm3 (150-375); Red Blood Count 2.19 M/mm3 (4.6-6.20); Red Cell Distribution Width 23.2 % (11.5-14.5); White Blood Count 5.8 K/mm3 (4.5-10.0)
[2023-10-30 05:56] LABS: INR 1.6; Prothrombin Time 19.9 Seconds (11.1-14.7)
[2023-10-30 05:57] LABS: Partial Thromboplastin Time 32.7 SECONDS (22.3-36.8)
[2023-10-30 05:59] LABS: Glucose Point of Care 147 mg/dl (65-105)
[2023-10-30 06:12] LABS: Alanine Aminotransferase 104 U/L (6-50); Albumin Level 3.6 g/dL (3.5-5.1); Alkaline Phosphatase 142 U/L (38-126); Anion Gap 8 mmol/L (8-16); Aspartate Amino Transferase 178 U/L (17-59); Bilirubin Direct 0.7 mg/dL (0-0.3); Bilirubin,Total 4.9 mg/dL (0.2-1.3); Blood Urea Nitrogen 44 mg/dL (9-20); Calcium 8.9 mg/dL (8.4-10.2); Carbon Dioxide 26 mmol/L (22-30); Chloride 94 mmol/L (98-107); Estimated CRCL calculation 64 ml/min; Estimated Glomerular Filt Rate > 60; Glucose 115 mg/dL (65-110); Potassium 3.7 mmol/L (3.4-5.0); Sodium 128 mmol/L (137-145)
[2023-10-30 08:08] LABS: Anisocytosis 1+ (NORMAL); Hypochromasia 1+ (NORMAL); Macrocytosis 1+ (NORMAL); Platelet Estimate Decreased (Adequate); Schistocytes None Seen (NORMAL)
[2023-10-30] MEDS: predniSONE 20 MG TABLET 40 MG PO (08:35)
[2023-10-30] MEDS: SPIRONOLACTONE 25 MG TABLET PO (08:35)
[2023-10-30] MEDS: FUROSEMIDE INJ 40 MG/4 ML VIAL IV PUSH ×2 (08:35→20:36)
[2023-10-30] MEDS: PANTOPRAZOLE 40 MG TABLET PO (08:35)
[2023-10-30] MEDS: FOLIC ACID 1 MG TABLET PO (08:35)
[2023-10-30] MEDS: LACTULOSE 20 GM/30 ML UDC 40 GM PO ×2 (08:35→17:32)
[2023-10-30 08:36] LABS: Glucose Point of Care 105 mg/dl (65-105)
[2023-10-30 12:12] LABS: Glucose Point of Care 120 mg/dl (65-105)
--- NOTE | 2023-10-30 13:41 | PC.NURSE ---
[facility] have reached out. There are still no beds at this time.
--- NOTE | 2023-10-30 16:37 | WPDGIPROGNO ---
Progress Note: A&P Assessment and Plan (1) Decompensated hepatic cirrhosis: Code(s): K72.90 - Hepatic failure, unspecified without coma; K74.60 - Unspecified cirrhosis of liver Status: Acute Assessment and Plan: hcv and alcohol abuse also component of alcoholic hepatitis Maddrey score 33 supportive care, thiamine, nutrition, etc transfer to hepatology service hyponatremia has improved (2) Hyponatremia: Code(s): E87.1 - Hypo-osmolality and hyponatremia Status: Acute Assessment and Plan: slowly improved (3) Acute on chronic anemia: Code(s): D64.9 - Anemia, unspecified Status: Chronic Assessment and Plan: stable also chronic thrombocytopenia from liver disease (4) Thrombocytopenia: Code(s): D69.6 - Thrombocytopenia, unspecified Status: Acute (5) Ascites: Qualifiers: Ascites type: due to alcoholic hepatitis Qualified Code(s): K70.11 - Alcoholic hepatitis with ascites Code(s): R18.8 - Other ascites Status: Acute Assessment and Plan: no enough for paracentesis (6) Chronic hepatitis C with cirrhosis: Code(s): B18.2 - Chronic viral hepatitis C; K74.60 - Unspecified cirrhosis of liver Status: Acute (7) Alcoholic hepatitis: Code(s): K70.10 - Alcoholic hepatitis without ascites Status: Acute (8) Diastolic dysfunction: Code(s): I51.89 - Other ill-defined heart diseases Status: Acute Subjective Date/time seen: 10/30/23 16:37 Interval history: he is comfortable, no new events Review of Systems Review of Systems: All systems reviewed & are unremarkable except as noted in HPI and below Exam Const: Other: chronically ill appearing HENMT: Mouth: Yes moist mucous membranes Eyes: Pupils: Equal, round and reactive pupils present Neck: Neck: supple Resp: Auscultation: rhonchi, wheezes and diminished lung sounds Other: Coarse expiratory wheeze Cardio: Rate: regular rate Rhythm: regular rhythm GI: Inspection: distended GI Palp: Yes Soft to palpation and No Tenderness to palpation present (GI) Auscultation: normal bowel sounds Other: small umbilical hernia, no pain Skin: General skin exam: no rashes or lesions noted Neuro: Speech: No normal speech Motor exam (neuro): 5/5 motor strength present throughout Other: awake and alert but seems slightly confused Extrem: General: edema (Trace bilateral lower extremity edema distal to the knees) Psych: Other: slightly confused Objective Data Vital Signs Vital Signs: Vital Signs - 24 hr 10/29/23 20:30 10/29/23 20:44 10/29/23 20:40 Temperature Pulse Rate 92 92 94 Respiratory Rate 20 20 Blood Pressure Pulse Oximetry 97 Oxygen Delivery Nasal Cannula Oxygen Flow Rate 2 Fraction of Inspired Oxygen 10/29/23 20:00 10/29/23 22:00 10/30/23 02:02 Temperature 97.9 F Pulse Rate 97 93 Respiratory Rate 21 H 20 Blood Pressure 139/82 Pulse Oximetry 99 99 Oxygen Delivery Nasal Cannula Oxygen Flow Rate 2 Fraction of Inspired Oxygen 10/30/23 02:11 10/30/23 07:48 10/30/23 07:52 Temperature Pulse Rate 92 91 91 Respiratory Rate 20 20 20 Blood Pressure Pulse Oximetry 94 Oxygen Delivery Room Air Oxygen Flow Rate Fraction of Inspired Oxygen 10/30/23 07:57 10/30/23 06:00 10/30/23 08:00 Temperature 97.7 F Pulse Rate 90 97 Respiratory Rate 20 20 Blood Pressure 143/80 H 143/80 H Pulse Oximetry 98 Oxygen Delivery Oxygen Flow Rate Fraction of Inspired Oxygen 10/30/23 08:00 10/30/23 13:44 10/30/23 13:53 Temperature Pulse Rate 94 93 Respiratory Rate 20 20 Blood Pressure Pulse Oximetry Oxygen Delivery Room Air Oxygen Flow Rate Fraction of Inspired Oxygen 10/30/23 14:00 Temperature 97.9 F Pulse Rate 90 Respiratory Rate 18 Blood Pressure 152/78 H Pulse Oximetry 100 Oxygen Delivery Ox
[2023-10-30 17:27] LABS: Glucose Point of Care 125 mg/dl (65-105)
--- NOTE | 2023-10-30 18:10 | P.PNIM_ITS ---
Progress Note: A&P Assessment and Plan (1) Decompensated hepatic cirrhosis: Code(s): K72.90 - Hepatic failure, unspecified without coma; K74.60 - Unspecified cirrhosis of liver Status: Acute Assessment and Plan: * history of hepatitis C and alcohol abuse * supportive care, thiamine, nutrition * excepted by hepatology services, pending transfer to [facility] or [facility] * hyponatremia is improved today 128 * AST 178, bili 4.9, ALT 104, alk-phos 142 (2) Diastolic dysfunction: Code(s): I51.89 - Other ill-defined heart diseases Status: Acute Assessment and Plan: * recent echo notes Left ventricular systolic function is normal, estimated at 65-70%.The left ventricular diastolic function is grade I diastolic dysfunction * continue diuresis * Lasix IV q.12 (3) Hyponatremia: Code(s): E87.1 - Hypo-osmolality and hyponatremia Status: Acute Assessment and Plan: * improved 128 today (4) Acute on chronic anemia: Code(s): D64.9 - Anemia, unspecified Status: Chronic Assessment and Plan: * H&H 8.9/ 24.6 * chronic thrombocytopenia- platelets 91 today (5) Gastroesophageal reflux disease: Qualifiers: Esophagitis presence: without esophagitis Qualified Code(s): K21.9 - Gastro-esophageal reflux disease without esophagitis Code(s): K21.9 - Gastro-esophageal reflux disease without esophagitis Status: Chronic Assessment and Plan: * continue Protonix (6) Ascites: Qualifiers: Ascites type: due to alcoholic hepatitis Qualified Code(s): K70.11 - Alcoholic hepatitis with ascites Code(s): R18.8 - Other ascites Status: Acute Assessment and Plan: * No paracentesis required at this time per GI (7) COPD (chronic obstructive pulmonary disease): Code(s): J44.9 - Chronic obstructive pulmonary disease, unspecified Status: Chronic Assessment and Plan: * history of * observed on room air no respiratory distress noted upon exam * continue to monitor (8) Tobacco abuse: Code(s): Z72.0 - Tobacco use Status: Chronic Assessment and Plan: * tobacco cessation information provided extensively, provided potential treatment options plan, discuss risk and benefits of cessation, educated provided at length of greater than 10 minutes. (9) Alcohol abuse: Code(s): F10.10 - Alcohol abuse, uncomplicated Status: Chronic Assessment and Plan: * patient states he still drinks a few beers a day * cautious in place * continue diet, nutritional support (10) Stage 3a chronic kidney disease (CKD): Code(s): N18.31 - Chronic kidney disease, stage 3a Status: Chronic Assessment and Plan: * BUN 44, creatinine 1.0 Plan The patient has a very high meld score and is on wait list to [facility] or [place] for hepatology specialist. However, he has been started on Lasix 40 mg IV b.i.d. along with lactulose 40 g p.o. b.i.d. thiamine DuoNebs and albumin x1. His lactic acidosis has cleared and he has done much better in regards to symptomatology. He has acute on chronic kidney disease which very well could be due to hepatorenal syndrome in the setting of acute decompensated liver failure. Will hold off on his home medication amlodipine and restart his Protonix and levothyroxine. He has chronic hyponatremia - 122 today. Continue to trend. His liver enzymes are slightly more elevated than usual. 221/107 today. Continue to monitor those. His ammonia levels 9.
--- NOTE | 2023-10-30 18:10 | PM.IMPN ---
Progress Note: A&P Assessment and Plan (1) Decompensated hepatic cirrhosis: Code(s): K72.90 - Hepatic failure, unspecified without coma; K74.60 - Unspecified cirrhosis of liver Status: Acute Assessment and Plan: history of hepatitis C and alcohol abuse supportive care, thiamine, nutrition excepted by hepatology services, pending transfer to [facility] or [facility] hyponatremia is improved today 128 AST 178, bili 4.9, ALT 104, alk-phos 142 (2) Diastolic dysfunction: Code(s): I51.89 - Other ill-defined heart diseases Status: Acute Assessment and Plan: recent echo notes Left ventricular systolic function is normal, estimated at 65-70%.The left ventricular diastolic function is grade I diastolic dysfunction continue diuresis Lasix IV q.12 (3) Hyponatremia: Code(s): E87.1 - Hypo-osmolality and hyponatremia Status: Acute Assessment and Plan: improved 128 today (4) Acute on chronic anemia: Code(s): D64.9 - Anemia, unspecified Status: Chronic Assessment and Plan: H&H 8.9/ 24.6 chronic thrombocytopenia- platelets 91 today (5) Gastroesophageal reflux disease: Qualifiers: Esophagitis presence: without esophagitis Qualified Code(s): K21.9 - Gastro-esophageal reflux disease without esophagitis Code(s): K21.9 - Gastro-esophageal reflux disease without esophagitis Status: Chronic Assessment and Plan: continue Protonix (6) Ascites: Qualifiers: Ascites type: due to alcoholic hepatitis Qualified Code(s): K70.11 - Alcoholic hepatitis with ascites Code(s): R18.8 - Other ascites Status: Acute Assessment and Plan: No paracentesis required at this time per GI (7) COPD (chronic obstructive pulmonary disease): Code(s): J44.9 - Chronic obstructive pulmonary disease, unspecified Status: Chronic Assessment and Plan: history of observed on room air no respiratory distress noted upon exam continue to monitor (8) Tobacco abuse: Code(s): Z72.0 - Tobacco use Status: Chronic Assessment and Plan: tobacco cessation information provided extensively, provided potential treatment options plan, discuss risk and benefits of cessation, educated provided at length of greater than 10 minutes. (9) Alcohol abuse: Code(s): F10.10 - Alcohol abuse, uncomplicated Status: Chronic Assessment and Plan: patient states he still drinks a few beers a day cautious in place continue diet, nutritional support (10) Stage 3a chronic kidney disease (CKD): Code(s): N18.31 - Chronic kidney disease, stage 3a Status: Chronic Assessment and Plan: BUN 44, creatinine 1.0 Plan The patient has a very high meld score and is on wait list to [facility] or [place] for hepatology specialist. However, he has been started on Lasix 40 mg IV b.i.d. along with lactulose 40 g p.o. b.i.d. thiamine DuoNebs and albumin x1. His lactic acidosis has cleared and he has done much better in regards to symptomatology. He has acute on chronic kidney disease which very well could be due to hepatorenal syndrome in the setting of acute decompensated liver failure. Will hold off on his home medication amlodipine and restart his Protonix and levothyroxine. He has chronic hyponatremia - 122 today. Continue to trend. His liver enzymes are slightly more elevated than usual. 221/107 today. Continue to monitor those. His ammonia levels 9. Monitor his anemia. SCDs only. As for his presenting a plane and shortness of breath he is an acute hypoxic respiratory failure with multifactorial etiology. Echocardiogram unrevealing with EF 65-70%. He has an elevated BNP on admission. He does have moderate bilateral pleural effusions so thoracentesis is a consideration however we will continue Lasix for now. COVID flu RSV PCR negative. He could certainly castillo
--- NOTE | 2023-10-30 20:59 | PC.NURSE ---
Report called to Xochitl at [facility]
== END 2023-10-30 21:45 | disposition short-term general hospital (02) | DRG 280 ==
LOC: ANHED 10-28 14:20 → ANH3MED 10-28 15:39
PROVIDERS: Emergency Medicine; General Practice; Admitting Provider Internal Medicine; Emergency Provider Emergency Medicine; PCP Family Medicine; Visit Provider Nurse Practitioner
DX: K70.31 Alcoholic cirrhosis of liver with ascites (principal); K70.11 Alcoholic hepatitis with ascites; K72.90 Hepatic failure, unspecified without coma; I13.0 Hypertensive heart and chronic kidney disease with heart failure and stage 1 through stage 4 chronic kidney disease, or unspecified chronic kidney disease; I50.33 Acute on chronic diastolic (congestive) heart failure; K76.7 Hepatorenal syndrome; J96.01 Acute respiratory failure with hypoxia; N18.31 Chronic kidney disease, stage 3a; B18.2 Chronic viral hepatitis C; E87.1 Hypo-osmolality and hyponatremia; K21.9 Gastro-esophageal reflux disease without esophagitis; E03.9 Hypothyroidism, unspecified; D64.9 Anemia, unspecified; J44.9 Chronic obstructive pulmonary disease, unspecified; I77.9 Disorder of arteries and arterioles, unspecified; M19.90 Unspecified osteoarthritis, unspecified site; J45.909 Unspecified asthma, uncomplicated; F10.10 Alcohol abuse, uncomplicated; Z91.148 Patient's other noncompliance with medication regimen for other reason; Z20.822 Contact with and (suspected) exposure to COVID-19; F17.210 Nicotine dependence, cigarettes, uncomplicated
CPT/HCPCS: 36415; 36430; 36600; 71045; 71275; 74177; 80048; 80053; 80076; 80307; 81003; 82140; 82805; 82948; 83605; 83690; 83735; 83880; 84145; 84484; 85014; 85018; 85025; 85055; 85610; 85730; 86850; 86900; 86901; 86923; 87637; 93005; 93306; 94640; 96361; 96365; 96366; 96367; 96374; 96375; 96376; 99285; A9270; G0378; G0379; J1940; J3411; J7030; J7050; J7512; P9016; P9047; Q9967

== ENCOUNTER 2023-11-22 11:42 | Emergency (ER) | payer OTHER, SELFPAY ==
[2023-11-22] VITALS (12 sets, daily range): BP systolic 126–168; BP diastolic 67–97; PULSE 87–100; RESP 12–18; TEMP 36.4–36.7; O2SAT 95–100
--- NOTE | ~2023-11-22 | CT_ITS ---
EXAMINATION: CT chest abdomen pelvis w con DATE: 11/22/2023 13:34 CDT INDICATION: Shortness of breath. Ascites. TECHNIQUE: Computed tomography (CT) of the chest, abdomen, and pelvis was performed with 100 cc Omnip aque 350 intravenous contrast. The dose-length product was 1971.78 mGy-cm. Automated exposure control and iterative reconstruction technique were employed. COMPARISON: None FINDINGS: CHEST CT: Small pleural effusions. There is subcutaneous edema of the chest and abdominal mccabe. Right hydrocel e. There is diffuse scrotal edema. There is a large amount of ascites. No endobronchial lesions. Ther e is dependent atelectasis in the lung bases. ABDOMEN/PELVIS CT: Cirrhosis of the liver. The spleen, pancreas, adrenal glands are unremarkable. There is medullary nep hrocalcinosis of the kidneys. There is extensive collateral vessel formation in the upper abdomen, pr esumably from portal hypertension. Colonic diverticulosis without evidence for diverticulitis. Nonobs tructive bowel pattern. Small umbilical hernia containing fluid and a knuckle of nonobstructed bowel. There is atherosclerosis. There is bilateral inguinal lymphadenopathy. IMPRESSION: 1. Small pleural effusions with bibasilar dependent atelectasis. 2: Cirrhosis of the liver with evidence for portal hypertension. 3: Anasarca characterized by pleural effusions, ascites and diffuse body wall edema. 4: Right hydrocele with diffuse scrotal wall edema. 5: Bilateral inguinal lymphadenopathy, likely reactive. Reviewed, dictated and finalized at location B. IMPRESSION: 1. Small pleural effusions with bibasilar dependent atelectasis. 2: Cirrhosis of the liver with evidence for portal hypertension. 3: Anasarca characterized by pleural effusions, ascites and diffuse body wall e mariel. 4: Right hydrocele with diffuse scrotal wall edema. 5: Bilateral inguinal lymphadenopathy, likely reactive.
--- NOTE | ~2023-11-22 | US_ITS ---
EXAMINATION: US paracentesis abd w/image DATE: 11/22/2023 16:58 INDICATION: Ascites. TECHNIQUE: The procedure and its risks, benefits, and alternatives were discussed with the patient. P otential risks discussed included bleeding and infection. The skin was prepped and draped in sterile fashion. 1% lidocaine was used for local anesthesia. Under ultrasound guidance, a 5 Fr catheter with trochar was advanced into the ascites in the right lower quadrant. Fluid was aspirated. The catheter was removed, and a dressing was applied. There were no immediate complications. FINDINGS: Ultrasound images demonstrate ascites and the catheter within the fluid. IMPRESSION: 1. Successful ultrasound-guided paracentesis yielding 3400 mL of yellow fluid. Reviewed, dictated and finalized at location A.
--- NOTE | 2023-11-22 11:56 | ECG_ITS ---
Measurements Intervals [place] Rate: 91 P: 69 SD: 197 QRS: 47 QRSD: 89 T: 27 QT: 356 QTc: 439 Interpretive Statements SINUS RHYTHM DELAYED PRECORDIAL R/S TRANSITION LOW QRS VOLTAGE IN PRECORDIAL LEADS CANNOT RULE OUT SEPTAL INFARCT, AGE INDETERMINATE BORDERLINE ST-T WAVE ABNORMALITY- INF/LAT LEADS BASELINE ARTIFACT- I, II, AVR, AVL, AVF, V1-V6 ABNORMAL ECG COMPARED TO ECG 10/28/2023 12:15:07 NO SIGNIFICANT CHANGES Electronically Signed On 11-22-2023 12:00:00 CDT by Jose Angel Rajan D.O.
--- NOTE | 2023-11-22 12:10 | ED.EXTPRO ---
HPI - Extremity Problem General Chief complaint: Extremity Problem,Nontraumatic Stated complaint: SOB Time Seen by Provider: 11/22/23 11:56 History of Present Illness HPI Narrative: 63-year-old male presents emergency department for evaluation of abdominal ascites, shortness of breath and testicular edema. Patient does have history of CHF, anasarca, cirrhosis. patient reports he was admitted at [facility] and was discharged on 11/11. Related Data Home Medications Medication Instructions Recorded Confirmed acetaminophen 500 mg tablet 500 mg PO Q6H PRN 11/21/23 11/21/23 lactulose 10 gram/15 mL oral 15 ml PO TID 11/21/23 11/21/23 solution multivitamin (Daily Multi-Vitamin 1 tablet PO DAILY 11/21/23 11/21/23 tablet) Allergies Allergy/AdvReac Type Severity Reaction Status Date / Time lisinopril Allergy Severe Swelling Verified 11/21/23 13:20 of Lip/Tongue/Throat bee venom protein (honey bee) Allergy Hives Verified 11/21/23 13:20 Review of Systems Review of Systems: All systems reviewed & are unremarkable except as noted in HPI and below PMFSH Past Medical History Medical History Acute on chronic diastolic heart failure Adenomatous colon polyp Alcohol abuse Alcoholic hepatitis Arthritis Asthma Carotid arterial disease Chronic hepatitis C with cirrhosis Chronic hyponatremia Diastolic dysfunction Essential (primary) hypertension Gastritis Gastroesophageal reflux disease History of vitreous hemorrhage of left eye 08/2018 Hypothyroidism (acquired) Thrombocytopenia Tobacco abuse Surgical History Surgical History History of colonoscopy with polypectomy History of tonsillectomy and adenoidectomy History of vitrectomy (~08/2018) 08/2018 - Left Family History Family History Sibling Hypertension Sibling Cerebrovascular accident Acute myocardial infarction Mother Asthma Father Cerebrovascular accident Dementia Alcohol abuse Social History Social History Social History: Surrogate medical decision maker: Eliza Watson, and sister. Code status: Full code. Smoking packs per day: 1 Smoking cigarettes per day: 20.0 Years smoked: 40 Smoking pack-years: 40.00 Smoking status: Former smoker Tobacco type: cigarettes Alcohol intake: current Drinks per week: 35 Alcohol use details: beer Substance use: current Substance use type: marijuana Other substance usage details: occasionally Do You Feel Safe in your Home?: Yes Lack of Transportation: No Lack of Food: Never True Current Housing: I Have Housing Concerned About Future Housing: No Difficulty Paying Gas/Electric Bills: No Difficulty Paying for Meds: No Currently Unemployed: No Education: High School Diploma/GED Difficulty w/ Childcare or Family Care: No Additional living arrangements comments: Lives in [place]. Has 2 children. Additional occupation/education comments: Currently unemployed. Spiritual care concerns: No Exam Narrative: APPEARANCE: uncomfortable appearing HEAD: normocephalic, atraumatic. EYES: PERRLA/EOMI, conjunctivae clear. NOSE: Normal no drainage EARS:TMS clear with good light reflex. THROAT: Pharynx clear, no exudate. NECK: Supple. No adenopathy, no masses. RESPIRATORY: Airway patent, respirations nonlabored. Clear to auscultation bilaterally, no rales, rhonchi, wheezing. CARDIOVASCULAR: Regular rate and rhythm without murmurs rubs or gallops. ABDOMINAL: distended nontender abdomen MUSCULOSKELETAL: Moves all extremities. Strength/ROM intact, No edema, No calf tenderness. NEURO: Alert. Cranial nerves II through XII intact. grossly intact GENITAL: Scrotal and penile edema SKIN: Warm, dry. Normal Color PSYCHIATRIC: Normal affect/m
[2023-11-22 12:22] LABS: Basophils Absolute Auto 0.1 K/mm3 (0.0-0.1); Basophils Percent Auto 0.9 % (0.2-1.2); Eosinophils Absolute Auto 0.2 K/mm3 (0-0.3); Eosinophils Percent Auto 3.8 % (0-4.4); Hematocrit 24.7 % (42.0-52.0); Hemoglobin 7.7 g/dL (14.0-18.0); Immature Granulocyte Absolute 0.06 K/mm3 (0.00-0.031); Immature Granulocyte Percent A 1.1 % (0-0.5); Lymphocytes Absolute Auto 0.78 K/mm3 (0.9-3.2); Lymphocytes Percent Auto 14.6 % (18.3-44.2); Mean Corpuscular HGB Conc 31.2 g/dl (32-36); Mean Corpuscular Volume 118.8 fl (80-100); Mean Platelet Volume 9.5 fl (7.4-10.4); Monocytes Absolute Auto 0.6 K/mm3 (0.1-0.6); Neutrophils Absolute Auto 3.6 K/mm3 (1.3-6.7); Neutrophils Percent Auto 67.6 % (45.5-73.1); Platelet Count Result 113 k/mm3 (150-375); Red Blood Count 2.08 M/mm3 (4.6-6.20); Red Cell Distribution Width 24.3 % (11.5-14.5); White Blood Count 5.3 K/mm3 (4.5-10.0)
[2023-11-22] MEDS: HYDROmorphone HCL INJ (*CRX) 1 MG/ML SYR IV PUSH (12:29)
[2023-11-22 12:31] LABS: Ammonia 21 umol/L (9-30)
[2023-11-22 12:41] LABS: Alanine Aminotransferase 39 U/L (6-50); Albumin Level 2.4 g/dL (3.5-5.1); Alkaline Phosphatase 118 U/L (38-126); Anion Gap 6 mmol/L (4-12); Aspartate Amino Transferase 64 U/L (17-59); Bilirubin,Total 3.4 mg/dL (0.2-1.3); Blood Urea Nitrogen 24 mg/dL (9-20); Carbon Dioxide 21 mmol/L (22-30); Chloride 103 mmol/L (98-107); Estimated Glomerular Filt Rate 56; Glucose 113 mg/dL (65-110); Sodium 130 mmol/L (137-145)
[2023-11-22 12:42] LABS: INR 1.4; Prothrombin Time 17.9 Seconds (11.1-14.7)
[2023-11-22 12:43] LABS: Partial Thromboplastin Time 39.6 Seconds (22.3-36.8)
[2023-11-22 12:46] LABS: Platelet Estimate Decreased (Adequate); Poikilocytosis 1+; Schistocytes None Seen
[2023-11-22 12:47] LABS: Anisocytosis 2+
[2023-11-22 12:53] LABS: NT Pro B Type Natriuretic Pept 963 pg/mL (19.9-100); Troponin I < 0.012 ng/mL (0.000-0.034)
[2023-11-22] MEDS: FUROSEMIDE INJ 40 MG/4 ML VIAL IV PUSH (18:51)
== END 2023-11-22 19:20 | disposition short-term general hospital (02) ==
LOC: ANHED 12:39
PROVIDERS: Emergency Medicine; Emergency Provider Emergency Medicine; PCP Family Medicine
DX: K70.11 Alcoholic hepatitis with ascites (principal); B18.2 Chronic viral hepatitis C; R60.1 Generalized edema; F10.10 Alcohol abuse, uncomplicated; I25.10 Atherosclerotic heart disease of native coronary artery without angina pectoris; I50.33 Acute on chronic diastolic (congestive) heart failure; I11.0 Hypertensive heart disease with heart failure; E87.1 Hypo-osmolality and hyponatremia; E03.9 Hypothyroidism, unspecified; K21.9 Gastro-esophageal reflux disease without esophagitis; M19.90 Unspecified osteoarthritis, unspecified site; Z86.010 Personal history of colon polyps; Z87.891 Personal history of nicotine dependence; R94.31 Abnormal electrocardiogram [ECG] [EKG]; K76.6 Portal hypertension; J90 Pleural effusion, not elsewhere classified; N43.3 Hydrocele, unspecified
CPT/HCPCS: 36415; 49083; 71260; 74177; 80053; 82140; 83880; 84484; 85025; 85610; 85730; 93005; 96374; 96375; 99285; J1170; J1940; Q9967